=== PATIENT | male | born 1965 | race Two or more races ===

== ENCOUNTER 2024-10-19 14:36 | Inpatient (IN) | payer MEDICAID, OTHER ==
[~2024-10-19] VITALS: Ht 180.3 cm; Wt 66.0 kg
--- NOTE | 2024-10-19 15:40 | ED.PDOC ---
History of Present Illness HPI Comments 59 y/o M, with a Hx of tobacco and EtOH use, presents with c/o shortness of breath and cough, today. Patient endorses on unprovoked onset of symptoms that have been persisting for 1x week, now. He comments on last tobacco cigarette use being 3x weeks ago, with no additional relevant or pertinent Hx reported, such as recent sick contact or travel along with any significant past medical, surgical, or family Hx. He denies having any chest pain, palpitation, phlegm production, fever, chills, or other associated symptoms or modifiers at this time. Time Seen by MD: 15:25 Reviewed Notes: Nurses Notes, Medications, Allergies Allergies: Coded Allergies: NO KNOWN ALLERGIES (Unverified , 10/19/24) Information Source: Patient Mode of Arrival: Ambulatory Severity: Moderate Timing: Weeks Duration: Since onset Prehospital treatment: None Past Medical History PAST MEDICAL HISTORY: Denies Surgical History: Denies all surgeries Family History Family History: Unknown Social History Smoker: Cigarettes Alcohol: Occasionally Drugs: Denies Drug Use Lives In: Home Constitutional: denies: chills, diaphoresis, fatigue, fever, malaise, sweats, weakness, others EENTM: denies: blurred vision, double vision, ear bleeding, ear discharge, ear drainage, ear pain, ear ringing, eye pain, eye redness, hearing loss, mouth pain, mouth swelling, nasal discharge, nose bleeding, nose congestion, nose pain, photophobia, tearing, throat pain, throat swelling, voice changes, others Respiratory: reports: cough, shortness of breath; denies: hemoptysis, orthopnea, SOB at rest, SOB with excertion, stridor, wheezing, others Cardiovascular: denies: chest pain, dizzy spells, diaphoresis, Dyspnea on exertion, edema, irregular heart beat, left arm pain, lightheadedness, palpitations, PND, syncope, others Gastrointestinal: denies: abdomen distended, abdominal pain, blood streaked bowels, constipated, diarrhea, dysphagia, difficulty swallowing, hematemesis, melena, nausea, poor appetite, poor fluid intake, rectal bleeding, rectal pain, vomiting, others Genitourinary: denies: burning, dysuria, flank pain, frequency, hematuria, incontinence, penile discharge, penile sore, pain, testicle pain, testicle swelling, urgency, others Neurological: denies: dizziness, fainting, headache, left sided numbness, left sided weakness, numbness, paresthesia, pre-existing deficit, right sided numbness, right sided weakness, seizure, speech problems, tingling, tremors, weakness, others Musculoskeletal: denies: back pain, gout, joint pain, joint swelling, muscle pain, muscle stiffness, neck pain, others Integumetry: denies: bruises, change in color, change in hair/nails, dryness, laceration, lesions, lumps, rash, wounds, others Allergic/Immunocompromised: denies: Difficulty Healing, Frequent Infections, Hives, Itching, others Hematologic/Lymphatic: denies: anemia, blood clots, easy bleeding, easy bruising, swollen glands, others Endocrine: denies: excessive hunger, excessive sweating, excessive thirst, excessive urination, flushing, intolerance to cold, intolerance to heat, unexpla ined weight gain, unexplained weight loss, others Psychiatric: denies: anxiety, bipolar disorder, depression, hopeless, panic disorder, schizophrenia, sleepless, suicidal, others All Other Systems: Reviewed and Negative Physical Exam General Appearance: Moderate Distress HEENT: Normal ENT Inspection, Pharynx Normal, TMs Normal Neck: Full Range of Motion, Non-Tender, Normal, Normal Inspection Respiratory: Chest Non-Tender, Decreased Breath Sounds, No Accessory Muscle Use, Respiratory Distress Cardiovascular: No Edema, No JVD, No Murmur, No Gallop, Normal Peripheral Pulses, Regular Rate/Rhythm Breast Exam: Deferred Gastrointestinal: No Organomegaly, Non Tender, No Pulsatile Mass, Normal Bowel Sounds, Soft Genitalia: Deferred Pelvic: Deferred Rectal: Deferred Extremities: No calf tenderness, Normal capillary refill, Normal inspection, Normal range of motion, Non-tender, No pedal edema Musculoskeletal : Apperance: Normal Neurologic: Alert, deep fat cook fry II-XII nml as Tested, No Motor Deficits, Normal Affect, Normal Mood, No Sensory Deficits Cerebellar Function: Normal Reflexes: Normal Skin: Dry, Normal Color, Warm Lymphatic: No Adenopathy Was a procedure done? Was a procedure done?: No Differential Dx Considerations may include: PNA, bronchitis, pleural effusions, influenza, Covid19, URI, OK, PE, X-Ray, Labs, Meds, VS Vital Signs Date Time Temp Pulse Resp B/P (MAP) Pulse Ox O2 Delivery O2 Flow Rate FiO2 10/19/24 14:36 99.3 115 20 148/111 (123) 96 Lab Test 10/19/24 16:26 10/19/24 15:35 Range/Units Troponin I High Sensitivity 52 56 *H </=54 ng/L White Blood Count 7.3 4.4-10.8 10^3/uL Red Blood Count 4.78 4.5-5.90 10^6/uL Hemoglobin 15.4 13.5-17.5 g/dL Hematocrit 45.7 41.0-53.0 % Mean Corpuscular Volume 95.7 80.0-100.0 fL Mean Corpuscular Hemoglobin 32.2 H 28.0-32.0 pg Mean Corpuscular Hemoglobin Concent 33.6 32.0-36.0 g/dL Red Cell Distribution Width 14.3 11.8-14.3 % Platelet Count 490 H 140-450 10^3/uL Mean Platelet Volume 7.8 6.9-10.8 fL Neutrophils (%) (Auto) 70.5 37.0-80.0 % Lymphocytes (%) (Auto) 21.1 10.0-50.0 % Monocytes (%) (Auto) 7.0 0.0-12.0 % Eosinophils (%) (Auto) 0.8 0.0-7.0 % Basophils (%) (Auto) 0.6 0.0-2.0 % Neutrophils # (Auto) 5.1 1.6-8.6 10 ^3/uL Lymphocytes # (Auto) 1.5 0.4-5.4 10 ^3/uL Monocytes # (Auto) 0.5 0-1.3 10 ^3/uL Eosinophils # (Auto) 0.1 0-0.8 10 ^3/uL Basophils # (Auto) 0 0-0.2 10 ^3/uL Nucleated Red Blood Cells 0.1 % D-Dimer, Quantitative 2.67 H 0.0-0.49 mg/L FEU Sodium Level 146 H 136-145 mmol/L Potassium Level 4.6 3.5-5.1 mmol/L Chloride Level 109 H 98-107 mmol/L Carbon Dioxide Level 29 20-31 mmol/L Anion Gap 8 5-15 Blood Urea Nitrogen 9 9-23 mg/dL Creatinine 0.73 0.700-1.30 mg/dL Glomerular Filtration Rate Calc 105 >90 mL/min BUN/Creatinine Ratio 12.3 10.0-20.0 Serum Glucose 99 74-106 mg/dL Calcium Level 9.7 8.7-10.4 mg/dL B-Type Natriuretic Peptide 680.31 0-100 pg/mL Chest x-ray shows: IMPRESSION: Severe multifocal airspace disease. The CBC is within normal limits The BNP is 680.2 The D-dimer is elevated at 2.67 The chemistry panel is basically within normal range. We are going to order a CT scan of the chest to rule out PE The troponin level is elevated x2 At this time there is a concern that the patient may have a PC The patient was being admitted to the hospitalist at this time. Images Reviewed?: Images reviewed and evaluated by me Time of 1ST Reevaluation: 15:55 Reevaluation 1ST: Unchanged Patient Education/Counseling: Diagnosis, Treatment, Prognosis Family Education/Counseling: No Family Present Departure 1 Departure Time of Disposition: 18:56 Impression: Primary Impression: Acute chest pain Additional Impressions: Shortness of breath Elevated d-dimer Disposition: ADMITTED INPATIENT Admit to: Tele Condition: Fair Critical Care Note Critical Care Time?: Yes (55 min-critical care time only) Stability Stability form required: Yes Unstable for transfer: Telemetry monitoring (Telemetry monitoring required), ED Physician Assesment (Clinical assesment) Heart Score Heart Score: Heart Score Response (Comments) Value History N/A 0 EKG Normal 0 Age 45-64 1 Risk Factors 1 or 2 risk factors 1 Troponin Normal limit 0 Total 2 I personally scribed for MADDI NAGY MD ([email or web address]) on 10/19/24 at 15:40. Electronically submitted by Donal Courtney ([email or web address]). MADDI NAGY MD Oct 19, 2024 15:40
--- NOTE | 2024-10-19 15:57 | DVH ---
CHEST RADIOGRAPH Indication: sob Technique: Frontal and lateral view of the chest was obtained Comparison: None FINDINGS: Lines and Tubes: None Lungs: Severe multifocal airspace disease. Pleura: No effusion. No pneumothorax. Cardiomediastinal contours: Unremarkable Bones: Unremarkable IMPRESSION: Severe multifocal airspace disease.
[2024-10-19 16:02] LABS: Eosinophils # (auto) 0.1 10 ^3/uL (0-0.8); Hemoglobin 15.4 g/dL (13.5-17.5); Lymphocytes # (auto) 1.5 10 ^3/uL (0.4-5.4); Mean Corpuscular Hemoglobin 32.2 pg (28.0-32.0); Red Cell Distribution Width 14.3 % (11.8-14.3)
[2024-10-19 16:04] LABS: Basophils # (auto) 0 10 ^3/uL (0-0.2); Basophils % (auto) 0.6 % (0.0-2.0); Eosinophils % (auto) 0.8 % (0.0-7.0); Hematocrit 45.7 % (41.0-53.0); Lymphocytes % (auto) 21.1 % (10.0-50.0); Mean Corpuscular Hgb Conc. 33.6 g/dL (32.0-36.0); Mean Corpuscular Volume 95.7 fL (80.0-100.0); Monocytes # (auto) 0.5 10 ^3/uL (0-1.3); Neutrophils # (auto) 5.1 10 ^3/uL (1.6-8.6); Neutrophils % (auto) 70.5 % (37.0-80.0); Nucleated Red Blood Cells % 0.1 %; Platelet Count (auto) 490 10^3/uL (140-450); Red Blood Cells 4.78 10^6/uL (4.5-5.90); White Blood Cell 7.3 10^3/uL (4.4-10.8)
[2024-10-19 16:12] LABS: Potassium 4.6 mmol/L (3.5-5.1)
[2024-10-19 16:13] LABS: Anion Gap 8 (5-15); Calcium 9.7 mg/dL (8.7-10.4); Carbon Dioxide 29 mmol/L (20-31)
[2024-10-19 16:18] LABS: BUN/Creatinine Ratio 12.3 (10.0-20.0); Glucose 99 mg/dL (74-106)
[2024-10-19 16:20] LABS: Blood Urea Nitrogen 9 mg/dL (9-23); Chloride 109 mmol/L (98-107); Sodium 146 mmol/L (136-145)
[2024-10-19] MEDS: IOHEXOL 350 MG/ML 100ML IJ ONE (21:45)
[2024-10-19 22:08] LABS: Basophils # (auto) 0 10 ^3/uL (0-0.2); Basophils % (auto) 0.6 % (0.0-2.0); Eosinophils # (auto) 0.1 10 ^3/uL (0-0.8); Lymphocytes # (auto) 1.6 10 ^3/uL (0.4-5.4)
[2024-10-19 22:09] LABS: Rapid Influenza A Negative (Negative); Rapid Influenza B Negative (Negative)
[2024-10-19 22:10] LABS: Eosinophils % (auto) 0.7 % (0.0-7.0); Lymphocytes % (auto) 19.1 % (10.0-50.0); Mean Corpuscular Hemoglobin 32.4 pg (28.0-32.0); Mean Corpuscular Hgb Conc. 33.4 g/dL (32.0-36.0); Monocytes # (auto) 0.6 10 ^3/uL (0-1.3); Monocytes % (auto) 7.7 % (0.0-12.0); Neutrophils # (auto) 5.9 10 ^3/uL (1.6-8.6); Neutrophils % (auto) 71.9 % (37.0-80.0); Platelet Count (auto) 459 10^3/uL (140-450); Red Blood Cells 4.64 10^6/uL (4.5-5.90); Red Cell Distribution Width 14.6 % (11.8-14.3); White Blood Cell 8.3 10^3/uL (4.4-10.8)
[2024-10-19 22:10] LABS: COVID19 ANTIGEN SOFIA FIA NEGATIVE (NEGATIVE)
--- NOTE | 2024-10-19 22:20 | DVH ---
CLINICAL HISTORY: sob and cp TECHNIQUE: CT angiogram of the chest was performed with intravenous contrast. 100 mL Omnipaque 350 in jected 3D MIP reconstructed images were created and archived on the PACS system. This exam was perfor med according to our departmental dose optimization program. Up-to-date CT equipment and radiation do se reduction techniques are utilized as appropriate. WID: COMPARISON: None FINDINGS: Lower Neck: Unremarkable Axilla, Mediastinum and Angi: Mildly prominent mediastinal and hilar lymph nodes. There is no axillar y lymphadenopathy. Heart and Great Vessels: Mild cardiomegaly. No pericardial effusion. Thoracic aorta is patent and no rmal caliber with patent 3-vessel aortic arch. There is no central, segmental, or subsegmental pulmon pradip artery filling defect to suggest pulmonary embolism. Airway, Lungs and Pleura: Trachea and central airways are patent. There is bronchial wall thickening bilaterally. There are patchy mixed airspace opacities in the bilateral lungs greatest in the right u pper lobe. Interlobular septal thickening in the lungs. There are small to moderate bilateral pleura l effusions. Linear subsegmental atelectasis or scarring in the basilar left upper and lower lobes. M ild paraseptal emphysema. There is no pneumothorax. Chest Wall and Osseous Structures: No destructive osseous lesion. Mild chest wall edema. Upper abdomen: No acute abnormality. IMPRESSION: 1. No evidence of pulmonary embolism. 2. CHF and/or volume overload, with mild cardiomegaly, mild interstitial pulmonary edema and small to moderate bilateral pleural effusions. 3. Patchy mixed airspace opacities bilaterally greatest in the right upper lobe which could reflect m ultifocal pneumonia and/or pulmonary edema.
[2024-10-19 22:21] LABS: Urine Bacteria None Seen /hpf (None Seen)
[2024-10-19 22:25] LABS: Albumin 3.7 g/dL (3.2-4.8); Anion Gap 6 (5-15); BUN/Creatinine Ratio 11.6 (10.0-20.0); Bilirubin, Total 1.2 mg/dL (0.2-1.0); Calcium 9.4 mg/dL (8.7-10.4); Carbon Dioxide 28 mmol/L (20-31); Potassium 3.9 mmol/L (3.5-5.1); Sodium 142 mmol/L (136-145); Total Protein 6.4 g/dL (5.7-8.2)
[2024-10-19 22:27] LABS: Alanine Aminotransferase 40 U/L (7-40); Alkaline Phosphatase 121 U/L (46-116); Aspartate Aminotransferase 49 U/L (13-40); Blood Urea Nitrogen 8 mg/dL (9-23); Chloride 108 mmol/L (98-107); Glucose 108 mg/dL (74-106)
[2024-10-19 22:32] LABS: Urine Blood Negative /uL (Negative); Urine Clarity Clear (Clear); Urine Color Yellow (Yellow); Urine Mucus FEW (None Seen); Urine Protein, UAD 1+ (Negative); Urine Squamous Epithelial Cell FEW /hpf (<5); Urine Urobilinogen 6 mg/dL (Negative); Urine WBC 1 /hpf (0 - 3)
[2024-10-19 22:36] LABS: Urine Specific Gravity 1.035 (1.001-1.035)
[2024-10-19 22:44] LABS: Amphetamine Screen, Urine Neg (NEGATIVE); Barbiturate Scree,Urine Neg (NEGATIVE); Benzodiazephine Screen, Urine Neg (NEGATIVE); Cannabinoid Screen, Urine Neg (NEGATIVE); Cocaine Screen, Urine Neg (NEGATIVE); Opiate Scree,Urine Pos (NEGATIVE); Phencyclidine Screen, Urine Neg (NEGATIVE)
[2024-10-19] MEDS: hydrALAZINE HCL 20 MG/ML VL IV ONE (22:53)
[2024-10-19] MEDS: cefTRIAXone 1GM/50ML D5W 50 ML IV ONE (22:54)
[2024-10-20] VITALS (8 sets, daily range): BP systolic 121–153; BP diastolic 84–106; PULSE 104–112; RESP 16–18; TEMP 97.8–99.6; O2SAT 92–99
[2024-10-20] MEDS: LOSARTAN POTASSIUM 50 MG TAB PO ONE (00:02)
[2024-10-20] MEDS: FUROSEMIDE 40 MG/4 ML VIAL IV ONE (00:02)
[2024-10-20] MEDS: AZITHROMYCIN 500MG/ 250ML 250 ML IV ONE (00:05)
--- NOTE | 2024-10-20 00:09 | DVH ---
Bilateral Chest Sonogram Date: 10/19/2024 10:55 PM Clinical history: B/L pleural effusion Technique: Grayscale images obtained of the bilateral chest. Findings/IMPRESSION: Small to moderate bilateral pleural effusions.
--- NOTE | 2024-10-20 01:04 | DVHHPRES ---
History of Present Illness Resident Creating Document: THAISRAYSAJUANIS RESIDENT History of Present Illness This is a 59-year-old male with past medical history as described below came to the ED with a chief complaint of shortness of breath since the last 7-8 days. Patient reports about a week ago he had flu-like illness with a fever, cough, feels congested he is not able to expectorate the phlegm and since then he has also been having difficulty breathing which has been worsening. Patient denied similar episode of shortness of the breath before. Denies recent history of fevers, night sweats, weight loss. Patient denied any urinary symptoms of hesitancy, frequency, dribbling. Past medical history: No significant Past surgical history: ? Kidney stone removal Social history: Patient smokes a pack of cigarettes per week, pint of whiskey every day, denies other drug use No home medications No PCP Review of Systems Review of Systems Patient reports shortness of breath with increased rate of breathing Denies chest pain, palpitations, headache, dizziness, abdominal pain, pain on urination Allergies: Coded Allergies: NO KNOWN ALLERGIES (Unverified , 10/19/24) Medications Current Medications Medications Dose Ordered Sig/Marifer Route Start Time Stop Time Status Last Admin Dose Admin Furosemide 40 mg DAILY IV 10/20/24 10:00 Ceftriaxone Sodium 50 ml @ 100 mls/hr Q24H IV 10/20/24 21:00 Azithromycin 250 ml @ 125 mls/hr Q24H IV 10/20/24 21:00 Exam Vital Signs Vital Signs Date Time Temp Pulse Resp B/P (MAP) Pulse Ox O2 Delivery O2 Flow Rate FiO2 10/20/24 00:02 156/111 10/20/24 00:00 118 10/19/24 23:45 Room Air* 0 21 10/19/24 23:33 98.3 20 94 98.3 Exam Physical Examination Constitutional: Patient was alert and oriented to time, place and person and does not appear to be in any acute distress. Gen - no pallor, no icterus, no cyanosis, no clubbing, no LAD, 1+ bilateral pitting edema in lower extremities Skin - Patients skin is warm and dry. HEENT - normocephalic, atraumatic, moist mucous membranes. Neck - full ROM, no LAD, no JVD Pulmonary - left lower lung coarse crackles , diminished breath sounds in the right lower lung, no wheezes. cardiovascular - normal S1,S2 heard. no murmurs heard. peripheral pulses radial 2+, pedal 2+. GI - soft abdomen without tenderness to palpation . no hepatospleenomegaly. Bowel sounds normoactive Neurological - Bilateral upper extremity strength 5/5, bilateral lower extremity strength 5/5, no facial droop, normal speech, no tremor, no sensory deficiets. Labs/Xrays Labs Test 10/19/24 22:00 10/19/24 21:58 10/19/24 21:27 10/19/24 18:33 Range/Units White Blood Count 8.3 4.4-10.8 10^3/uL Red Blood Count 4.64 4.5-5.90 10^6/uL Hemoglobin 15.0 13.5-17.5 g/dL Hematocrit 45.0 41.0-53.0 % Mean Corpuscular Volume 97.0 80.0-100.0 fL Mean Corpuscular Hemoglobin 32.4 H 28.0-32.0 pg Mean Corpuscular Hemoglobin Concent 33.4 32.0-36.0 g/dL Red Cell Distribution Width 14.6 H 11.8-14.3 % Platelet Count 459 H 140-450 10^3/uL Mean Platelet Volume 7.2 6.9-10.8 fL Neutrophils (%) (Auto) 71.9 37.0-80.0 % Lymphocytes (%) (Auto) 19.1 10.0-50.0 % Monocytes (%) (Auto) 7.7 0.0-12.0 % Eosinophils (%) (Auto) 0.7 0.0-7.0 % Basophils (%) (Auto) 0.6 0.0-2.0 % Neutrophils # (Auto) 5.9 1.6-8.6 10 ^3/uL Lymphocytes # (Auto) 1.6 0.4-5.4 10 ^3/uL Monocytes # (Auto) 0.6 0-1.3 10 ^3/uL Eosinophils # (Auto) 0.1 0-0.8 10 ^3/uL Basophils # (Auto) 0 0-0.2 10 ^3/uL Nucleated Red Blood Cells 0.0 % Sodium Level 142 136-145 mmol/L Potassium Level 3.9 3.5-5.1 mmol/L Chloride Level 108 H 98-107 mmol/L Carbon Dioxide Level 28 20-31 mmol/L Anion Gap 6 5-15 Blood Urea Nitrogen 8 L 9-23 mg/dL Creatinine 0.69 L 0.700-1.30 mg/dL Glomerular Filtration Rate Calc 107 >90 mL/min BUN/Creatinine Ratio 11.6 10.0-20.0 Serum Glucose 108 H 74-106 mg/dL Calcium Level 9.4 8.7-10.4 mg/dL Total Bilirubin 1.2 H 0.2-1.0 mg/dL Aspartate Amino Transferase (AST) 49 H 13-40 U/L Alanine Aminotransferase (ALT) 40 7-40 U/L Alkaline Phosphatase 121 H 46-116 U/L Total Protein 6.4 5.7-8.2 g/dL Albumin 3.7 3.2-4.8 g/dL Thyroid Stimulating Hormone (TSH) 1.96 0.55-4.78 uIU/mL Urine Color Yellow Yellow Urine Clarity Clear Clear Urine pH 6.0 5.0-9.0 Urine Specific [place] 1.035 1.001-1.035 Urine Protein 1+ H Negative Urine Ketones Negative Negative Urine Blood Negative Negative /uL Urine Nitrite Negative Negative Urine Bilirubin Negative Negative Urine Urobilinogen 6 Negative mg/dL Urine Leukocyte Esterase Negative Negative /uL Urine RBC 1 0 - 3 /hpf Urine WBC 1 0 - 3 /hpf Urine Squamous Epithelial Cells Few <5 /hpf Urine Bacteria None seen None Seen /hpf Urine Mucus Few None Seen Urine Glucose Normal Normal mg/dL Urine Opiates Screen Pos NEGATIVE Urine Fentanyl Screen Neg NEGATIVE Urine Barbiturates Screen Neg NEGATIVE Urine Phencyclidine Screen Neg NEGATIVE Urine Amphetamines Screen Neg NEGATIVE Urine Benzodiazepines Screen Neg NEGATIVE Urine Cocaine Screen Neg NEGATIVE Urine Cannabinoids Screen Neg NEGATIVE Influenza Type A Antigen Negative Negative Influenza Type B Antigen Negative Negative SARS-CoV-2 Antigen (Rapid) Negative NEGATIVE Troponin I High Sensitivity 56 *H </=54 ng/L Test 10/19/24 15:35 Range/Units D-Dimer, Quantitative 2.67 H 0.0-0.49 mg/L FEU B-Type Natriuretic Peptide 680.31 0-100 pg/mL Assessment/Plan Assessment/Plan Assessment # Suspected acute exacerbation of heart failure systolic versus diastolic # Hypertensive heart disease with uncontrolled HTN # Multifocal pneumonia likely due to Gram +/-versus atypical bacteria # NSTEMI, likely type II # PE ruled out # Chronic B/L knee pain , ?osteoarthritis - Chest X-ray shows interstitial pulmonary edema more on the right side, multifocal airspace disease bilaterally - CT angio chest shows 1. No evidence of pulmonary embolism. 2. CHF and/or volume overload, with mild cardiomegaly, mild interstitial pulmonary edema and small to moderate bilateral pleural effusions. 3. Patchy mixed airspace opacities bilaterally greatest in the right upper lobe which could reflect multifocal pneumonia and/or pulmonary edema. - Chest ultrasound shows [id number] bilateral pleural effusion - BNP elevated - troponins trended 56--52--56 - COVID and influenza negative Plan - patient given furosemide 40 mg IV, 1 dose each of azithromycin 500 mg and ceftriaxone 1 g IV, losartan 50 mg - on ceftriaxone 1 g and azithromycin 500 mg IV daily - furosemide 40 mg IV daily - [place] 5/325 chronic knee pain - echo pending - carbohydrate diet Goals of care discussed with the patient for over 25 minutes. Full code Plan discussed with Dr. Gunn Plan discussed with: Patient My Orders Orders - DIONE PLASCENCIA RESIDENT Procedure Category Date Status Time Admit ADMIT 10/19/24 Transmitted 21:29 Oxygen By Nasal RT 10/19/24 Transmitted Cannula 21:29 Notify Of Changes [facility] 10/19/24 In Process From Base 21:29 General Education Instructor For [facility] 10/19/24 In Process 24 Hours 21:29 Emergency Dysrhythmia ANGELA 10/19/24 In Process Protocol 21:29 Echo 2d Mode Cardiac US 10/19/24 Logged DOP 21:30 Respiratory Culture ELO 10/19/24 Logged W/ Gs 21:30 Blood Culture ELO 10/19/24 In Process 21:30 Complete Blood Count LAB 10/20/24 Logged 06:00 Basic Metabolic Panel LAB 10/20/24 Logged 06:00 Electrocardigram EKG 10/19/24 Logged 22:16 Chest Ultrasound US 10/19/24 Resulted 22:19 Cardiac DIET 10/20/24 Verified Diet-2gna,Lofat,Lochol Breakfast Furosemide Injection PHA 10/20/24 In Process (Lasix Injection) 10:00 Ceftriaxone 1gm/50ml PHA 10/20/24 In Process D5w (Rocephin) 21:00 Azithromycin 500mg/ PHA 10/20/24 In Process 250ml (Zithromax 50 21:00 Date of Service: Oct 19, 2024 Billing Provider: JIN GUNN MD Common Visit Codes: [id number] INP/OBS CARE (HIGH) DIONE PLASCENCIA RESIDENT Oct 20, 2024 01:04 JIN GUNN MD Oct 20, 2024 08:51
[2024-10-20] MEDS ORDERED: HYDR-4072 PO (02:08)
[2024-10-20] MEDS: MELATONIN 5 MG TAB PO ONE (02:45)
[2024-10-20] MEDS: HYDROcodone-ACET 5/325MG TAB PO PRN ×2 (02:45→10:28)
[2024-10-20 06:41] LABS: Basophils # (auto) 0 10 ^3/uL (0-0.2); Hemoglobin 15.2 g/dL (13.5-17.5); Lymphocytes # (auto) 1.7 10 ^3/uL (0.4-5.4)
[2024-10-20 06:44] LABS: Basophils % (auto) 0.6 % (0.0-2.0); Eosinophils # (auto) 0.1 10 ^3/uL (0-0.8); Eosinophils % (auto) 0.7 % (0.0-7.0); Lymphocytes % (auto) 20.5 % (10.0-50.0); Mean Corpuscular Hemoglobin 32.8 pg (28.0-32.0); Mean Corpuscular Hgb Conc. 34.5 g/dL (32.0-36.0); Mean Corpuscular Volume 95.1 fL (80.0-100.0); Monocytes # (auto) 0.8 10 ^3/uL (0-1.3); Monocytes % (auto) 9.3 % (0.0-12.0); Neutrophils # (auto) 5.7 10 ^3/uL (1.6-8.6); Neutrophils % (auto) 68.9 % (37.0-80.0); Nucleated Red Blood Cells % 0.1 %; Platelet Count (auto) 469 10^3/uL (140-450); Red Blood Cells 4.63 10^6/uL (4.5-5.90); Red Cell Distribution Width 13.9 % (11.8-14.3); White Blood Cell 8.2 10^3/uL (4.4-10.8)
[2024-10-20 06:50] LABS: Anion Gap 9 (5-15); Carbon Dioxide 27 mmol/L (20-31)
[2024-10-20 06:51] LABS: Calcium 9.5 mg/dL (8.7-10.4)
[2024-10-20 06:54] LABS: Chloride 110 mmol/L (98-107); Potassium 3.4 mmol/L (3.5-5.1); Sodium 146 mmol/L (136-145)
[2024-10-20 06:55] LABS: BUN/Creatinine Ratio 11.1 (10.0-20.0); Glucose 96 mg/dL (74-106)
[2024-10-20 06:59] LABS: Blood Urea Nitrogen 8 mg/dL (9-23)
[2024-10-20] MEDS: POTASSIUM EFFERVESENT TAB 25 MEQ PO ONE (10:27)
[2024-10-20] MEDS: FUROSEMIDE 40 MG/4 ML VIAL IV SCH ×2 (10:27→21:50)
[2024-10-20] MEDS: LOSARTAN POTASSIUM 50 MG TAB PO SCH (10:28)
[2024-10-20] MEDS: ENOXAPARIN SOD 40 MG/0.4 ML SYRINGE SC ONE (12:45)
--- NOTE | 2024-10-20 13:45 | DVHSR ---
APPROVED REPORT EXAM: Two-dimensional and M-mode echocardiogram with Doppler and color Doppler. Blood Pressure: 128/84 mmHg INDICATION Dyspnea RISK FACTORS Height: 5'11", Weight: 163 DIMENSIONS LVDd6.0 (3.8-5.7cm)LA (2D)4.6 (1.9-4.0cm)Aortic Root3.2 (2.0-3.7cm) LVDs5.5 (2.5-4.0cm)LA (MM) (1.9-4.0cm)Aortic Cusp Exc1.6 (1.5-2.0cm) EF (%) 20.0 (55-70%)Rt. Atrium4.3 (1.9-4.0cm)Asc. Aorta3.4 cm IVSd0.9 (0.7-1.1cm)RV (D)4.0 (1.8-2.4cm) PWd1.1 (0.7-1.1cm) Mitral Valve MitralMitral Stenosis E wave0.93m/sMV Mean GR.mmHg E/A ratio0.02D MVAcm2 Aortic Valve Aortic ValveAortic Stenosis V10.57m/Sheri Mean GR.3mmHg V20.97m/Sheri Peak GR.4mmHg LVOT Diameter2.3 (1.8-2.4cm)Doppler AVA2.44cm2 Pulmonic Valve V20.67m/s Tricuspid Valve TR Velocity3.08m/s [id number] LEFT VENTRICLE Mildly Dilated left ventricle. Posterior wall thickness is mildly increased. Diastolic function is indeterminate. Ejection fraction is severely decreased and is estimated at 20%. There is global hypokinesis. RIGHT VENTRICLE Normal. Preserved. ATRIA Mildly dilated. Normal. MITRAL VALVE Normal structure. There is [id number] central mitral regurgitation. PULMONIC VALVE Normal. TRICUSPID VALVE Normal. Trace. AORTIC VALVE Normal trileaflet structure. No significant stenosis. GREAT VESSELS Normal. PERICARDIAL EFFUSION No effusion. Conclusion Dilated left ventricle with severely decreased systolic function. Ejection fraction is estimated at 20%. There is global hypokinesis. Normal right ventricular size with preserved systolic function. [id number] central mitral regurgitation. Otherwise, no significant valvular dysfunction. Mild pulmonary hypertension. PA systolic pressure is estimated at 41 mm Hg. IVC is of normal size and collapses normally with inspiration. No significant pericardial effusion. There is no prior study for comparison.
[2024-10-20] MEDS: SACUBITRIL-VALSARTAN 24mg/26mg TAB PO SCH (15:44)
[2024-10-20] MEDS: ERGOCALCIFEROL 50,000 UNIT(1.25MG) CAP PO SCH (15:45)
--- NOTE | 2024-10-20 19:19 | DVHPNRES ---
Progress Note Date Seen: Oct 20, 2024 Resident Creating Document: GALO MAYO RESIDENT Medical Necessity Reason Pt with a Central, PICC or Fol: No Subjective Review of Systems This is a 59-year-old male with past medical history as described below came to the ED with a chief complaint of shortness of breath since the last 7-8 days. Patient reports about a week ago he had flu-like illness with a fever, cough, feels congested he is not able to expectorate the phlegm and since then he has also been having difficulty breathing which has been worsening. Patient was examined at bedside, he reports saw improvement after the oxygen supplementation, and medical therapy. CT angiogram ruled out pulmonary embolism but there showed volume overload consistent of heart failure exacerbation associated with mild cardiomegaly and mild interstitial pulmonary edema. Small to moderate bilateral pleural effusions also were noted based on these findings the patient was started on Lasix and Entresto to control the volume overload and decreased the blood pressure. Right upper lobe multifocal pneumonia was also seen on CT angio for which the patient was started on ceftriaxone and azithromycin IV Recent echocardiogram showed severely reduced systolic function with an ejection fraction estimated at 20% and global hypokinesia. Cardiology consult, pending. Past medical history: No significant Past surgical history: ? Kidney stone removal Social history: Patient smokes a pack of cigarettes per week, pint of whiskey every day, denies other drug use No home medications No PCP Patient reports: Feels better Changes from previous H/P or p: Changes Objective vital signs Vital Sign Date Time Temp Pulse Resp B/P (MAP) Pulse Ox O2 Delivery O2 Flow Rate FiO2 10/20/24 17:00 97.9 112 18 121/89 (100) 99 97.9 10/20/24 08:00 Room Air* 0 21 Total Intake and Output 10/19/24 10/19/24 10/20/24 15:00 23:00 07:00 Intake Total 1320 ml Output Total 1650 ml Balance -330 ml medications Current Medications Medications Dose Ordered Sig/Marifer Route Start Time Stop Time Status Last Admin Dose Admin Ceftriaxone Sodium 50 ml @ 100 mls/hr Q24H IV 10/20/24 21:00 Azithromycin 250 ml @ 125 mls/hr Q24H IV 10/20/24 21:00 Acetaminophen/ Hydrocodone Bitart 1 tab Q8HPRN PRN PO 10/20/24 03:00 10/20/24 10:28 1 TAB Furosemide 40 mg BID IV 10/20/24 20:00 Sacubitril/ Valsartan 1 tab BID PO 10/20/24 13:00 10/20/24 15:44 1 TAB Ergocalciferol 50,000 unit Q7D PO 10/20/24 12:45 10/20/24 15:45 50,000 UNIT Enoxaparin Sodium 40 mg DAILY SC 10/21/24 10:00 Examination Examination General Appearance: Alert, Oriented X3, Cooperative, No acute distress Respiratory: Crackles bilaterally, no wheezing Cardiovascular: Regular rate, Normal S1, Normal S2 Abdominal: Normal bowel sounds Extremities: No cyanosis, No edema, Normal pulses, No tenderness/swelling Skin: No rashes, No breakdown Neuro: Normal gait, Normal speech, Strength at 5/5 X4 ext, Normal tone, Sensation intact, Cranial nerves 3-12 NL, Reflexes 2+ Psych/Mental Status: Mental status NL, Mood NL laboratory and microbiology Laboratory Tests 10/20/24 06:17 Test 10/20/24 06:17 Range/Units Serum Glucose 96 74-106 mg/dL Problem List/Assessment/Plan Problem List/Assessment/Plan #Acute on chronic hypoxemic respiratory failure likely multifactorial due to community-acquired pneumonia and CHF exacerbation, NYHA III -echocardiogram showed 20% ejection fraction with global hypokinesia -Entresto was started -Lasix b.i.d. IV -cardiology consult is pending -continue antibiotics # Hypertensive heart disease with uncontrolled HTN - same as above # Multifocal pneumonia likely due to Gram +/-versus atypical bacteria -ceftriaxone 1 g IV -azithromycin IV -blood cultures - Sputum cultures # NSTEMI, likely type II -management of underlying condition # PE ruled out CT angiogram ruled out pulmonary embolism # Chronic B/L knee pain , ?osteoarthritis - follow-up in the outpatient - pain protocol #Nicotine dependency -smoking cessation counseling Case discussed with Dr. Gunn Goals of care discussed with the patient for 38 minutes Code status: Full code Plan discussed with: Patient My Orders My Orders Orders - GALO MAYO RESIDENT Procedure Category Date Status Time Furosemide Injection PHA 10/20/24 In Process (Lasix Injection) 20:00 Sacubitril-Valsartan PHA 10/20/24 In Process (Entresto 24-26 Mg 13:00 Ergocalciferol PHA 10/20/24 In Process (Vitamin D 50,000 12:45 Enoxaparin Sodium PHA 10/21/24 In Process (Lovenox) 10:00 Electrocardigram EKG 10/20/24 Logged 12:46 Electrocardigram EKG 10/20/24 Logged 15:46 Date of Service: Oct 20, 2024 Billing Provider: JIN GUNN MD Common Visit Codes: [id number] INP/OBS CARE(MOD) GALO MAYO RESIDENT Oct 20, 2024 19:19 JIN GUNN MD Oct 21, 2024 10:34
[2024-10-20] MEDS: AZITHROMYCIN 500MG/ 250ML 250 ML IV SCH (21:00)
[2024-10-20] MEDS: cefTRIAXone 1GM/50ML D5W 50 ML IV SCH (21:54)
[2024-10-20] MEDS: MELATONIN 5 MG TAB PO SCH (21:55)
[2024-10-20] MEDS ORDERED: MELATONIN 5 MG TAB PO SCH (22:00)
[2024-10-20] MEDS ORDERED: ERGOCALCIFEROL 50,000 UNIT(1.25MG) CAP PO SCH (22:00)
[2024-10-21 01:00] VITALS: BP 112/79; PULSE 112; RESP 18; TEMP 98.4; O2SAT 96
[2024-10-21 05:00] VITALS: BP 125/77; PULSE 103; RESP 18; TEMP 98; O2SAT 96
[2024-10-21 08:00] VITALS: PULSE 98; O2SAT 93
[2024-10-21 09:00] VITALS: BP 121/87; PULSE 106; RESP 18; TEMP 97.9; O2SAT 93
[2024-10-21] MEDS ORDERED: POTA-180 PO (10:10)
[2024-10-21] MEDS ORDERED: ERGO1CAP23 PO (10:10)
[2024-10-21] MEDS ORDERED: CARV-214 PO (10:10)
[2024-10-21] MEDS ORDERED: AZIT-74 PO (10:10)
[2024-10-21] MEDS ORDERED: SACU1TAB PO (10:10)
[2024-10-21] MEDS ORDERED: FURO40TA4 PO (10:10)
--- NOTE | 2024-10-21 10:40 | DVHDSRES ---
Discharge Summary Date of Admission Resident Creating Document: GALO MAYO RESIDENT Oct 19, 2024 at 21:29 Date of Discharge: Oct 21, 2024 Admitting Diagnosis Acute hypoxic respiratory failure due to chf exacerbation multifocal pneumonia Labs/Diagnostic Data: Laboratory Results Test 10/20/24 06:17 10/19/24 22:00 10/19/24 21:58 10/19/24 21:27 White Blood Count 8.2 10^3/uL (4.4-10.8) Red Blood Count 4.63 10^6/uL (4.5-5.90) Hemoglobin 15.2 g/dL (13.5-17.5) Hematocrit 44.0 % (41.0-53.0) Mean Corpuscular Volume 95.1 fL (80.0-100.0) Mean Corpuscular Hemoglobin 32.8 pg (28.0-32.0) Mean Corpuscular Hemoglobin Concent 34.5 g/dL (32.0-36.0) Red Cell Distribution Width 13.9 % (11.8-14.3) Platelet Count 469 10^3/uL (140-450) Mean Platelet Volume 7.7 fL (6.9-10.8) Neutrophils (%) (Auto) 68.9 % (37.0-80.0) Lymphocytes (%) (Auto) 20.5 % (10.0-50.0) Monocytes (%) (Auto) 9.3 % (0.0-12.0) Eosinophils (%) (Auto) 0.7 % (0.0-7.0) Basophils (%) (Auto) 0.6 % (0.0-2.0) Neutrophils # (Auto) 5.7 10 ^3/uL (1.6-8.6) Lymphocytes # (Auto) 1.7 10 ^3/uL (0.4-5.4) Monocytes # (Auto) 0.8 10 ^3/uL (0-1.3) Eosinophils # (Auto) 0.1 10 ^3/uL (0-0.8) Basophils # (Auto) 0 10 ^3/uL (0-0.2) Nucleated Red Blood Cells 0.1 % Sodium Level 146 mmol/L (136-145) Potassium Level 3.4 mmol/L (3.5-5.1) Chloride Level 110 mmol/L (98-107) Carbon Dioxide Level 27 mmol/L (20-31) Anion Gap 9 (5-15) Blood Urea Nitrogen 8 mg/dL (9-23) Creatinine 0.72 mg/dL (0.700-1.30) Glomerular Filtration Rate Calc 106 mL/min (>90) BUN/Creatinine Ratio 11.1 (10.0-20.0) Serum Glucose 96 mg/dL (74-106) Hemoglobin A1c 5.6 % A1C (<5.7) Calcium Level 9.5 mg/dL (8.7-10.4) Magnesium Level 2.1 mg/dL (1.6-2.6) Vitamin B12 Level 831 pg/mL (211-911) Vitamin D 25-Hydroxy 11.4 ng/mL (30.0-100) Total Bilirubin 1.2 mg/dL (0.2-1.0) Aspartate Amino Transferase (AST) 49 U/L (13-40) Alanine Aminotransferase (ALT) 40 U/L (7-40) Alkaline Phosphatase 121 U/L (46-116) Total Protein 6.4 g/dL (5.7-8.2) Albumin 3.7 g/dL (3.2-4.8) Thyroid Stimulating Hormone (TSH) 1.96 uIU/mL (0.55-4.78) Urine Color Yellow (Yellow) Urine Clarity Clear (Clear) Urine pH 6.0 (5.0-9.0) Urine Specific [place] 1.035 (1.001-1.035) Urine Protein 1+ (Negative) Urine Ketones Negative (Negative) Urine Blood Negative /uL (Negative) Urine Nitrite Negative (Negative) Urine Bilirubin Negative (Negative) Urine Urobilinogen 6 mg/dL (Negative) Urine Leukocyte Esterase Negative /uL (Negative) Urine RBC 1 /hpf (0 - 3) Urine WBC 1 /hpf (0 - 3) Urine Squamous Epithelial Cells Few /hpf (<5) Urine Bacteria None seen /hpf (None Seen) Urine Mucus Few (None Seen) Urine Glucose Normal mg/dL (Normal) Urine Opiates Screen Pos (NEGATIVE) Urine Fentanyl Screen Neg (NEGATIVE) Urine Barbiturates Screen Neg (NEGATIVE) Urine Phencyclidine Screen Neg (NEGATIVE) Urine Amphetamines Screen Neg (NEGATIVE) Urine Benzodiazepines Screen Neg (NEGATIVE) Urine Cocaine Screen Neg (NEGATIVE) Urine Cannabinoids Screen Neg (NEGATIVE) Influenza Type A Antigen Negative (Negative) Influenza Type B Antigen Negative (Negative) SARS-CoV-2 Antigen (Rapid) Negative (NEGATIVE) Test 10/19/24 18:33 10/19/24 15:35 Troponin I High Sensitivity 56 ng/L (</=54) D-Dimer, Quantitative 2.67 mg/L FEU (0.0-0.49) B-Type Natriuretic Peptide 680.31 pg/mL (0-100) Other Laboratory Tests 10/20/24 06:17 Brief Hx & Hospital Course: HPI: 59-year-old male patient with a history of hypertension, kidney stone removal presented with shortness of breaths worsening over 7-8 days, fever and flu symptoms. The patient reported worsening dyspnea. He denied any cardiac history and reported not having seen a primary care provider in over 25 years. Social history revealed a long of smoking and alcohol abuse. Hospital course Initial workup showed mild troponin elevation and BNP at 680 pg/ml , CT angiography showed no pulmonary embolism but confirmed bilateral pleural effusion and right upper lobe multifocal pneumonia, EKG shows sinus tachycardia with nonspecific ST depression in inferior leads and prolonged QT, patient was started on diuretics and antibiotics. Medication initiated were Lasix for diuresis and volume control, Entresto for heart failure with reduced ejection fraction and ceftriaxone azithromycin for pneumonia. Patient improved symptoms of shortness of breaths and fluid overload he was advised to follow up with Cardiology in 2 weeks for repeat evaluation and management of heart failure and schedule a primary care visit to establish continuity of care, avoid smoking and alcohol and maintain a low sodium diet to manage fluid retention. Echocardiogram showed 20% ejection fraction for which the patient was Offered inpatient ischemic workup and LifeVest. The patient is adamantly refusing and reports he will not undergo any ischemic workup at this time. Patient requesting only medical management. Disposition: Patient is stable for discharge to home. Case discussed with Dr. Guillaume Goals of care discussed with the patient for 34 minutes Code status: Full code Consults/Reason for consult Cardiology: CHF exacerbation Operations or Procedures [address] [address] Ph: [phone] DIAGNOSTIC IMAGING Diagnostic Imaging Report : [id number] Signed PATIENT: ANISA COMER ACCT: [id number] UNIT: [id number] : 1965 LOC: ER ROOM / BED: / AGE / SEX: 59 / M ADM STATUS: REG ER SERVICE 1527 ORDERING PHYSICIAN: MADDI NAGY MD PROCEDURE(s): CXR2 - CHEST TWO VIEWS ROUTINE REASON: sob ORDER NUMBER(s): [id number], ACCESSION NUMBER(s): [id number] CHEST RADIOGRAPH Indication: sob Technique: Frontal and lateral view of the chest was obtained Comparison: None FINDINGS: Lines and Tubes: None Lungs: Severe multifocal airspace disease. Pleura: No effusion. No pneumothorax. Cardiomediastinal contours: Unremarkable Bones: Unremarkable IMPRESSION: Severe multifocal airspace disease. ATED BY: CHRISTOPHER NELSON MD DICTATED DATE/TIME: 10/19/24 155 SIGNED BY: CHRISTOPHER NELSON MD SIGNED DATE/TIME: 10/19/24 155 CC: [place] [id number] Ph: [phone] DIAGNOSTIC IMAGING Diagnostic Imaging Report : [id number] Signed PATIENT: ANISA COMER ACCT: [id number] UNIT: [id number] : 1965 LOC: TELE ROOM / BED: [facility] / A AGE / SEX: 59 / M ADM STATUS: ADM IN SERVICE 1823 ORDERING PHYSICIAN: MADDI NAGY MD PROCEDURE(s): CTACH - CT ANGIO CHEST CONTRAST REASON: sob and cp ORDER NUMBER(s): [id number], ACCESSION NUMBER(s): [id number] CLINICAL HISTORY: sob and cp TECHNIQUE: CT angiogram of the chest was performed with intravenous contrast. 100 mL Omnipaque 350 injected 3D MIP reconstructed images were created and archived on the PACS system. This exam was performed according to our departmental dose optimization program. Up-to-date CT equipment and radiation dose reduction techniques are utilized as appropriate. WID: COMPARISON: None FINDINGS: Lower Neck: Unremarkable Axilla, Mediastinum and Angi: Mildly prominent mediastinal and hilar lymph nodes. There is no axillary lymphadenopathy. Heart and Great Vessels: Mild cardiomegaly. No pericardial effusion. Thoracic aorta is patent and normal caliber with patent 3-vessel aortic arch. There is no central, segmental, or subsegmental pulmonary artery filling defect to suggest pulmonary embolism. Airway, Lungs and Pleura: Trachea and central airways are patent. There is bronchial wall thickening bilaterally. There are patchy mixed airspace opacities in the bilateral lungs greatest in the right upper lobe. Interlobular septal thickening in the lungs. There are small to moderate bilateral pleural effusions. Linear subsegmental atelectasis or scarring in the basilar left upper and lower lobes. Mild paraseptal emphysema. There is no pneumothorax. Chest Wall and Osseous Structures: No destructive osseous lesion. Mild chest wall edema. Upper abdomen: No acute abnormality. IMPRESSION: 1. No evidence of pulmonary embolism. 2. CHF and/or volume overload, with mild cardiomegaly, mild interstitial pulmonary edema and small to moderate bilateral pleural effusions. 3. Patchy mixed airspace opacities bilaterally greatest in the right upper lobe which could reflect multifocal pneumonia and/or pulmonary edema. ATED BY: FALGUNI HOLM MD DICTATED DATE/TIME: 10/19/242216 SIGNED BY: FALGUNI HOLM MD SIGNED DATE/TIME: 10/19/242216 CC: [place] [id number] Ph: [phone] DIAGNOSTIC IMAGING Diagnostic Imaging Report : [id number] Signed PATIENT: ANISA COMER ACCT: [id number] UNIT: [id number] : 1965 LOC: TELE ROOM / BED: [address] [place] [address] AGE / SEX: 59 / M ADM STATUS: ADM IN SERVICE 18 ORDERING PHYSICIAN: DIONE PLASCENCIA RESIDENT PROCEDURE(s): CHSTU - CHEST ULTRASOUND REASON: B/L pleural effusion ORDER NUMBER(s): [id number], ACCESSION NUMBER(s): [id number] Bilateral Chest Sonogram Date: 10/19/2024 10:55 PM Clinical history: B/L pleural effusion Technique: Grayscale images obtained of the bilateral chest. Findings/IMPRESSION: Small to moderate bilateral pleural effusions. ATED BY: FALGUNI HOLM MD DICTATED DATE/TIME: 10/20/245 SIGNED BY: FALGUNI HOLM MD SIGNED DATE/TIME: 10/20/245 CC: Condition at Discharge: Fair Final Diagnosis/Problems List #Acute on chronic hypoxemic respiratory failure likely multifactorial due to community-acquired pneumonia and CHF exacerbation, NYHA III # Hypertensive heart disease with uncontrolled HTN # Multifocal pneumonia likely due to Gram +/-versus atypical bacteria # NSTEMI, likely type II # PE ruled out # Chronic B/L knee pain , ?osteoarthritis #Nicotine dependency Discharge Disposition: Home SNF Discharge Will this Physician continue t: No Discharge Instruct/Medications Diet: Cardiac 2g Na,low cholest Activity: No Restrictions, As Tolerated Follow Up/Referral: follow up with pcp within 2 weeks [facility] Medications: vit D sup lasix 40 mg po daily KCl 20 mEQ PO qam Entresto 1 tab PO BID Azithromycin 250 mg PO daily Carvedilol 3.125 mg po BID Discharge Statement: "Patient was advised to return to the ER or call 911 if any headaches, dizziness, shortness of breath, chest pain, abdominal pain, bleeding, fevers, or worsening of medical condition. Patient was counseled about treatment plan, medications, possible side effects, patientverbalized understanding. All questions were answered to the best of my ability. This discharge took greater then 30 minutes in planning, reviewing documentation, counseling the patient, and discussing with other team members." ASSESSMENT ASSESSMENT Assessment CHF exacerbation multifocal pneumonia Date of Service: Oct 21, 2024 Billing Provider: JIN GUILLAUME MD Common Visit Codes: [id number] DISCH DAY >30min GALO MAYO RESIDENT Oct 21, 2024 10:39 JIN GUILLAUME MD Oct 22, 2024 10:26
[2024-10-21] MEDS: ENOXAPARIN SOD 40 MG/0.4 ML SYRINGE SC SCH (11:32)
--- NOTE | 2024-10-21 12:01 | DVHINCON2 ---
Date Seen: Oct 21, 2024 Referring Physician MD Prasanna resident History of Present Illness This is a 59-year-old male patient who presents to the emergency room with chief complaint of shortness of breath for one week. The patient describes dyspnea on exertion. He decided to come to the emergency room for further evaluation. Initial twelve lead electrocardiogram reveals sinus tachycardia with nonspecific ST depression to inferior leads and prolonged QTc interval. Initial troponin level of 56ng/L with flat trend thereafter. Initial BNP level of 680.31pg/mL. He denies any chest pain. Significant past medical history includes hypertension, kidney stones, and tobacco use. The patient denies any previous cardiac history. He denies taking any medications at home. He reports that he has not seen a primary care provider in over 25 years. Past Medical History Past medical history reviewed. No other significant than mentioned above. Past Surgical History Kidney stone removal Family History: Patient reports no known family medical history. Family History Family history reviewed. Social History Patient reports smoking one pack of cigarettes per month for 20 years, reports he quit smoking last month Patient admits to drinking 1-2 wine coolers every other day Patient denies any illicit drug use Allergies: Coded Allergies: NO KNOWN ALLERGIES (Unverified , 10/19/24) Home Meds Active Scripts Azithromycin (Zithromax) 250 Mg Tab, 250 MG PO DAILY for 3 Days, #3 TAB Prov:JIN GUNN MD 10/21/24 Potassium Chloride (Potassium Chloride ER) 20 Meq Tab, 20 MEQ PO QAM for 30 Days, #30 TAB Prov:JIN GUNN MD 10/21/24 Furosemide (Furosemide) 40 Mg Tab, 1 TAB PO DAILY, #30 TAB 0 Refills Prov:JIN GUNN MD 10/21/24 Carvedilol (COREG) 3.125 Mg Tab, 3.125 MG PO BID for 30 Days, #60 TAB Prov:JIN GUNN MD 10/21/24 Sacubitril-Valsartan (Entresto 24-26 mg) 1 Tab Tab, 1 TAB PO BID for 30 Days, #60 TAB Prov:JIN GUNN MD 10/21/24 Ergocalciferol (VITAMIN D 85855 UNIT) 50,[address] [place], [address] UNIT PO Q7D for 12 Days, #12 CAP Prov:JIN GUNN MD 10/21/24 Reported Medications Hydrocodone-Acetaminophen (Hydrocodone/Acetaminophen 10-325 mg) 1 Tab Tab, 1 TAB PO PRN for PAIN SCALE 7 THRU 10, TAB 10/20/24 Home Meds Denies taking any prescribed medications Current Medications Current Medications Medications (Trade) Dose Ordered Sig/Marifer Route PRN Reason Start Time Stop Time Status Last Admin Ceftriaxone Sodium 50 ml @ 100 mls/hr Q24H IV 10/20/24 21:00 10/20/24 21:54 Azithromycin 250 ml @ 125 mls/hr Q24H IV 10/20/24 21:00 10/20/24 21:00 Furosemide (Lasix Injection) 40 mg BID IV 10/20/24 20:00 10/21/24 11:32 Sacubitril/ Valsartan (Entresto 24-26 Mg tab) 1 tab BID PO 10/20/24 13:00 10/21/24 11:30 Ergocalciferol (Vitamin D 50,000 Unit) 50,000 unit Q7D PO 10/20/24 12:45 10/20/24 15:45 Enoxaparin Sodium (Lovenox) 40 mg DAILY SC 10/21/24 10:00 10/21/24 11:32 Melatonin (Melatonin) 10 mg HS PO 10/20/24 22:00 10/20/24 21:30 DC Melatonin (Melatonin) 10 mg HS PO 10/20/24 22:00 10/25/24 21:59 10/20/24 21:55 Ergocalciferol (Vitamin D 50,000 Unit) 50,000 unit ONCE PO 10/20/24 22:00 10/21/24 08:56 DC Review of Systems Constitutional: No symptom reported Ears, Nose, & Throat: No symptom reported Eyes: No symptom reported Neurological: No symptoms reported Pulmonary/Respiratory: Shortness of breath Cardiovascular: No symptom reported Gastrointestinal: No symptom reported Genitourinary: No symptom reported Musculoskeletal: No symptom reported Skin: No symptom reported Psychiatric: No symptom reported Endocrine: No symptom reported Hematologic/Lymphatic: No symptom reported Vital Signs Vital Signs Date Time Temp Pulse Resp B/P (MAP) Pulse Ox O2 Delivery O2 Flow Rate FiO2 10/21/24 11:32 121/87 10/21/24 09:00 97.9 106 18 93 97.9 12/27/24 20:00 Room Air* 0 21 Physical Exam General Appearance: Cooperative. Well-developed. Well-nourished. No acute distress. Pulmonary/Respiratory: Diminished bilateral bases Cardiovascular/Chest: Regular rate and rhythm. Peripheral Pulses: 2+ Radial (R). 2+ Radial (L). 2+ Pedal (R). 2+ Pedal (L) Abdominal Exam: Normal bowel sounds. Soft, non-tender. Ankle Exam: Negative ankle edema Lower extremities: Negative lower extremity edema Neuro/Mental Status: A/OX4, coherent. Thoughts/Psych: Normal thought pattern. Appropriate mood and affect. Good judgment and insight. Appearance: No acute distress. Skin Exam: Normal inspection. Normal color. Warm and dry. Labs/Diagnostic Data Labs Test 10/20/24 06:17 10/19/24 22:00 10/19/24 21:58 10/19/24 21:27 Range/Units White Blood Count 8.2 4.4-10.8 10^3/uL Red Blood Count 4.63 4.5-5.90 10^6/uL Hemoglobin 15.2 13.5-17.5 g/dL Hematocrit 44.0 41.0-53.0 % Mean Corpuscular Volume 95.1 80.0-100.0 fL Mean Corpuscular Hemoglobin 32.8 H 28.0-32.0 pg Mean Corpuscular Hemoglobin Concent 34.5 32.0-36.0 g/dL Red Cell Distribution Width 13.9 11.8-14.3 % Platelet Count 469 H 140-450 10^3/uL Mean Platelet Volume 7.7 6.9-10.8 fL Neutrophils (%) (Auto) 68.9 37.0-80.0 % Lymphocytes (%) (Auto) 20.5 10.0-50.0 % Monocytes (%) (Auto) 9.3 0.0-12.0 % Eosinophils (%) (Auto) 0.7 0.0-7.0 % Basophils (%) (Auto) 0.6 0.0-2.0 % Neutrophils # (Auto) 5.7 1.6-8.6 10 ^3/uL Lymphocytes # (Auto) 1.7 0.4-5.4 10 ^3/uL Monocytes # (Auto) 0.8 0-1.3 10 ^3/uL Eosinophils # (Auto) 0.1 0-0.8 10 ^3/uL Basophils # (Auto) 0 0-0.2 10 ^3/uL Nucleated Red Blood Cells 0.1 % Sodium Level 146 H 136-145 mmol/L Potassium Level 3.4 L 3.5-5.1 mmol/L Chloride Level 110 H 98-107 mmol/L Carbon Dioxide Level 27 20-31 mmol/L Anion Gap 9 5-15 Blood Urea Nitrogen 8 L 9-23 mg/dL Creatinine 0.72 0.700-1.30 mg/dL Glomerular Filtration Rate Calc 106 >90 mL/min BUN/Creatinine Ratio 11.1 10.0-20.0 Serum Glucose 96 74-106 mg/dL Hemoglobin A1c 5.6 <5.7 % A1C Calcium Level 9.5 8.7-10.4 mg/dL Magnesium Level 2.1 1.6-2.6 mg/dL Vitamin B12 Level 831 211-911 pg/mL Vitamin D 25-Hydroxy 11.4 L 30.0-100 ng/mL Total Bilirubin 1.2 H 0.2-1.0 mg/dL Aspartate Amino Transferase (AST) 49 H 13-40 U/L Alanine Aminotransferase (ALT) 40 7-40 U/L Alkaline Phosphatase 121 H 46-116 U/L Total Protein 6.4 5.7-8.2 g/dL Albumin 3.7 3.2-4.8 g/dL Thyroid Stimulating Hormone (TSH) 1.96 0.55-4.78 uIU/mL Urine Color Yellow Yellow Urine Clarity Clear Clear Urine pH 6.0 5.0-9.0 Urine Specific [place] 1.035 1.001-1.035 Urine Protein 1+ H Negative Urine Ketones Negative Negative Urine Blood Negative Negative /uL Urine Nitrite Negative Negative Urine Bilirubin Negative Negative Urine Urobilinogen 6 Negative mg/dL Urine Leukocyte Esterase Negative Negative /uL Urine RBC 1 0 - 3 /hpf Urine WBC 1 0 - 3 /hpf Urine Squamous Epithelial Cells Few <5 /hpf Urine Bacteria None seen None Seen /hpf Urine Mucus Few None Seen Urine Glucose Normal Normal mg/dL Urine Opiates Screen Pos NEGATIVE Urine Fentanyl Screen Neg NEGATIVE Urine Barbiturates Screen Neg NEGATIVE Urine Phencyclidine Screen Neg NEGATIVE Urine Amphetamines Screen Neg NEGATIVE Urine Benzodiazepines Screen Neg NEGATIVE Urine Cocaine Screen Neg NEGATIVE Urine Cannabinoids Screen Neg NEGATIVE Influenza Type A Antigen Negative Negative Influenza Type B Antigen Negative Negative SARS-CoV-2 Antigen (Rapid) Negative NEGATIVE Test 10/19/24 18:33 10/19/24 15:35 Range/Units Troponin I High Sensitivity 56 *H </=54 ng/L D-Dimer, Quantitative 2.67 H 0.0-0.49 mg/L FEU B-Type Natriuretic Peptide 680.31 0-100 pg/mL Microbiology Date/Time Source Procedure Growth Status 10/19/24 22:00 Blood Blood Culture - Preliminary NO GROWTH AFTER 24 HOURS OF INCUBATION. Resulted Assessment Acute on chronic decompensated HFrEF, NYHA class III Uncontrolled hypertension Pneumonia NSTEMI type II secondary to above Tobacco use Plan/Recommendation We will continue with the following plan/recommendations (Dr. Finnegan): * Echocardiogram reveals EF 20% with global hypokinesis, RVSP 41mmHg * Initiate GDMT for CHF as tolerated * Strict intake and output, daily weights, maintain fluid restriction * Aggressive diuresis as tolerated * BP control * Antibiotics per primary care team * Risk factor modifications, counseled * Dietary and lifestyle changes The patient denies any previous history of congestive heart failure. Transthoracic echocardiogram on this admission reveals an EF of 20%. Offered the patient inpatient ischemic workup. The patient is adamantly refusing and reports he will not undergo any ischemic workup at this time. Patient requesting only medical management. Thank you for allowing us to care for this patient. Please call with any questions or concerns. Critical care time spent: 40 minutes This medical document was created using an electronic medical record system with voice recognition software and computerized dictation system. Although this document has been carefully reviewed, there might still be some phonetic and typographical errors. Occasional wrong-word or ``sound-alike substitutions may have occurred due to the inherent limitations of voice recognition software. These areas are purely typographical due to imperfections of the software programs and do not reflect any compromise in the patient's medical care. Please read the chart carefully and recognize, using context, where these substitutions have occurred. Plan discussed with: Patient NYHA Physical activity limitations: Class3(Marked) ordinary (activity causes symtoms) Date of Service: Oct 21, 2024 Billing Provider: NOEMÍ DEVI Cardiology Common Codes: 80186-ZDWLNMW INP/OBS CARE (High) Cardiology Consultation Codes: [id number] CONSULT <45MIN NOEMÍ DEVI [facility] Oct 21, 2024 12:01
[2024-10-21 13:00] VITALS: BP 120/90; PULSE 115; RESP 20; TEMP 98.2; O2SAT 96
[2024-10-21 13:39] VITALS: BP 121/87; PULSE 106; RESP 18; TEMP 97.9; O2SAT 93
--- NOTE | 2024-10-21 19:11 | ECG ---
[facility] Test Date: 2024-10-19 Test Time: 22:56:43 Pat Name: ANISA COMER Department: ER Room: 0240T A Gender: M [employer] Professional: VALARIE : 1965 Requested By: DIONE PLASCENCIA Order Number: [id number] Reading MD: Kevyn Finnegan Measurements Intervals [place] Rate: 115 P: 57 CO: 124 QRS: 92 QRSD: 78 T: 217 QT: 450 QTc: 623 Interpretive Statements Sinus tachycardia Probable left atrial enlargement Anterior infarct, old Nonspecific T abnormalities, inferior leads Prolonged QT interval Electronically Signed On 10-22-2024 14:11:13 PST by Kevyn Finnegan Please click the below link to view image of tracing.
[2024-10-22] MEDS ORDERED: SPIRONOLACTONE 25 MG TAB PO SCH (10:00)
[2024-10-22] MEDS ORDERED: EMPAGLIFLOZIN 10 MG TAB PO SCH (10:00)
[2024-10-22] MEDS ORDERED: METOPROLOL SUCCINATE XL 50 MG TAB PO SCH (10:00)
== END 2024-10-21 15:25 | disposition home or self-care (01) | DRG 133 ==
LOC: ER 14:36 → TELE 21:29 → TELE-EAST 10-20 01:25
PROVIDERS: ADMIT Internal Medicine; ATTEND Internal Medicine
DX: J96.21 Acute and chronic respiratory failure with hypoxia (principal); I50.23 Acute on chronic systolic (congestive) heart failure; J15.69 Pneumonia due to other Gram-negative bacteria; I21.A1 Myocardial infarction type 2; I11.0 Hypertensive heart disease with heart failure; J15.9 Unspecified bacterial pneumonia; Z20.822 Contact with and (suspected) exposure to COVID-19; F17.210 Nicotine dependence, cigarettes, uncomplicated; M17.0 Bilateral primary osteoarthritis of knee; Z87.442 Personal history of urinary calculi; Z79.899 Other long term (current) drug therapy
CPT/HCPCS: 36415; 71046; 71275; 76604; 80048; 80053; 80307; 81001; 82306; 82607; 83036; 83735; 83880; 84443; 84484; 85025; 85379; 87040; 87426; 87804; 93005; 93306; 99291; G0378

== ENCOUNTER 2024-11-25 16:04 | Inpatient (IN) | payer MEDICAID ==
[~2024-11-25] VITALS: Ht 180.3 cm; Wt 69.0 kg
[~2024-11-25 16:04] MED LIST: AZIT-74 PO; CARV-214 PO; ERGO1CAP23 PO; FURO40TA4 PO; HYDR-4072 PO; POTA-180 PO; SACU1TAB PO
[2024-11-25] MEDS: ASPirin 325 MG TAB PO ONE (16:30)
--- NOTE | 2024-11-25 17:07 | ED.PDOC ---
SOB-HPI HPI Comments 59 y.o male presents to the ED for a chief complaint of SOB and bilateral leg swelling that presented 2 weeks ago. Patient reports constant ongoing SOB with no productive cough, phlegm, fever, chills, chest pain, nausea, vomiting. Patient also denies any recent leg trauma, pain, or erythema. Patient has no medical, surgical history or allergies. He admits to smoking tobacco and vaping. Chief Complaint: Shortness of Breath Time Seen by MD: 16:40 Reviewed notes: Nurses Notes, Medications, Allergies Information Source: Patient Mode of Arrival: Ambulatory Severity: Moderate Timing: Weeks (2) Duration: Since onset Context: At Rest PE Risk Factors: None History of: None Prehospital treatment: None Modifying Factors: Nothing Associated Signs and Symptoms: Leg Swelling Past Medical History PAST MEDICAL HISTORY: Denies Surgical History: Denies all surgeries Family History Family History: Unknown Social History Smoker: Cigarettes Alcohol: Occasionally Drugs: Denies Drug Use Lives In: Home Constitutional: denies: chills, diaphoresis, fatigue, fever, malaise, sweats, weakness, others EENTM: denies: blurred vision, double vision, ear bleeding, ear discharge, ear drainage, ear pain, ear ringing, eye pain, eye redness, hearing loss, mouth pain, mouth swelling, nasal discharge, nose bleeding, nose congestion, nose pain, photophobia, tearing, throat pain, throat swelling, voice changes, others Respiratory: reports: SOB at rest, shortness of breath, SOB with excertion; denies: cough, hemoptysis, orthopnea, stridor, wheezing, others Cardiovascular: denies: chest pain, dizzy spells, diaphoresis, Dyspnea on exertion, edema, irregular heart beat, left arm pain, lightheadedness, palpitations, PND, syncope, others Gastrointestinal: denies: abdomen distended, abdominal pain, blood streaked bowels, constipated, diarrhea, dysphagia, difficulty swallowing, hematemesis, melena, nausea, poor appetite, poor fluid intake, rectal bleeding, rectal pain, vomiting, others Genitourinary: denies: burning, dysuria, flank pain, frequency, hematuria, incontinence, penile discharge, penile sore, pain, testicle pain, testicle swelling, urgency, others Neurological: denies: dizziness, fainting, headache, left sided numbness, left sided weakness, numbness, paresthesia, pre-existing deficit, right sided numbness, right sided weakness, seizure, speech problems, tingling, tremors, weakness, others Musculoskeletal: reports: others (Bilateral leg swelling ); denies: back pain, gout, joint pain, joint swelling, muscle pain, muscle stiffness, neck pain Integumetry: denies: bruises, change in color, change in hair/nails, dryness, laceration, lesions, lumps, rash, wounds, others Allergic/Immunocompromised: denies: Difficulty Healing, Frequent Infections, Hives, Itching, others Hematologic/Lymphatic: denies: anemia, blood clots, easy bleeding, easy bruising, swollen glands, others Endocrine: denies: excessive hunger, excessive sweating, excessive thirst, excessive urination, flushing, intolerance to cold, intolerance to heat, unexplained weight gain, unexplained weight loss, others Psychiatric: denies: anxiety, bipolar disorder, depression, hopeless, panic disorder, schizophrenia, sleepless, suicidal, others All Other Systems: Reviewed and Negative Physical Exam General Appearance: No Apparent Distress, Normal HEENT: Normal ENT Inspection, Pharynx Normal, TMs Normal Neck: Full Range of Motion, Non-Tender, Normal, Normal Inspection Respiratory: Chest Non-Tender, Lungs Clear, No Accessory Muscle Use, No Respiratory Distress, Normal Breath Sounds Cardiovascular: No Edema, No JVD, No Murmur, No Gallop, Normal Peripheral Pulses, Regular Rate/Rhythm Breast Exam: Deferred Gastrointestinal: No Organomegaly, Non Tender, No Pulsatile Mass, Normal Bowel Sounds, Soft Genitalia: Deferred Pelvic: Deferred Rectal: Deferred Extremities: Leg edema (1+ Bilaterally ), Pedal edema, Other (1+ pitting edema ) Musculoskeletal : Apperance: Normal Neurologic: Alert, 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 Was a procedure done?: No Differential Dx Differential Diagnosis: Anxiety, Asthma, Bronchitis, CHF, COPD, Hyperventilation, Myocardial infarction, Panic Attack, Pneumonia, Pneumothorax, Pulmonary Embolism, Respiratory Distress, URI X-Ray, Labs, Meds, VS Vital Signs Date Time Temp Pulse Resp B/P (MAP) Pulse Ox O2 Delivery O2 Flow Rate FiO2 11/25/24 16:54 18 95 Room Air* 0 21 11/25/24 16:54 98.5 106 18 125/91 (102) 95 11/25/24 16:50 115 Lab Test 11/25/24 18:06 11/25/24 17:02 11/25/24 16:48 Range/Units Troponin I High Sensitivity 46 46 </=54 ng/L White Blood Count 5.4 4.4-10.8 10^3/uL Red Blood Count 4.25 L 4.5-5.90 10^6/uL Hemoglobin 13.1 L 13.5-17.5 g/dL Hematocrit 39.9 L 41.0-53.0 % Mean Corpuscular Volume 93.9 80.0-100.0 fL Mean Corpuscular Hemoglobin 30.9 28.0-32.0 pg Mean Corpuscular Hemoglobin Concent 32.9 32.0-36.0 g/dL Red Cell Distribution Width 15.8 H 11.8-14.3 % Platelet Count 233 140-450 10^3/uL Mean Platelet Volume 8.1 6.9-10.8 fL Neutrophils (%) (Auto) 69.1 37.0-80.0 % Lymphocytes (%) (Auto) 21.3 10.0-50.0 % Monocytes (%) (Auto) 7.8 0.0-12.0 % Eosinophils (%) (Auto) 1.1 0.0-7.0 % Basophils (%) (Auto) 0.7 0.0-2.0 % Neutrophils # (Auto) 3.7 1.6-8.6 10 ^3/uL Lymphocytes # (Auto) 1.1 0.4-5.4 10 ^3/uL Monocytes # (Auto) 0.4 0-1.3 10 ^3/uL Eosinophils # (Auto) 0.1 0-0.8 10 ^3/uL Basophils # (Auto) 0 0-0.2 10 ^3/uL Nucleated Red Blood Cells 0.1 % Sodium Level 144 136-145 mmol/L Potassium Level 4.1 3.5-5.1 mmol/L Chloride Level 109 H 98-107 mmol/L Carbon Dioxide Level 26 20-31 mmol/L Anion Gap 9 5-15 Blood Urea Nitrogen 13 9-23 mg/dL Creatinine 0.88 0.700-1.30 mg/dL Glomerular Filtration Rate Calc 100 >90 mL/min BUN/Creatinine Ratio 14.8 10.0-20.0 Serum Glucose 115 H 74-106 mg/dL Calcium Level 9.3 8.7-10.4 mg/dL B-Type Natriuretic Peptide 764.11 0-100 pg/mL Urine Color Yellow Yellow Urine Clarity Clear Clear Urine pH 6.0 5.0-9.0 Urine Specific [place] 1.028 1.001-1.035 Urine Protein 2+ H Negative Urine Ketones Negative Negative Urine Blood Negative Negative /uL Urine Nitrite Negative Negative Urine Bilirubin Negative Negative Urine Urobilinogen 3 H Negative mg/dL Urine Leukocyte Esterase Negative Negative /uL Urine RBC <1 0 - 3 /hpf Urine Microscopic WBC 1 0-3 /HPF Urine Squamous Epithelial Cells None seen <5 /hpf Urine Bacteria None seen None Seen /hpf Urine Mucus Few None Seen Urine Glucose Normal Normal mg/dL Current Medications Medications (Trade) Dose Ordered Sig/Marifer Route Start Time Stop Time Status Last Admin Aspirin 325 mg ONCE ONCE PO 11/25/24 16:30 11/25/24 16:32 DC 11/25/24 16:30 Time of 1ST Reevaluation: 17:04 Reevaluation 1ST: Unchanged Patient Education/Counseling: Diagnosis, Treatment, Prognosis, Need For Follow Up Family Education/Counseling: No Family Present Additional Information I reviewed the following notes from patient's past medical encounters: 10/19/24 for SOB admitted and discharged on 10/21/24 The following tests were ordered, and results were reviewed by me: ASA, Troponin x3, EKG x3, BMP, BNP, CBC, CXR Additional Information was gathered from interviewing the following independent historians: None I reviewed and agreed with the following test results read by other providers: CXR I discussed treatment and results with medical personnel and hospitalist pt has chf and will be admitted for further treatments and evaluation Departure 1 Departure Time of Disposition: 19:10 Impression: Primary Impression: CHF (congestive heart failure) Qualified Codes: I50.21 - Acute systolic (congestive) heart failure Disposition: ADMITTED INPATIENT Admit to: Tele Condition: Serious Discharged With: Self Critical Care Note Critical Care Time?: Yes (55 min-critical care time only) Critical care comment: due to concerns for deterioration of patient's condition, the care required my highest level of attention and readiness. i assessed the patient's condition, revieweed relavent documents, communicated with medical personnel, ordered the proper tests and treatments, reassed fro results and response to treatments, spoke to family and consultants and formulated a plan of care Stability Stability form required: No I personally scribed for WYATT TORIBIO MD ([email or web address]) on 11/25/24 at 17:07. Electro nically submitted by Rosemarie Morales ([facility]). WYATT TORIBIO MD Nov 25, 2024 17:07
[2024-11-25 17:18] LABS: Basophils # (auto) 0 10 ^3/uL (0-0.2); Basophils % (auto) 0.7 % (0.0-2.0); Eosinophils # (auto) 0.1 10 ^3/uL (0-0.8); Eosinophils % (auto) 1.1 % (0.0-7.0); Hematocrit 39.9 % (41.0-53.0); Hemoglobin 13.1 g/dL (13.5-17.5); Lymphocytes # (auto) 1.1 10 ^3/uL (0.4-5.4); Lymphocytes % (auto) 21.3 % (10.0-50.0); Mean Corpuscular Hemoglobin 30.9 pg (28.0-32.0); Mean Corpuscular Hgb Conc. 32.9 g/dL (32.0-36.0); Mean Corpuscular Volume 93.9 fL (80.0-100.0); Monocytes # (auto) 0.4 10 ^3/uL (0-1.3); Monocytes % (auto) 7.8 % (0.0-12.0); Neutrophils # (auto) 3.7 10 ^3/uL (1.6-8.6); Neutrophils % (auto) 69.1 % (37.0-80.0); Nucleated Red Blood Cells % 0.1 %; Platelet Count (auto) 233 10^3/uL (140-450); Red Blood Cells 4.25 10^6/uL (4.5-5.90); Red Cell Distribution Width 15.8 % (11.8-14.3); White Blood Cell 5.4 10^3/uL (4.4-10.8)
[2024-11-25 17:19] LABS: Urine Bacteria None Seen /hpf (None Seen)
[2024-11-25 17:29] LABS: Urine Blood Negative /uL (Negative); Urine Clarity Clear (Clear); Urine Color Yellow (Yellow); Urine Mucus FEW (None Seen); Urine Protein, UAD 2+ (Negative); Urine Specific Gravity 1.028 (1.001-1.035); Urine Squamous Epithelial Cell None Seen /hpf (<5); Urine Urobilinogen 3 mg/dL (Negative); Urine WBC 1 /HPF (0-3)
[2024-11-25 17:30] LABS: Potassium 4.1 mmol/L (3.5-5.1); Sodium 144 mmol/L (136-145)
[2024-11-25 17:31] LABS: Anion Gap 9 (5-15); Calcium 9.3 mg/dL (8.7-10.4); Carbon Dioxide 26 mmol/L (20-31)
[2024-11-25 17:36] LABS: BUN/Creatinine Ratio 14.8 (10.0-20.0); Blood Urea Nitrogen 13 mg/dL (9-23)
[2024-11-25 17:44] LABS: Chloride 109 mmol/L (98-107)
[2024-11-25 17:45] LABS: Glucose 115 mg/dL (74-106)
--- NOTE | 2024-11-25 18:59 | DVH ---
EXAM: XY CHEST PORTABLE HISTORY: sob COMPARISON: None FINDINGS: LINES AND TUBES: None. CARDIOMEDIASTINAL: The heart is enlarged. The pulmonary vasculature is prominent. Atherosclerotic ca lcification of the aortic arch noted. PULMONARY: Mild interstitial opacities with Steven B-lines noted in the periphery of the lower lung z ones. Blunting of the bilateral costophrenic angles. There is no pneumothorax. BONES/SOFT TISSUES: No acute abnormality is noted. IMPRESSION: 1. Moderate cardiomegaly, pulmonary venous congestion , small bilateral pleural effusions and suggest ion of interstitial edema. Correlate clinically.
[2024-11-25] MEDS ORDERED: ACETAMINOPHEN 325 MG TAB PO PRN (19:30)
[2024-11-25] MEDS ORDERED: DOCUSATE SOD 100 MG CAP PO PRN (19:30)
[2024-11-25] MEDS ORDERED: ONDANSETRON HCL 4 MG/2 ML VIAL IV PRN (19:30)
[2024-11-25 20:00] VITALS: PULSE 118; RESP 20; O2SAT 97
[2024-11-25] MEDS ORDERED: NITROGLYCERIN 0.4 MG SL TAB SL PRN (20:30)
[2024-11-25] MEDS ORDERED: MORPHINE SULFATE INJ 2 MG/ml SYRG IV PRN (20:30)
--- NOTE | 2024-11-25 20:32 | DVHHP2 ---
History of Present Illness Reason for Visit: Acute on chronic systolic heart failure History of Present Illness The patient is a 59-year-old male with past medical history of CHF who presented to [facility] ED with complaint of shortness of breaths. Patient reports symptoms progressively get worse with nonproductive cough, phlegm, fever, chills, chest pain, nausea, vomiting, bilateral lower extremity swelling, getting worse today that prompted this visit. Patient was seen and evaluated in the ED, laboratory data shows WBC 5.4, platelets 233, sodium 144, potassium 4.1, BUN 13, creatinine 0.88, GFR 100, glucose 115, troponin 46, BNP 764.11, blood pressure 125/91, heart rate 106, temperature 98.5 F, O2 saturation 95% on oxygen. Chest x-ray revealing moderate cardiomegaly, pulmonary vascular congestion, small bilateral pleural effusions and suggestion of interstitial edema. Patient was started on IV Lasix, please see medication orders section in the computer. On my assessment, patient denies chest pain, no headache, no dizziness, no diaphoresis, currently on oxygen, no nausea or vomiting at this moment, no fever, no chills. Patient was admitted for further evaluation and medical management. Past Medical History CHF Past Surgical History Denies all surgeries Family History Reviewed, noncontributory to the management of this case. Past Social History The patient lives at home, denies smoking, alcohol or illicit drugs abuse. Review of Systems Constitutional: Yes: Fever, Chills; No: Sweats, Weakness, Malaise, Other Eyes: No: Pain, Vision change, Conjunctivae inflammation, Eyelid inflammation, Other, Redness ENT: No: Ear pain, Ear discharge, Nose pain, Nose discharge, Nose congestion, Mouth pain, Mouth swelling, Throat pain, Throat swelling, Other Respiratory: Cough (Phlegm), Shortness of breath, SOB with excertion, Other (SOB at rest); No: Dry, Wheezing, Hemoptysis, Pleuritic Pain, Sputum, Wheezing Cardiovascular: No: Chest Pain, Palpitations, Orthopnea, Paroxysmal Noc. Dyspnea, Edema, Lt Headedness, Other Gastrointestinal: No: Nausea, Vomiting, Abdominal Pain, Diarrhea, Constipation, Melena, Hematochezia, Other Genitourinary: No Dysuria, No Frequency, No Incontinence, No Hematuria, No Re tention, No Other Musculoskeletal: No: other, neck pain, shoulder pain, arm pain, back pain, hand pain, leg pain, foot pain Skin: No: Rash, Lesions, Jaundice, Bruising, Other Neurological: No: Weakness, Numbness, Incoordination, Change in speech, Confusion, Seizures, Other Allergies: Coded Allergies: NO KNOWN ALLERGIES (Unverified , 10/19/24) Medications Current Medications Medications Dose Ordered Sig/Marifer Route Start Time Stop Time Status Last Admin Dose Admin Aspirin 81 mg DAILY PO 11/26/24 10:00 Carvedilol 3.125 mg Q12HR PO 11/25/24 22:00 Furosemide 40 mg DAILY IV 11/26/24 10:00 Sodium Chloride 10 ml Q8HR IV 11/25/24 22:00 Acetaminophen/ Hydrocodone Bitart 1 tab Q4HP PRN PO 11/25/24 19:30 Ondansetron HCl 4 mg Q4HP PRN IV 11/25/24 19:30 Docusate Sodium 100 mg BIDPRN PRN PO 11/25/24 19:30 Acetaminophen 650 mg Q6HP PRN PO 11/25/24 19:30 Exam Vital Signs Vital Signs Date Time Temp Pulse Resp B/P (MAP) Pulse Ox O2 Delivery O2 Flow Rate FiO2 11/25/24 16:54 18 95 Room Air* 0 21 11/25/24 16:54 98.5 106 125/91 (102) General Appearance: Alert, Oriented X3, Cooperative, No acute distress HEENT: Atraumatic, PERRLA, EOMI, Mucous membr. moist/pink Respiratory: Normal air movement, Other (Diminished breath sounds) Cardiovascular: Regular rate, Normal S1, Normal S2, No murmurs Abdominal: Normal bowel sounds, Soft, No tenderness, No hepatospenomegaly, No masses Extremities: No clubbing, No cyanosis, No edema, Normal pulses, No tenderness/swelling Skin: No rashes, No breakdown, No significant lesion Neuro: Normal speech, Normal tone, Sensation intact, Cranial nerves 3-12 NL, Reflexes 2+, Other (Generalized weakness) Psych/Mental Status: Mental status NL, Mood NL Labs/Xrays Labs Test 11/25/24 18:06 11/25/24 17:02 11/25/24 16:48 Range/Units Troponin I High Sensitivity 46 </=54 ng/L White Blood Count 5.4 4.4-10.8 10^3/uL Red Blood Count 4.25 L 4.5-5.90 10^6/uL Hemoglobin 13.1 L 13.5-17.5 g/dL Hematocrit 39.9 L 41.0-53.0 % Mean Corpuscular Volume 93.9 80.0-100.0 fL Mean Corpuscular Hemoglobin 30.9 28.0-32.0 pg Mean Corpuscular Hemoglobin Concent 32.9 32.0-36.0 g/dL Red Cell Distribution Width 15.8 H 11.8-14.3 % Platelet Count 233 140-450 10^3/uL Mean Platelet Volume 8.1 6.9-10.8 fL Neutrophils (%) (Auto) 69.1 37.0-80.0 % Lymphocytes (%) (Auto) 21.3 10.0-50.0 % Monocytes (%) (Auto) 7.8 0.0-12.0 % Eosinophils (%) (Auto) 1.1 0.0-7.0 % Basophils (%) (Auto) 0.7 0.0-2.0 % Neutrophils # (Auto) 3.7 1.6-8.6 10 ^3/uL Lymphocytes # (Auto) 1.1 0.4-5.4 10 ^3/uL Monocytes # (Auto) 0.4 0-1.3 10 ^3/uL Eosinophils # (Auto) 0.1 0-0.8 10 ^3/uL Basophils # (Auto) 0 0-0.2 10 ^3/uL Nucleated Red Blood Cells 0.1 % Sodium Level 144 136-145 mmol/L Potassium Level 4.1 3.5-5.1 mmol/L Chloride Level 109 H 98-107 mmol/L Carbon Dioxide Level 26 20-31 mmol/L Anion Gap 9 5-15 Blood Urea Nitrogen 13 9-23 mg/dL Creatinine 0.88 0.700-1.30 mg/dL Glomerular Filtration Rate Calc 100 >90 mL/min BUN/Creatinine Ratio 14.8 10.0-20.0 Serum Glucose 115 H 74-106 mg/dL Calcium Level 9.3 8.7-10.4 mg/dL B-Type Natriuretic Peptide 764.11 0-100 pg/mL Urine Color Yellow Yellow Urine Clarity Clear Clear Urine pH 6.0 5.0-9.0 Urine Specific [place] 1.028 1.001-1.035 Urine Protein 2+ H Negative Urine Ketones Negative Negative Urine Blood Negative Negative /uL Urine Nitrite Negative Negative Urine Bilirubin Negative Negative Urine Urobilinogen 3 H Negative mg/dL Urine Leukocyte Esterase Negative Negative /uL Urine RBC <1 0 - 3 /hpf Urine Microscopic WBC 1 0-3 /HPF Urine Squamous Epithelial Cells None seen <5 /hpf Urine Bacteria None seen None Seen /hpf Urine Mucus Few None Seen Urine Glucose Normal Normal mg/dL PATIENT: ANISA COMER ACCT: [id number] UNIT: [id number] : 1965 LOC: ER ROOM / BED: / AGE / SEX: 59 / M ADM STATUS: REG ER SERVICE 1630 ORDERING PHYSICIAN: WYATT TORIBIO MD PROCEDURE(s): CXRP - CHEST PORTABLE REASON: sob ORDER NUMBER(s): [id number], ACCESSION NUMBER(s): [id number] EXAM: XY CHEST PORTABLE HISTORY: sob COMPARISON: None FINDINGS: LINES AND TUBES: None. CARDIOMEDIASTINAL: The heart is enlarged. The pulmonary vasculature is promi nent. Atherosclerotic calcification of the aortic arch noted. PULMONARY: Mild interstitial opacities with Steven B-lines noted in the periphery of the lower lung zones. Blunting of the bilateral costophrenic angles. There is no pneumothorax. BONES/SOFT TISSUES: No acute abnormality is noted. IMPRESSION: 1. Moderate cardiomegaly, pulmonary venous congestion, small bilateral pleural effusions and suggestion of interstitial edema. Correlate clinically. Assessment/Plan Assessment/Plan Acute systolic (congestive) heart failure Generalized weakness Plan 1. Admit to telemetry unit 2. Breathing treatment 3. Pain control management 4. Management of fluids and electrolytes 5. Consultation for Cardiology 6. Diagnostic tests chest x-ray 7. DVT prophylaxis-on aspirin 8. Repeat labs CBC, CMP in a.m. 9. Continue with current medical management 10. Treatment plan discussed with patient and RN. Patient verbalized understanding. Plan discussed with: Patient, Other (RN) My Orders Orders - REBEKAH PEDERSON DNP Procedure Category Date Status Time Aspirin Tablet PHA 11/26/24 In Process 10:00 Carvedilol Tablet PHA 11/25/24 In Process (Coreg Tablet) 22:00 Furosemide Injection PHA 11/26/24 In Process (Lasix Injection) 10:00 * Cardiology Consult CONS 11/25/24 Transmitted 19:26 Allergies ANGELA 11/25/24 In Process 19:26 Code Status CODE 11/25/24 Transmitted 19:26 Sodium Chloride Lock PHA 11/25/24 In Process (Saline Lock Ns) 22:00 Oxygen Per Hour RT 11/25/24 Transmitted 19:26 Hydrocodone-Acet PHA 11/25/24 In Process 5/325mg Tab ([place] 19:30 Ondansetron Hcl PHA 11/25/24 In Process (Zofran) 19:30 Docusate Sodium PHA 11/25/24 In Process Capsule (Colace 19:30 Complete Blood Count LAB 11/26/24 Verified 04:00 Comprehensive LAB 11/26/24 Verified Metabolic Panel 04:00 Cardiac DIET 11/26/24 Transmitted Diet-2gna,Lofat,Lochol Breakfast Condition: Serious ANGELA 11/25/24 In Process 19:26 Acetaminophen Tablet PHA 11/25/24 In Process (Tylenol Tablet) 19:30 Bedrest With Bathroom ANGELA 11/25/24 In Process Privileg 19:26 Sequential ANGELA 11/25/24 In Process Compression Device Admit ADMIT 11/25/24 Verified 20:30 Nitroglycerin PHA 11/25/24 Verified Sublingual (Ntrostat 20:30 Morphine Sulfate PHA 11/25/24 Verified Injection 20:30 Notify Md Of Changes ANGELA 11/25/24 Verified From Base 20:30 Ekg Monitor Tech For [facility] [place] 11/25/24 Verified 24 Hours 20:30 Emergency Dysrhythmia ANGELA 11/25/24 Verified Protocol 20:30 Problem List: (1) Acute systolic (congestive) heart failure (2) Generalized weakness Date of Service: Nov 25, 2024 Billing Provider: REBEKAH PEDERSON DNP Common Visit Codes: [id number] INP/OBS CARE (HIGH) REBEKAH PEDERSON DNP Nov 25, 2024 20:32
[2024-11-25] MEDS: FUROSEMIDE 40 MG/4 ML VIAL IV ONE (21:14)
[2024-11-25 21:18] VITALS: PULSE 106; RESP 16; O2SAT 95
[2024-11-25] MEDS: SODIUM CHLOR 0.9% PF (SALINE LOCK) 10ML VIAL/SYR IV SCH (22:26)
[2024-11-25] MEDS: CARVEDILOL 3.125 MG TAB PO SCH (22:29)
[2024-11-25 23:06] VITALS: PULSE 108; RESP 20; O2SAT 97
[2024-11-25 23:08] VITALS: BP 106/79; PULSE 108; RESP 20; TEMP 98.8; O2SAT 97
[2024-11-25] MEDS ORDERED: HYDR1TAB97 PO (23:14)
[2024-11-26] VITALS (9 sets, daily range): BP systolic 108–129; BP diastolic 76–99; PULSE 84–108; RESP 14–20; TEMP 97.5–98; O2SAT 90–98
[2024-11-26] MEDS: HYDROcodone-ACET 5/325MG TAB PO PRN (02:18)
[2024-11-26 06:52] LABS: Basophils # (auto) 0 10 ^3/uL (0-0.2); Basophils % (auto) 0.4 % (0.0-2.0); Eosinophils # (auto) 0.1 10 ^3/uL (0-0.8); Eosinophils % (auto) 0.9 % (0.0-7.0); Hematocrit 39.2 % (41.0-53.0); Lymphocytes # (auto) 1.7 10 ^3/uL (0.4-5.4); Lymphocytes % (auto) 24.5 % (10.0-50.0); Mean Corpuscular Volume 93.8 fL (80.0-100.0); Monocytes # (auto) 0.5 10 ^3/uL (0-1.3); Monocytes % (auto) 7.7 % (0.0-12.0); Neutrophils # (auto) 4.7 10 ^3/uL (1.6-8.6); Neutrophils % (auto) 66.5 % (37.0-80.0); Nucleated Red Blood Cells % 0.1 %; Platelet Count (auto) 242 10^3/uL (140-450); Red Blood Cells 4.18 10^6/uL (4.5-5.90); Red Cell Distribution Width 15.6 % (11.8-14.3); White Blood Cell 7.1 10^3/uL (4.4-10.8)
[2024-11-26 07:15] LABS: Albumin 4.1 g/dL (3.2-4.8); Anion Gap 11 (5-15); BUN/Creatinine Ratio 19.4 (10.0-20.0); Blood Urea Nitrogen 18 mg/dL (9-23); Calcium 9.4 mg/dL (8.7-10.4); Carbon Dioxide 26 mmol/L (20-31); Chloride 106 mmol/L (98-107); Glucose 97 mg/dL (74-106); Potassium 3.7 mmol/L (3.5-5.1); Sodium 143 mmol/L (136-145); Total Protein 6.4 g/dL (5.7-8.2)
[2024-11-26 07:26] LABS: Alanine Aminotransferase 48 U/L (7-40); Alkaline Phosphatase 137 U/L (46-116); Aspartate Aminotransferase 60 U/L (13-40); Bilirubin, Total 1.4 mg/dL (0.2-1.0)
[2024-11-26] MEDS: FUROSEMIDE 40 MG/4 ML VIAL IV SCH (10:05)
[2024-11-26] MEDS: ASPirin 81 mg TAB PO SCH (10:06)
[2024-11-26 11:10] LABS: Rapid Influenza A Negative (Negative); Rapid Influenza B Negative (Negative)
[2024-11-26 11:11] LABS: COVID19 ANTIGEN SOFIA FIA NEGATIVE (NEGATIVE)
--- NOTE | 2024-11-26 12:11 | ECG ---
[facility] Test Date: 2024-11-25 Test Time: 16:50:44 Pat Name: ANISA COMER Department: ER Room: 0288T Gender: M Analytical Tech: GEORGIE : 1965 Requested By: WYATT TORIBIO Order Number: [id number] Reading MD: Measurements Intervals Guin Rate: 115 P: 69 TN: 126 QRS: 95 QRSD: 76 T: -4 QT: 356 QTc: 493 Interpretive Statements Sinus tachycardia Multiform ventricular premature complexes Aberrant complex Probable left atrial enlargement Borderline right axis deviation Left ventricular hypertrophy Anterior Q waves, possibly due to LVH Please click the below link to view image of tracing.
--- NOTE | 2024-11-26 13:42 | DVHINCON2 ---
Date Seen: Nov 26, 2024 Referring Physician VALARIE Alberts Reason for Consultation CHF exacerbation History of Present Illness This is a 59-year-old male patient who presents to emergency room with chief complaint of shortness of breath and bilateral lower extremity for approximately two weeks. He admits to dietary indiscretions such as eating fast food and also reports that he ran out of his medications and has not taken his medications in three weeks. He comes to the emergency room for further evaluation. Cardiology has been consulted for CHF exacerbation. Initial twelve lead electrocardiogram reveals sinus tachycardia with left ventricular hypertrophy. Initial troponin level of 46ng/L with flat trend thereafter. Initial BNP level of 764.11pg/mL. Significant past medical history includes congestive heart failure, hypertension, kidney stones, and tobacco use. The patient was recently seen at this facility in September of 2024. 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 Past Medical History Past medical history reviewed. No other significant than mentioned above. Past Surgical History Renal lithotripsy Family History: Patient reports no known family medical history. Family History Family history reviewed. Social History Patient reports smoking one pack of cigarettes per month for 20 years, reports he quit smoking last month Patient admits to drinking 1-2 wine coolers every other day Patient denies any illicit drug use Allergies: Coded Allergies: NO KNOWN ALLERGIES (Unverified , 10/19/24) Home Meds Active Scripts Potassium Chloride (Potassium Chloride ER) 20 Meq Tab, 20 MEQ PO QAM for 30 Days, #30 TAB Prov:JIN GUNN MD 10/21/24 Furosemide (Furosemide) 40 Mg Tab, 1 TAB PO DAILY, #30 TAB 0 Refills Prov:JIN GUNN MD 10/21/24 Carvedilol (COREG) 3.125 Mg Tab, 3.125 MG PO BID for 30 Days, #60 TAB Prov:JIN GUNN MD 10/21/24 Reported Medications Hydrocodone-Acetaminophen (Hydrocodone/Acetaminophen 5-325 mg) 1 Tab Tab, 1 TAB PO TID, TAB 11/25/24 Home Meds Home medications reviewed. Current Medications Current Medications Medications (Trade) Dose Ordered Sig/Marifer Route PRN Reason Start Time Stop Time Status Last Admin Aspirin 81 mg DAILY PO 11/26/24 10:00 11/26/24 10:06 Carvedilol (Coreg Tablet) 3.125 mg Q12HR PO 11/25/24 22:00 11/26/24 10:06 Furosemide (Lasix Injection) 40 mg DAILY IV 11/26/24 10:00 11/26/24 10:05 Sodium Chloride (Saline Lock Ns) 10 ml Q8HR IV 11/25/24 22:00 11/26/24 06:36 Acetaminophen/ Hydrocodone Bitart ([place] 5/325MG Tab) 1 tab Q4HP PRN PO MODERATE PAIN (4-6 PAIN SCALE) 11/25/24 19:30 11/26/24 02:18 Ondansetron HCl (Zofran) 4 mg Q4HP PRN IV NAUSEA / VOMITING 11/25/24 19:30 Docusate Sodium (Colace Capsule) 100 mg BIDPRN PRN PO FOR CONSTIPATION 11/25/24 19:30 Acetaminophen (Tylenol Tablet) 650 mg Q6HP PRN PO PAIN SCALE 1-3 OR TEMP>100.4 11/25/24 19:30 Nitroglycerin (Ntrostat Sublingual) 0.4 mg Q5MINP PRN SL FOR CHEST PAIN 11/25/24 20:30 Morphine Sulfate 2 mg Q30M PRN IV FOR CHEST PAIN 11/25/24 20:30 Review of Systems Constitutional: No symptom reported Ears, Nose, & Throat: No symptom reported Eyes: No symptom reported Neurological: No symptoms reported Pulmonary/Respiratory: Shortness of breath Cardiovascular: Bilateral lower extremity edema Gastrointestinal: No symptom reported Genitourinary: No symptom reported Musculoskeletal: No symptom reported Skin: No symptom reported Psychiatric: No symptom reported Endocrine: No symptom reported Hematologic/Lymphatic: No symptom reported Vital Signs Vital Signs Date Time Temp Pulse Resp B/P (MAP) Pulse Ox O2 Delivery O2 Flow Rate FiO2 11/26/24 10:06 108 129/99 11/26/24 09:00 97.9 18 90 97.9 11/26/24 08:00 Room Air* 0 21 Physical Exam General Appearance: Cooperative. Well-developed. Well-nourished. No acute distress. Pulmonary/Respiratory: Diminished bilateral bases Cardiovascular/Chest: Regular rate and rhythm. Peripheral Pulses: 2+ Radial (R). 2+ Radial (L). 2+ Pedal (R). 2+ Pedal (L) Abdominal Exam: Normal bowel sounds. Ankle Exam: 1+ pitting edema Lower extremities: 1+ pitting edema Neuro/Mental Status: A/OX4, coherent. Thoughts/Psych: Normal thought pattern. Appropriate mood and affect. Good judgment and insight. Appearance: No acute distress. Skin Exam: Normal inspection. Normal color. Warm and dry. Labs/Diagnostic Data Labs Test 11/26/24 10:10 11/26/24 05:52 11/25/24 18:06 11/25/24 17:02 Range/Units Influenza Type A Antigen Negative Negative Influenza Type B Antigen Negative Negative SARS-CoV-2 Antigen (Rapid) Negative NEGATIVE White Blood Count 7.1 # 4.4-10.8 10^3/uL Red Blood Count 4.18 L 4.5-5.90 10^6/uL Hemoglobin 13.0 L 13.5-17.5 g/dL Hematocrit 39.2 L 41.0-53.0 % Mean Corpuscular Volume 93.8 80.0-100.0 fL Mean Corpuscular Hemoglobin 31.0 28.0-32.0 pg Mean Corpuscular Hemoglobin Concent 33.0 32.0-36.0 g/dL Red Cell Distribution Width 15.6 H 11.8-14.3 % Platelet Count 242 140-450 10^3/uL Mean Platelet Volume 8.9 6.9-10.8 fL Neutrophils (%) (Auto) 66.5 37.0-80.0 % Lymphocytes (%) (Auto) 24.5 10.0-50.0 % Monocytes (%) (Auto) 7.7 0.0-12.0 % Eosinophils (%) (Auto) 0.9 0.0-7.0 % Basophils (%) (Auto) 0.4 0.0-2.0 % Neutrophils # (Auto) 4.7 1.6-8.6 10 ^3/uL Lymphocytes # (Auto) 1.7 0.4-5.4 10 ^3/uL Monocytes # (Auto) 0.5 0-1.3 10 ^3/uL Eosinophils # (Auto) 0.1 0-0.8 10 ^3/uL Basophils # (Auto) 0 0-0.2 10 ^3/uL Nucleated Red Blood Cells 0.1 % Sodium Level 143 136-145 mmol/L Potassium Level 3.7 3.5-5.1 mmol/L Chloride Level 106 98-107 mmol/L Carbon Dioxide Level 26 20-31 mmol/L Anion Gap 11 5-15 Blood Urea Nitrogen 18 9-23 mg/dL Creatinine 0.93 0.700-1.30 mg/dL Glomerular Filtration Rate Calc 95 >90 mL/min BUN/Creatinine Ratio 19.4 10.0-20.0 Serum Glucose 97 74-106 mg/dL Calcium Level 9.4 8.7-10.4 mg/dL Total Bilirubin 1.4 H 0.2-1.0 mg/dL Aspartate Amino Transferase (AST) 60 H 13-40 U/L Alanine Aminotransferase (ALT) 48 H 7-40 U/L Alkaline Phosphatase 137 H 46-116 U/L Total Protein 6.4 5.7-8.2 g/dL Albumin 4.1 3.2-4.8 g/dL Troponin I High Sensitivity 46 </=54 ng/L B-Type Natriuretic Peptide 764.11 0-100 pg/mL Test 11/25/24 16:48 Range/Units Urine Color Yellow Yellow Urine Clarity Clear Clear Urine pH 6.0 5.0-9.0 Urine Specific [place] 1.028 1.001-1.035 Urine Protein 2+ H Negative Urine Ketones Negative Negative Urine Blood Negative Negative /uL Urine Nitrite Negative Negative Urine Bilirubin Negative Negative Urine Urobilinogen 3 H Negative mg/dL Urine Leukocyte Esterase Negative Negative /uL Urine RBC <1 0 - 3 /hpf Urine Microscopic WBC 1 0-3 /HPF Urine Squamous Epithelial Cells None seen <5 /hpf Urine Bacteria None seen None Seen /hpf Urine Mucus Few None Seen Urine Glucose Normal Normal mg/dL Assessment Acute on chronic decompensated HFrEF, NYHA class III NSTEMI type II secondary to above Hypertension Tobacco use Medical noncompliance Plan/Recommendation We will continue with the following plan/recommendations (Dr. Aponte): * Echocardiogram from 10/20/24 reveals EF 20% with global hypokinesis, RVSP 41mmHg * Initiate GDMT for CHF as tolerated * Strict intake and output, daily weights, maintain fluid restriction * Aggressive diuresis as tolerated * BP control * Risk factor modifications, counseled * Dietary and lifestyle changes * Medication compliance Patient seen and examined at bedside with . Given the patient's medical noncompliance, we will recommend for conservative medical management for the time being. Consider outpatient ischemic workup in the future. There is no further inpatient cardiac workup indicated at this time. Patient educated to follow up with Cardiology in the outpatient setting in 1-2 weeks post discharge. The patient may qualify for ICD placement if no improvement in EF within 3-6 months on uninterrupted guideline directed medical therapy for CHF. Thank you for allowing us to care for this patient. Please call with any questions or con cerns. Critical care time spent: 42 minutes This medical document was created using an electronic medical record system with voice recognition software and computerized dictation system. Although this document has been carefully reviewed, there might still be some phonetic and typographical errors. Occasional wrong-word or ``sound-alike substitutions may have occurred due to the inherent limitations of voice recognition software. These areas are purely typographical due to imperfections of the software programs and do not reflect any compromise in the patient's medical care. Please read the chart carefully and recognize, using context, where these substitutions have occurred. Plan discussed with: Patient NYHA Physical activity limitations: Class3(Marked) ordinary (activity causes symtoms) Date of Service: Nov 26, 2024 Billing Provider: NOEÍM DEVI Cardiology Common Codes: [id number] INP/OBS CARE (High) Cardiology Consultation Codes: [id number] CONSULT <45MIN NOEMÍ DEVI Nov 26, 2024 13:42
--- NOTE | 2024-11-26 16:28 | DVHPNRES ---
Progress Note Date Seen: Nov 26, 2024 Resident Creating Document: WILFRIDO KING RESIDENT Has the PT tested + for MRSA If YES, has PT been informed?: No Medical Necessity Reason Pt with a Central, PICC or Fol: No Medical Necessity Reason Shortness of breath Subjective Review of Systems This is a 59-year-old male with past medical history of CHF and 50 pack- years presented to [facility] ED with complaint of shortness of breaths. Patient reported that his symptoms progressively became worse with nonproductive cough, phlegm, fever, chills, chest pain, nausea, vomiting, bilateral worsening lower extremity.of note, patient was seen here in October 13, 2024 with similar symptoms such as shortness of breath bilateral pitting edema. An EKG and echo done then revealed an ejection fraction of 20% patient was started on furosemide and carvedilol. At that time patient refused any ischemic workup. In the ED, laboratory data showed WBC 5.4, platelets 233, sodium 144, potassium 4.1, BUN 13, creatinine 0.88, GFR 100, glucose 115, troponin 46, BNP 764.11, blood pressure 125/91, heart rate 106, temperature 98.5 F, O2 saturation 95% on oxygen. Chest x-ray revealing moderate cardiomegaly, pulmonary vascular congestion, small bilateral pleural effusions and suggestion of interstitial edema. Patient was started on IV Lasix, On my assessment, patient denied chest pain, headache, dizziness, diaphoresis, currently on oxygen, nausea or vomiting at this moment, no fever, no chills. Patient was admitted for further evaluation and medical management. Patient has actually been walking up and down the hallway NSAID the yesterday when he came in he was unable to walk from his bed to the bathroom. However today, patient has been able to walk all the way down to the cafeteria and back with a feeling shortness of breath. He was happy about the Lasix he was given and made his symptoms better. Patient seemed to be noncompliant with his medication. He was seen here about 2 months ago in September where he was given furosemide and carvedilol but it does not seem to be compliant with his medications. Notably, patient was scratching his skin a lot. Constitutional: Denies fever no chills no feeling of malaise HEENT: Denies headache, ear pain, ear discharges, conjunctivitis, nasal discharge throat pain Cardiovascular: Denies chest pain, palpitation, orthopnea, PND, or pedal edema Respiratory: Denies shortness of breath, cough cough, sputum production, hemoptysis, GI: Denies abdominal pain, nausea, vomiting, diarrhea, hematemesis, hematochezia, : Denies frequency, urgency, hematuria, Endocrine: Denies unintentional weight gain or weight loss, feeling of hot flashes, Jax: Denies easy bruising, bleeding disorders, epistaxis Musculoskeletal: Bilateral leg swelling Psych: No evidence of depression, christopher, suicidal ideation Objective vital signs Vital Sign Date Time Temp Pulse Resp B/P (MAP) Pulse Ox O2 Delivery O2 Flow Rate FiO2 11/26/24 13:00 97.9 102 20 108/76 (87) 90 97.9 11/26/24 08:00 Room Air* 0 21 Total Intake and Output 11/25/24 11/25/24 11/26/24 15:00 23:00 07:00 Intake Total 700 ml Balance 700 ml medications Current Medications Medications Dose Ordered Sig/Marifer Route Start Time Stop Time Status Last Admin Dose Admin Aspirin 81 mg DAILY PO 11/26/24 10:00 11/26/24 10:06 81 MG Carvedilol 3.125 mg Q12HR PO 11/25/24 22:00 11/26/24 10:06 3.125 MG Furosemide 40 mg DAILY IV 11/26/24 10:00 11/26/24 10:05 40 MG Sodium Chloride 10 ml Q8HR IV 11/25/24 22:00 11/26/24 14:00 10 ML Acetaminophen/ Hydrocodone Bitart 1 tab Q4HP PRN PO 11/25/24 19:30 11/26/24 02:18 1 TAB Ondansetron HCl 4 mg Q4HP PRN IV 11/25/24 19:30 Docusate Sodium 100 mg BIDPRN PRN PO 11/25/24 19:30 Acetaminophen 650 mg Q6HP PRN PO 11/25/24 19:30 Nitroglycerin 0.4 mg Q5MINP PRN SL 11/25/24 20:30 Morphine Sulfate 2 mg Q30M PRN IV 11/25/24 20:30 Examination General Appearance: Alert, Oriented X3, Cooperative, No acute distress HEENT: Atraumatic, PERRLA, EOMI, Mucous membrane moist/pink Respiratory: Clear to auscultation, Normal air movement Cardiovascular: Regular rate, Normal S1, Normal S2, No murmurs, no chest wall tenderness Abdominal: NO distention, no tenderness, bowel sounds present, no scars noted Extremities:+1-2 pitting edema Skin: No rashes, No breakdown, No significant lesion Neuro: Normal gait, Normal speech, Strength at 5/5 X4 ext, Normal tone, Sensation intact, Cranial nerves 3-12 NL, Reflexes 2+ Psych/Mental Status: Mental status NL, Mood NL laboratory and microbiology Laboratory Tests 11/26/24 05:52 Test 11/26/24 05:52 Range/Units Serum Glucose 97 74-106 mg/dL Problem List/Assessment/Plan Problem List/Assessment/Plan Assessment Acute on chronic decompensated HFrEF, Echo 20% Hypertensive urgency Moderate cardiomegaly pulmonary edema 50 pack- years smoking history Plan initiate GDMT as patient can tolerate furosemide 40 mg daily BP control Strict intake and output, daily weights, maintain fluid restriction Risk factor modifications and medication adherence educated Code status: Full Goal of care discussed for more than 35 minute Case and plan discussed with Dr. Steele Plan discussed with: Patient My Orders My Orders Orders - WILFRIDO KING Procedure Category Date Status Time Drug Screen LAB 11/26/24 Logged 09:39 * Cardiology Consult CONS 11/26/24 Transmitted 16:25 Date of Service: Nov 26, 2024 Billing Provider: SHANTE STEELE MD Common Visit Codes: [id number] INP/OBS CARE(HIGH) WILFRIDO KING Nov 26, 2024 16:28 SHANTE STEELE MD Nov 28, 2024 11:24
[2024-11-26] MEDS: SACUBITRIL-VALSARTAN 24mg/26mg TAB PO SCH (22:22)
[2024-11-27 01:00] VITALS: BP 119/86; PULSE 99; RESP 14; TEMP 99.4; O2SAT 97
[2024-11-27 05:00] VITALS: BP 124/91; PULSE 98; RESP 16; TEMP 97.9; O2SAT 92
[2024-11-27 08:00] VITALS: PULSE 106; PULSE 99; RESP 15; O2SAT 93
[2024-11-27 08:51] LABS: Anion Gap 10 (5-15); BUN/Creatinine Ratio 18.7 (10.0-20.0); Blood Urea Nitrogen 17 mg/dL (9-23); Calcium 9.3 mg/dL (8.7-10.4); Total Protein 6.2 g/dL (5.7-8.2)
[2024-11-27 08:54] LABS: Chloride 106 mmol/L (98-107); Potassium 3.8 mmol/L (3.5-5.1); Sodium 142 mmol/L (136-145)
[2024-11-27 08:55] LABS: Alanine Aminotransferase 64 U/L (7-40); Alkaline Phosphatase 137 U/L (46-116); Aspartate Aminotransferase 85 U/L (13-40); Carbon Dioxide 26 mmol/L (20-31); Glucose 135 mg/dL (74-106)
[2024-11-27 09:00] VITALS: BP 144/104; PULSE 99; RESP 15; TEMP 97.9; O2SAT 93
[2024-11-27] MEDS: SPIRONOLACTONE 25 MG TAB PO SCH (10:03)
[2024-11-27] MEDS: EMPAGLIFLOZIN 10 MG TAB PO SCH (10:03)
[2024-11-27 13:00] VITALS: BP 131/87; PULSE 91; RESP 18; TEMP 97.5; O2SAT 93
[2024-11-27] MEDS ORDERED: SACU1TAB PO (13:57)
[2024-11-27] MEDS ORDERED: CARV-214 PO (13:57)
[2024-11-27] MEDS ORDERED: EMPA1TAB PO (13:57)
[2024-11-27] MEDS ORDERED: ASPI-325 PO (13:57)
[2024-11-27] MEDS ORDERED: ACET-1882 PO (13:57)
[2024-11-27] MEDS ORDERED: SPIR25TA PO (13:57)
--- NOTE | 2024-11-27 14:02 | DVHDSRES ---
Discharge Summary Date of Admission Resident Creating Document: WILFRIDO KING RESIDENT Nov 25, 2024 at 20:30 Date of Discharge: Nov 27, 2024 Admitting Diagnosis shortness of breath Labs/Diagnostic Data: PATIENT: ANISA COMER ACCT: [id number] UNIT: [id number] : 1965 LOC: ER ROOM / BED: / AGE / SEX: 59 / M ADM STATUS: REG ER SERVICE 1630 ORDERING PHYSICIAN: WYATT TORIBIO MD PROCEDURE(s): CXRP - CHEST PORTABLE REASON: sob ORDER NUMBER(s): [id number], ACCESSION NUMBER(s): [id number] EXAM: XY CHEST PORTABLE HISTORY: sob COMPARISON: None FINDINGS: LINES AND TUBES: None. CARDIOMEDIASTINAL: The heart is enlarged. The pulmonary vasculature is prominent. Atherosclerotic calcification of the aortic arch noted. PULMONARY: Mild interstitial opacities with Steven B-lines noted in the periphery of the lower lung zones. Blunting of the bilateral costophrenic angles. There is no pneumothorax. BONES/SOFT TISSUES: No acute abnormality is noted. IMPRESSION: 1. Moderate cardiomegaly, pulmonary venous congestion , small bilateral pleural effusions and suggestion of interstitial edema. Correlate clinically. ATED BY: MIRYAM SERRA MD DICTATED DATE/TIME: 11/25/24 1856 Laboratory Results Test 11/27/24 08:16 11/26/24 10:10 11/26/24 05:52 11/25/24 18:06 Sodium Level 142 mmol/L (136-145) Potassium Level 3.8 mmol/L (3.5-5.1) Chloride Level 106 mmol/L (98-107) Carbon Dioxide Level 26 mmol/L (20-31) Anion Gap 10 (5-15) Blood Urea Nitrogen 17 mg/dL (9-23) Creatinine 0.91 mg/dL (0.700-1.30) Glomerular Filtration Rate Calc 98 mL/min (>90) BUN/Creatinine Ratio 18.7 (10.0-20.0) Serum Glucose 135 mg/dL (74-106) Calcium Level 9.3 mg/dL (8.7-10.4) Total Bilirubin 2.0 mg/dL (0.2-1.0) Aspartate Amino Transferase (AST) 85 U/L (13-40) Alanine Aminotransferase (ALT) 64 U/L (7-40) Alkaline Phosphatase 137 U/L (46-116) Total Protein 6.2 g/dL (5.7-8.2) Albumin 4.0 g/dL (3.2-4.8) Influenza Type A Antigen Negative (Negative) Influenza Type B Antigen Negative (Negative) SARS-CoV-2 Antigen (Rapid) Negative (NEGATIVE) White Blood Count 7.1 10^3/uL (4.4-10.8) Red Blood Count 4.18 10^6/uL (4.5-5.90) Hemoglobin 13.0 g/dL (13.5-17.5) Hematocrit 39.2 % (41.0-53.0) Mean Corpuscular Volume 93.8 fL (80.0-100.0) Mean Corpuscular Hemoglobin 31.0 pg (28.0-32.0) Mean Corpuscular Hemoglobin Concent 33.0 g/dL (32.0-36.0) Red Cell Distribution Width 15.6 % (11.8-14.3) Platelet Count 242 10^3/uL (140-450) Mean Platelet Volume 8.9 fL (6.9-10.8) Neutrophils (%) (Auto) 66.5 % (37.0-80.0) Lymphocytes (%) (Auto) 24.5 % (10.0-50.0) Monocytes (%) (Auto) 7.7 % (0.0-12.0) Eosinophils (%) (Auto) 0.9 % (0.0-7.0) Basophils (%) (Auto) 0.4 % (0.0-2.0) Neutrophils # (Auto) 4.7 10 ^3/uL (1.6-8.6) Lymphocytes # (Auto) 1.7 10 ^3/uL (0.4-5.4) Monocytes # (Auto) 0.5 10 ^3/uL (0-1.3) Eosinophils # (Auto) 0.1 10 ^3/uL (0-0.8) Basophils # (Auto) 0 10 ^3/uL (0-0.2) Nucleated Red Blood Cells 0.1 % Troponin I High Sensitivity 46 ng/L (</=54) Test 11/25/24 17:02 11/25/24 16:48 B-Type Natriuretic Peptide 764.11 pg/mL (0-100) Urine Color Yellow (Yellow) Urine Clarity Clear (Clear) Urine pH 6.0 (5.0-9.0) Urine Specific [place] 1.028 (1.001-1.035) Urine Protein 2+ (Negative) Urine Ketones Negative (Negative) Urine Blood Negative /uL (Negative) Urine Nitrite Negative (Negative) Urine Bilirubin Negative (Negative) Urine Urobilinogen 3 mg/dL (Negative) Urine Leukocyte Esterase Negative /uL (Negative) Urine RBC <1 /hpf (0 - 3) Urine Microscopic WBC 1 /HPF (0-3) Urine Squamous Epithelial Cells None seen /hpf (<5) Urine Bacteria None seen /hpf (None Seen) Urine Mucus Few (None Seen) Urine Glucose Normal mg/dL (Normal) Other Laboratory Tests 11/27/24 08:16 11/26/24 05:52 Brief Hx & Hospital Course: H&P This 59-year-old male with past medical history of CHF and 50 pack- years presented to [facility] ED with complaint of shortness of breaths. Patient reported that his symptoms progressively became worse with nonproductive cough, phlegm, fever, chills, chest pain, nausea, vomiting, bilateral worsening lower extremity.of note, patient was seen here in October 13, 2024 with similar symptoms. An echo done revealed an ejection fraction of 20% and patient was started on furosemide and carvedilol. At that time patient refused any ischemic workup. In the ED, laboratory data showed WBC 5.4, platelets 233, sodium 144, potassium 4.1, BUN 13, creatinine 0.88, GFR 100, glucose 115, troponin 46, BNP 764.11, blood pressure 125/91, heart rate 106, temperature 98.5 F, O2 saturation 95% on oxygen. Chest x-ray revealing moderate cardiomegaly, pulmonary vascular congestion, small bilateral pleural effusions and suggestion of interstitial edema. Patient was started on IV Lasix, Hospital course: Patient continued on lasix and GDMT started by cardiology. He was able to walk to the cafeteria and back without experiencing shortness of breath which he could not do before. He feels better, eating regular diet and cardiology again offer him the opportunity for an ischemic workout , but still patient declined. He replied that he feels better and there are people at home waiting for him. Patient seemed to be noncompliant with his medication. Overall, he is doing well. bilateral pitting edema is improve and shortness of breath is improved as well. Patient extensively counselled to limiting his salt intake, reducing the amount of luxembourger fries and admonished to adhere to his medications and follow up with the drilling manager. EXAMINATION General Appearance: Alert, Oriented X3, Cooperative, No acute distress HEENT: Atraumatic, PERRLA, EOMI, Mucous membrane moist/pink Respiratory: Clear to auscultation, Normal air movement Cardiovascular: Regular rate, Normal S1, Normal S2, No murmurs, no chest wall tenderness Abdominal: NO distention, no tenderness, bowel sounds present, no scars noted Extremities pitting edema RESOLVED Skin: No rashes, No breakdown, No significant lesion Neuro: Normal gait, Normal speech, Strength at 5/5 X4 ext, Normal tone, Sensation intact, Cranial nerves 3-12 NL, Reflexes 2+ Psych/Mental Status: Mental status NL, Mood NL Diagnoses Acute on chronic decompensated HFrEF, Echo 20% Acute hypoxic respiratory failure Hypertensive urgency Moderate cardiomegaly pulmonary edema 50 pack- years smoking history Transaminitis Discharge Plan Continue GDMT as patient can tolerate Continue furosemide 40 mg daily BP control Strict intake and output, daily weights, maintain fluid restriction Risk factor modifications and medication adherence educated follow up at the cardiology clinic for ischemic work Follow up at the D/C in 7 days Outpatient pulmonology visit given the long smoking history Report to the ED if you feel worse Discharge plan discussed with Dr. Bedoya Consults/Reason for consult CHF exacerbation Condition at Discharge: Good Final Diagnosis/Problems List Acute on chronic decompensated HFrEF, Echo 20% Acute hypoxic respiratory failure Hypertensive urgency Moderate cardiomegaly pulmonary edema Transaminitis 50 pack- years smoking history Discharge Disposition: Home Discharge Instruct/Medications Diet: Cardiac 2g Na,low cholest Diet comment: limit salt intake limit luxembourger fries DASH diet Activity: No Restrictions, As Tolerated Follow Up/Referral: 7 days at the discharge clinic 1-2 follow up at the cardiology clinic Medications: GDMT: ENTRESTO, SPIRONOLACTONE, CARVEDILOL, Jardiance FUROSEMIDE Discharge Statement: "Patient was advised to return to the ER or call 911 if any headaches, dizziness, shortness of breath, chest pain, abdominal pain, bleeding, fevers, or worsening of medical condition. Patient was counseled about treatment plan, medications, possible side effects, patientverbalized understanding. All questions were answered to the best of my ability. This discharge took greater then 30 minutes in planning, reviewing documentation, counseling the patient, and discussing with other team members." ASSESSMENT ASSESSMENT Assessment Acute on chronic decompensated HFrEF, Echo 20% Hypertensive urgency Moderate cardiomegaly pulmonary edema 50 pack- years smoking history noncompliant Date of Service: Nov 27, 2024 Billing Provider: SHANTE BEDOYA MD Common Visit Codes: [id number]-CMJ/OBS DISCH DAY >30min WILFRIDO KING RESIDENT Nov 27, 2024 14:02 SHANTE BEDOYA MD Nov 28, 2024 11:28
[2024-11-27 15:07] VITALS: BP 140/98; PULSE 98; RESP 16; TEMP 98; O2SAT 94
== END 2024-11-27 15:35 | disposition home or self-care (01) | DRG 194 ==
LOC: ER 16:19 → TELE 20:30 → TELE-WESTW 23:08
PROVIDERS: ADMIT Internal Medicine; ATTEND Internal Medicine
DX: I11.0 Hypertensive heart disease with heart failure (principal); I21.A1 Myocardial infarction type 2; J81.1 Chronic pulmonary edema; I16.0 Hypertensive urgency; I50.23 Acute on chronic systolic (congestive) heart failure; F17.210 Nicotine dependence, cigarettes, uncomplicated; Z20.822 Contact with and (suspected) exposure to COVID-19; R74.01 Elevation of levels of liver transaminase levels; Z91.199 Patient's noncompliance with other medical treatment and regimen due to unspecified reason; Z91.148 Patient's other noncompliance with medication regimen for other reason; Z87.442 Personal history of urinary calculi; Z95.810 Presence of automatic (implantable) cardiac defibrillator; Z79.899 Other long term (current) drug therapy
CPT/HCPCS: 36415; 71045; 80048; 80053; 81001; 83880; 84484; 85025; 87426; 87804; 93005; 99291; G0378

== ENCOUNTER 2025-01-26 12:20 | Emergency (ER) | payer MEDICAID ==
[~2025-01-26] VITALS: Ht 180.3 cm; Wt 69.3 kg
[~2025-01-26 12:20] MED LIST changes: +ACET-1882 PO; +ASPI-325 PO; -AZIT-74 PO; +EMPA1TAB PO; -ERGO1CAP23 PO; -HYDR-4072 PO; +HYDR1TAB97 PO; +SPIR25TA PO
--- NOTE | 2025-01-26 12:52 | ED.PDOC ---
SOB-HPI HPI Comments 59y M who presents to the ED for chief complaint of shortness of breath. Pt states he has been having shortness of breath for the past 1 week getting progressively worse. Pt states he has been having associated fever for the past 1 week with noted nausea and vomiting for the past 2 days. Pt otherwise denies diarrhea, fever, cough, chills, dysuria, chest pain, dizziness, or headache. Pt denies any recent sick contacts or changes to diet. Pt otherwise denies any other symptoms at this time. Chief Complaint: Shortness of Breath Time Seen by MD: 12:48 Reviewed notes: Medications, Allergies Information Source: Patient Mode of Arrival: Ambulatory Brought in by: self Severity: Moderate Timing: Days Duration: Since onset Context: At Rest, With Light Exertion PE Risk Factors: None History of: CHF Prehospital treatment: None Modifying Factors: Exertion Associated Signs and Symptoms: Fever Past Medical History PAST MEDICAL HISTORY: Denies Surgical History: Denies all surgeries Family History Family History: Unknown Social History Smoker: Cigarettes Alcohol: Occasionally Drugs: Denies Drug Use Lives In: Home Constitutional: reports: fever; denies: chills, diaphoresis, fatigue, malaise, sweats, weakness, others EENTM: denies: blurred vision, double vision, ear bleeding, ear discharge, ear drainage, ear pain, ear ringing, eye pain, eye redness, hearing loss, mouth pain, mouth swelling, nasal discharge, nose bleeding, nose congestion, nose pain, photophobia, tearing, throat pain, throat swelling, voice changes, others Respiratory: reports: shortness of breath; denies: cough, hemoptysis, orthopnea, SOB at rest, SOB with excertion, stridor, wheezing, others Cardiovascular: denies: chest pain, dizzy spells, diaphoresis, Dyspnea on exer tion, edema, irregular heart beat, left arm pain, lightheadedness, palpitations, PND, syncope, others Gastrointestinal: reports: nausea, vomiting; denies: abdomen distended, abdominal pain, blood streaked bowels, constipated, diarrhea, dysphagia, difficulty swallowing, hematemesis, melena, poor appetite, poor fluid intake, rectal bleeding, rectal pain, others Genitourinary: denies: burning, dysuria, flank pain, frequency, hematuria, incontinence, penile discharge, penile sore, pain, testicle pain, testicle swelling, urgency, others Neurological: denies: dizziness, fainting, headache, left sided numbness, left sided weakness, numbness, paresthesia, pre-existing deficit, right sided numbness, right sided weakness, seizure, speech problems, tingling, tremors, weakness, others Musculoskeletal: denies: back pain, gout, joint pain, joint swelling, muscle pain, muscle stiffness, neck pain, others Integumetry: denies: bruises, change in color, change in hair/nails, dryness, laceration, lesions, lumps, rash, wounds, others Allergic/Immunocompromised: denies: Difficulty Healing, Frequent Infections, Hives, Itching, others Hematologic/Lymphatic: denies: anemia, blood clots, easy bleeding, easy bruising, swollen glands, others Endocrine: denies: excessive hunger, excessive sweating, excessive thirst, excessive urination, flushing, intolerance to cold, intolerance to heat, unexplained weight gain, unexplained weight loss, others Psychiatric: denies: anxiety, bipolar disorder, depression, hopeless, panic disorder, schizophrenia, sleepless, suicidal, others All Other Systems: Reviewed and Negative Physical Exam General Appearance: No Apparent Distress HEENT: Normal ENT Inspection, Pharynx Normal, TMs Normal Neck: Full Range of Motion, Non-Tender, Normal, Normal Inspection Respiratory: Chest Non-Tender, Lungs Clear, No Accessory Muscle Use, No Respiratory Distress, Normal Breath Sounds Cardiovascular: No Edema, No JVD, No Murmur, No Gallop, Normal Peripheral Pulses, Regular Rate/Rhythm Breast Exam: Deferred Gastrointestinal: No Organomegaly, Non Tender, No Pulsatile Mass, Normal Bowel Sounds, Soft Genitalia: Deferred Pelvic: Deferred Rectal: Deferred Extremities: No calf tenderness, Normal capillary refill, Normal inspection, Normal range of motion, Non-tender, No pedal edema Musculoskeletal : Apperance: Normal Neurologic: Alert, ms sql dba II-XII nml as Tested, No Motor Deficits, Normal Affect, Normal Mood, No Sensory Deficits Cerebellar Function: Normal Reflexes: Normal Skin: Dry, Normal Color, Warm Lymphatic: No Adenopathy EKG EKG : Pulse Rate (adult): 85 [place]: Normal Cardiac Rhythm: NSR Block: None Hypertrophy: LAE, LVH ST: Normal Was a procedure done? Was a procedure done?: No Differential Dx Differential Diagnosis: Bronchitis, CHF, COPD, Pneumonia, Pulmonary Embolism, Respiratory Distress, URI Comments Influenza A and B, COVID X-Ray, Labs, Meds, VS Vital Signs Date Time Temp Pulse Resp B/P (MAP) Pulse Ox O2 Delivery O2 Flow Rate FiO2 01/26/25 13:37 98.3 97 18 123/76 (92) 98 98.3 01/26/25 13:37 97 18 98 Room Air 01/26/25 12:52 85 01/26/25 12:35 18 99 Room Air* 0 21 01/26/25 12:35 98.1 99 18 108/77 (87) 99 98.1 01/26/25 12:28 85 XY CHEST TWO VIEWS ROUTINE IMPRESSION: No acute cardiopulmonary disease. The patient was being given Zithromax The patient will follow up with the primary care doctor The patient will return to the emergency department's condition worsens The patient was diagnosis acute bronchitis Images Reviewed?: Images reviewed and evaluated by me Time of 1ST Reevaluation: 13:20 Reevaluation 1ST: Unchanged Patient Education/Counseling: Diagnosis, Treatment, Prognosis, Need For Follow Up Family Education/Counseling: No Family Present Departure 1 Departure Time of Disposition: 14:13 Impression: Primary Impression: Acute bronchitis Qualified Codes: J20.9 - Acute bronchitis, unspecified Disposition: 01 HOME / SELF CARE / HOMELESS Condition: Fair e-Prescriptions Azithromycin (Zithromax) 500 Mg Tab 1 TAB PO DAILY, #5 TAB Prov: MADDI NAGY MD 01/26/25 Discharged With: Self Critical Care Note Critical Care Time?: No Stability Stability form required: No Heart Score Heart Score: Heart Score Response (Comments) Value History Slightly Suspicious 0 EKG Repolarization Disturb 1 Age 45-64 1 Risk Factors 1 or 2 risk factors 1 Troponin Normal limit 0 Total 3 I personally scribed for MADDI NAGY MD ([email or web address]) on 01/26/25 at 12:52. Electronically submitted by Surekha García ([email or web address]). I personally scribed for MADDI NAGY MD ([email or web address]) on 01/26/25 at 13:16. Electronically submitted by Surekha García ([email or web address]). MADDI NAGY MD Jan 26, 2025 12:52
--- NOTE | 2025-01-26 13:07 | DVH ---
XY CHEST TWO VIEWS ROUTINE CLINICAL HISTORY: sob/cough COMPARISON: XY CHEST TWO VIEWS ROUTINE on DOS: 10/19/24 TECHNIQUE: Frontal and lateral view of the chest was obtained FINDINGS: Lines and Tubes: None Lungs: No focal consolidation. Pleura: No effusion. No pneumothorax. Cardiomediastinal contours: Unremarkable Bones: No acute osseous abnormality. IMPRESSION: No acute cardiopulmonary disease.
[2025-01-26 13:37] VITALS: BP 123/76; PULSE 97; RESP 18; TEMP 98.3; O2SAT 98
[2025-01-26] MEDS ORDERED: AZIT500T PO (14:14)
--- NOTE | 2025-01-28 06:14 | ECG ---
[facility] Test Date: 2025-01-26 Test Time: 12:28:33 Pat Name: ANISA COMER Department: ER Room: Gender: M Load Planner: GEORGIE : 1965 Requested By: MADDI NAGY Order Number: [id number] Reading MD: Kevyn Finnegan Measurements Intervals [place] Rate: 85 P: 67 WY: 133 QRS: 71 QRSD: 89 T: -56 QT: 423 QTc: 503 Interpretive Statements Sinus rhythm Atrial premature complex Probable left atrial enlargement Left ventricular hypertrophy Anterior Q waves, possibly due to LVH Nonspecific T abnormalities, inferior leads Prolonged QT interval Electronically Signed On 01-28-2025 14:19:27 PDT by Kevyn Finnegan Please click the below link to view image of tracing.
== END 2025-01-26 14:31 | disposition home or self-care (01) ==
LOC: ER 12:22
DX: J20.9 Acute bronchitis, unspecified (principal); R11.2 Nausea with vomiting, unspecified; F17.210 Nicotine dependence, cigarettes, uncomplicated
CPT/HCPCS: 71046; 93005

== ENCOUNTER 2025-04-08 08:08 | Inpatient (IN) | payer MEDICAID ==
[~2025-04-08] VITALS: Ht 180.3 cm; Wt 67.0 kg
[~2025-04-08 08:08] MED LIST changes: +AZIT500T PO
--- NOTE | 2025-04-08 08:18 | ECG ---
[facility] Test Date: 2025-04-08 Test Time: 08:17:57 Pat Name: ANISA COMER Department: ER Room: [address] [place] [address] Gender: M Pharmacy Operations Specialist: ANUEL : 1965 Requested By: WYATT TORIBIO Order Number: [id number] Reading MD: Kevyn Finnegan Measurements Intervals [place] Rate: 101 P: 71 ND: 152 QRS: -9 QRSD: 81 T: -73 QT: 379 QTc: 492 Interpretive Statements Sinus tachycardia Probable left atrial enlargement Anteroseptal infarct, old Borderline T abnormalities, inferior leads Electronically Signed On 04-08-2025 17:32:52 PDT by Kevyn Finnegan Please click the below link to view image of tracing.
--- NOTE | 2025-04-08 08:24 | ED.PDOC ---
History of Present Illness HPI Comments 59 y/o M, with PMHx of HTN and CHF presents to the ED for CC of generalized weakness. Patient states, he has been experiencing generalized weakness with associated symptoms of shortness of breath, orthopnea and poor appetite x4days. Patient relays, that his legs have swollen up since, commencement of symptoms. Patient denies chest pain, cough, fever, chills, or sick contacts. No other symptoms or modifying factors present at this time. Chief Complaint: General Weakness Time Seen by MD: 08:20 Primary Care Provider: DILAN Reviewed Notes: Nurses Notes, Medications, Allergies Allergies: Coded Allergies: Morphine (Verified Allergy, Unknown, 01/26/25) Home Meds Active Scripts Azithromycin (Zithromax) 500 Mg Tab, 1 TAB PO DAILY, #5 TAB Prov:MADDI NAGY MD 01/26/25 Spironolactone (Aldactone) 25 Mg Tab, 25 MG PO DAILY for 30 Days, #30 TAB Prov:WILFRIDO KING 11/27/24 Sacubitril-Valsartan (Entresto 24-26 mg) 1 Tab Tab, 1 TAB PO BID for 30 Days, #60 TAB Prov:WILFRIDO KING 11/27/24 Empagliflozin (Jardiance) 10 Mg Tab, 10 MG PO DAILY for 30 Days, #30 TAB Prov:WILFRIDO KING 11/27/24 Carvedilol (COREG) 3.125 Mg Tab, 3.125 MG PO Q12HR for 30 Days, #60 TAB Prov:WILFRIDO KING 11/27/24 Aspirin (Aspirin Low Dose) 81 Mg Tab, 81 MG PO DAILY for 30 Days, #30 TAB Prov:WILFRIDO KING 11/27/24 Acetaminophen (Acetaminophen) 325 Mg Tab, 650 MG PO Q6HP PRN for 30 Days, #240 TAB Prov:WILFRIDO IKNG 11/27/24 Potassium Chloride (Potassium Chloride ER) 20 Meq Tab, 20 MEQ PO QAM for 30 Days, #30 TAB Prov:JIN GUNN MD 10/21/24 Furosemide (Furosemide) 40 Mg Tab, 1 TAB PO DAILY, #30 TAB 0 Refills Prov:JIN GUNN MD 10/21/24 Carvedilol (COREG) 3.125 Mg Tab, 3.125 MG PO BID for 30 Days, #60 TAB Prov:JIN GUNN MD 10/21/24 Reported Medications Hydrocodone-Acetaminophen (Hydrocodone/Acetaminophen 5-325 mg) 1 Tab Tab, 1 TAB PO TID, TAB 11/25/24 Mode of Arrival: Ambulatory Severity: Moderate Timing: Days Duration: Since onset Prehospital treatment: None Past Medical History PAST MEDICAL HISTORY: CHF, HTN Surgical History: Denies all surgeries Family History Family History: Unknown Social History Smoker: Cigarettes Alcohol: Occasionally Drugs: Denies Drug Use Lives In: Home Constitutional: reports: weakness; denies: chills, diaphoresis, fatigue, fever, malaise, sweats, others EENTM: denies: blurred vision, double vision, ear bleeding, ear discharge, ear drainage, ear pain, ear ringing, eye pain, eye redness, hearing loss, mouth pain, mouth swelling, nasal discharge, nose bleeding, nose congestion, nose pain, photophobia, tearing, throat pain, throat swelling, voice changes, others Respiratory: reports: shortness of breath; denies: cough, hemoptysis, orthopnea, SOB at rest, SOB with excertion, stridor, wheezing, others Cardiovascular: denies: chest pain, dizzy spells, diaphoresis, Dyspnea on exertion, edema, irregular heart beat, left arm pain, lightheadedness, palpitations, PND, syncope, others Gastrointestinal: reports: poor appetite; denies: abdomen distended, abdominal pain, blood streaked bowels, constipated, diarrhea, dysphagia, difficulty swallowing, hematemesis, melena, nausea, poor fluid intake, rectal bleeding, rectal pain, vomiting, others Genitourinary: denies: burning, dysuria, flank pain, frequency, hematuria, incontinence, penile discharge, penile sore, pain, testicle pain, testicle swelling, urgency, others Neurological: denies: dizziness, fainting, headache, left sided numbness, left sided weakness, numbness, paresthesia, pre-existing deficit, right sided numbness, right sided weakness, seizure, speech problems, tingling, tremors, weakness, others Musculoskeletal: denies: back pain, gout, joint pain, joint swelling, muscle pain, muscle stiffness, neck pain, others Integumetry: denies: bruises, change in color, change in hair/nails, dryness, laceration, lesions, lumps, rash, wounds, others Allergic/Immunocompromised: denies: Difficulty Healing, Frequent Infections, Hives, Itching, others Hematologic/Lymphatic: denies: anemia, blood clots, easy bleeding, easy brui sing, swollen glands, others Endocrine: denies: excessive hunger, excessive sweating, excessive thirst, ex cessive urination, flushing, intolerance to cold, intolerance to heat, unexplained weight gain, unexplained weight loss, others Psychiatric: denies: anxiety, bipolar disorder, depression, hopeless, panic disorder, schizophrenia, sleepless, suicidal, others All Other Systems: Reviewed and Negative Physical Exam General Appearance: No Apparent Distress, Normal HEENT: Normal ENT Inspection, Pharynx Normal Neck: Full Range of Motion, Non-Tender, Normal, Normal Inspection Respiratory: Chest Non-Tender, Lungs Clear, No Accessory Muscle Use, No Respiratory Distress, Normal Breath Sounds Cardiovascular: No Edema, No Murmur, No Gallop, Normal Peripheral Pulses, Regular Rate/Rhythm Breast Exam: Deferred Gastrointestinal: No Organomegaly, Non Tender, No Pulsatile Mass, Normal Bowel Sounds, Soft Genitalia: Deferred Pelvic: Deferred Rectal: Deferred Extremities: No calf tenderness, Normal capillary refill, Normal inspection, Normal range of motion, Non-tender, Pedal edema (3+) Musculoskeletal : Apperance: Normal Neurologic: Alert, quantometer operator II-XII nml as Tested, No Motor Deficits, Normal Affect, Normal Mood, No Sensory Deficits Cerebellar Function: Normal Reflexes: Normal Skin: Dry, Normal Color, Warm Lymphatic: No Adenopathy Was a procedure done? Was a procedure done?: No Differential Dx Considerations may include: CHF, VIRAL, URI, SINUITIS, ELECTROLYTE IMBALANCE, DEHYDRATION X-Ray, Labs, Meds, VS Vital Signs Date Time Temp Pulse Resp B/P (MAP) Pulse Ox O2 Delivery O2 Flow Rate FiO2 04/08/25 08:43 101 17 99 Room Air 04/08/25 08:43 98.9 101 17 101/75 (84) 99 98.9 04/08/25 08:17 101 04/08/25 08:15 Room Air* 0 21 04/08/25 08:15 97.2 107 17 90/69 (76) 100 97.2 Lab Test 04/08/25 09:27 04/08/25 08:24 Range/Units Troponin I High Sensitivity Pending 45 </=54 ng/L White Blood Count 7.1 4.4-10.8 10^3/uL Red Blood Count 4.38 L 4.5-5.90 10^6/uL Hemoglobin 14.6 13.5-17.5 g/dL Hematocrit 44.1 41.0-53.0 % Mean Corpuscular Volume 100.7 H 80.0-100.0 fL Mean Corpuscular Hemoglobin 33.4 H 28.0-32.0 pg Mean Corpuscular Hemoglobin Concent 33.2 32.0-36.0 g/dL Red Cell Distribution Width 16.8 H 11.8-14.3 % Platelet Count 147 140-450 10^3/uL Mean Platelet Volume 9.3 6.9-10.8 fL Neutrophils (%) (Auto) 75.8 37.0-80.0 % Lymphocytes (%) (Auto) 15.9 10.0-50.0 % Monocytes (%) (Auto) 7.5 0.0-12.0 % Eosinophils (%) (Auto) 0.2 0.0-7.0 % Basophils (%) (Auto) 0.6 0.0-2.0 % Neutrophils # (Auto) 5.4 1.6-8.6 10 ^3/uL Lymphocytes # (Auto) 1.1 0.4-5.4 10 ^3/uL Monocytes # (Auto) 0.5 0-1.3 10 ^3/uL Eosinophils # (Auto) 0 0-0.8 10 ^3/uL Basophils # (Auto) 0 0-0.2 10 ^3/uL Nucleated Red Blood Cells 0.1 % Sodium Level 137 136-145 mmol/L Potassium Level 4.3 3.5-5.1 mmol/L Chloride Level 101 98-107 mmol/L Carbon Dioxide Level 21 20-31 mmol/L Anion Gap 15 5-15 Blood Urea Nitrogen 18 9-23 mg/dL Creatinine 1.26 0.700-1.30 mg/dL Glomerular Filtration Rate Calc 66 >90 mL/min BUN/Creatinine Ratio 14.3 10.0-20.0 Serum Glucose 176 H 74-106 mg/dL Calcium Level 8.6 L 8.7-10.4 mg/dL B-Type Natriuretic Peptide 1740.31 0-100 pg/mL [facility] [address] [facility] [address] Ph: [phone] DIAGNOSTIC IMAGING Diagnostic Imaging Report : [id number] Signed PATIENT: ANISA COMER ACCT: [id number] UNIT: [id number] : 1965 LOC: ER ROOM / BED: / AGE / SEX: 59 / M ADM STATUS: REG ER SERVICE 4 ORDERING PHYSICIAN: WYATT TORIBIO MD PROCEDURE(s): CXRP - CHEST PORTABLE REASON: sob ORDER NUMBER(s): [id number], ACCESSION NUMBER(s): [id number] XY CHEST PORTABLE, HISTORY: sob COMPARISON: XY CHEST PORTABLE on DOS: 11/25/24 XY CHEST PORTABLE on DOS: 11/25/24 TECHNICAL DATA: 1 view of the chest was obtained. FINDINGS: Lines and tubes: None Cardiomediastinal silhouette: normal Pulmonary vasculature: normal Lung expansion: normal Lung airspace: normal Lung interstitium: normal Pleura: normal Pneumothorax: no Bones: Unremarkable Other: no IMPRESSION: No acute intrathoracic abnormality. ATED BY: CHOLO MORROW MD DICTATED DATE/TIME: 04/08/25854 SIGNED BY: CHOLO MORROW MD SIGNED DATE/TIME: 04/08/25854 CC: Time of 1ST Reevaluation: 08:50 Reevaluation 1ST: Unchanged Patient Education/Counseling: Diagnosis, Treatment, Prognosis Family Education/Counseling: No Family Present Comments clinically pt has chf. his cxr is unremarkable however, his BP ius low, so it would be necessary to monitor him while diuretics are given and to look for other reasons for the hypotension. pt will need to be admitted for hypotension, chf. if his EF were significantly depressed, this may cause his symptoms. he will need an ECHO Additional Information Previous visits reviewed: 01/26/25 DX:ACUTE BRONCHITIS, 10/25/24 DX: ACUTE ON CHRONIC SYSTOLIC HEART, 10/19/24 DX:SOB The following tests were ordered, and results were reviewed by me: I reviewed and agreed with the following test results read by other providers: None I discussed treatment and results with medical personnel and: patient Comprehensive systems review obtained and negative except for what is stated in the HPI. Departure 1 Departure Time of Disposition: 09:56 Impression: Primary Impression: CHF (congestive heart failure) Qualified Codes: I50.21 - Acute systolic (congestive) heart failure Additional Impressions: Hypotension Qualified Codes: I95.9 - Hypotension, unspecified Acute systolic heart failure Disposition: ADMITTED INPATIENT Admit to: Tele Condition: Serious Discharged With: Self Critical Care Note Critical Care Time?: Yes (45 min-critical care time only) Critical care comment: Due to concerns for patients condition deteriorating, the care required my highest level of attention and readiness to intervene. I assessed the patient, reviewed the medical records, ordered the appropriate tests and treatments, then reassessed for results and responsiveness. I communicated with medical personnel and consultants and formulated a plan of care. Total critical care time excludes any procedures Stability Stability form required: No Heart Score Heart Score: Heart Score Response (Comments) Value History N/A 0 EKG N/A 0 Age N/A 0 Risk Factors N/A 0 Troponin N/A 0 Total 0 I personally scribed for WYATT TORIBIO MD ([email or web address]) on 04/08/25 at 08:24. Elec tronically submitted by Emely Lane ([email or web address]). I personally scribed for WYATT TORIBIO MD ([email or web address]) on 04/08/25 at 08:34. Electronically submitted by Emely Lane ([email or web address]). I personally scribed for WYATT TORIBIO MD ([email or web address]) on 04/08/25 at 09:05. Electronically submitted by Emely Lane ([email or web address]). WYATT TORIBIO MD Apr 08, 2025 08:24
[2025-04-08 08:36] LABS: Basophils # (auto) 0 10 ^3/uL (0-0.2); Basophils % (auto) 0.6 % (0.0-2.0); Eosinophils # (auto) 0 10 ^3/uL (0-0.8); Eosinophils % (auto) 0.2 % (0.0-7.0); Hematocrit 44.1 % (41.0-53.0); Hemoglobin 14.6 g/dL (13.5-17.5); Lymphocytes # (auto) 1.1 10 ^3/uL (0.4-5.4); Lymphocytes % (auto) 15.9 % (10.0-50.0); Mean Corpuscular Hemoglobin 33.4 pg (28.0-32.0); Mean Corpuscular Hgb Conc. 33.2 g/dL (32.0-36.0); Mean Corpuscular Volume 100.7 fL (80.0-100.0); Monocytes # (auto) 0.5 10 ^3/uL (0-1.3); Monocytes % (auto) 7.5 % (0.0-12.0); Neutrophils # (auto) 5.4 10 ^3/uL (1.6-8.6); Neutrophils % (auto) 75.8 % (37.0-80.0); Nucleated Red Blood Cells % 0.1 %; Platelet Count (auto) 147 10^3/uL (140-450); Red Blood Cells 4.38 10^6/uL (4.5-5.90); Red Cell Distribution Width 16.8 % (11.8-14.3); White Blood Cell 7.1 10^3/uL (4.4-10.8)
[2025-04-08 08:44] LABS: Chloride 101 mmol/L (98-107); Potassium 4.3 mmol/L (3.5-5.1); Sodium 137 mmol/L (136-145)
[2025-04-08 08:45] LABS: Anion Gap 15 (5-15); Carbon Dioxide 21 mmol/L (20-31)
[2025-04-08 08:50] LABS: BUN/Creatinine Ratio 14.3 (10.0-20.0); Blood Urea Nitrogen 18 mg/dL (9-23)
--- NOTE | 2025-04-08 08:57 | DVH ---
XY CHEST PORTABLE, HISTORY: sob COMPARISON: XY CHEST PORTABLE on DOS: 11/25/24 XY CHEST PORTABLE on DOS: 11/25/24 TECHNICAL DATA: 1 view of the chest was obtained. FINDINGS: Lines and tubes: None Cardiomediastinal silhouette: normal Pulmonary vasculature: normal Lung expansion: normal Lung airspace: normal Lung interstitium: normal Pleura: normal Pneumothorax: no Bones: Unremarkable Other: no IMPRESSION: No acute intrathoracic abnormality.
[2025-04-08 09:13] LABS: Calcium 8.6 mg/dL (8.7-10.4); Glucose 176 mg/dL (74-106)
--- NOTE | 2025-04-08 11:35 | DVHHP2 ---
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 When evaluating patient's labs CBC was unremarkable BNP was 1740.31, trop x2 negative, chest x-ray unremarkable. Recently patient's chart patient had an echocardiogram December 12, 2019 EF was 20 25%. Patient states he drinks beer daily, last drink was last night denies drug or smoking. With these findings we will admit patient ask for Cardiology evaluation. Patient is currently hypotensive can be from the fact he took his blood pressure medication last night but for now we will need to hold Jardiance Coreg spironolactone and Lasix until blood pressure improve. Past Medical History See HPI above Past Surgical History See HPI above Family History Reviewed, non-contributory to the management of this case. Past Social History The patient lives at home, denies smoking, or illicit drugs abuse. does drink beer daily Review of Systems Constitutional: No: Fever, Chills, Sweats, Weakness, Malaise, Other Eyes: No: Pain, Vision change, Conjunctivae inflammation, Eyelid inflammation, Other, Redness ENT: No: Ear pain, Ear discharge, Nose pain, Nose discharge, Nose congestion, Mouth pain, Mouth swelling, Throat pain, Throat swelling, Other Respiratory: Shortness of breath, SOB with excertion; No: Cough, Dry, Wheezing, Hemoptysis, Pleuritic Pain, Sputum, Wheezing, Other Cardiovascular: Edema; No: Chest Pain, Palpitations, Orthopnea, Paroxysmal Noc. Dyspnea, Lt Headedness, Other Gastrointestinal: No: Nausea, Vomiting, Abdominal Pain, Diarrhea, Constipation, Melena, Hematochezia, Other Genitourinary: No Dysuria, No Frequency, No Incontinence, No Hematuria, No Retention, No Other Musculoskeletal: No: other, neck pain, shoulder pain, arm pain, back pain, hand pain, leg pain, foot pain Skin: No: Rash, Lesions, Jaundice, Bruising, Other Neurological: Weakness; No: Numbness, Incoordination, Change in speech, Confusion, Seizures, Other Allergies: Coded Allergies: Morphine (Verified Allergy, Unknown, 01/26/25) Exam Vital Signs Vital Signs Date Time Temp Pulse Resp B/P (MAP) Pulse Ox O2 Delivery O2 Flow Rate FiO2 04/08/25 08:43 101 17 99 Room Air 04/08/25 08:43 98.9 101/75 (84) 98.9 04/08/25 08:15 0 21 General Appearance: Alert, Oriented X3, Cooperative, No acute distress HEENT: Atraumatic, PERRLA, EOMI, Mucous membr. moist/pink Respiratory: Other (Diminished lung sounds throughout) Cardiovascular: Regular rate, Normal S1, Normal S2, No murmurs Abdominal: Normal bowel sounds, Soft, No tenderness, No hepatospenomegaly, No masses Extremities: No clubbing, No cyanosis, Normal pulses, No tenderness/swelling, Other (Bilateral lower extremity edema) Skin: No rashes, No breakdown, No significant lesion Neuro: Normal speech, Strength at 5/5 X4 ext, Normal tone, Sensation intact, Cranial nerves 3-12 NL Psych/Mental Status: Mental status NL, Mood NL Labs/Xrays Labs Test 04/08/25 09:27 04/08/25 08:24 Range/Units Troponin I High Sensitivity 39 </=54 ng/L White Blood Count 7.1 4.4-10.8 10^3/uL Red Blood Count 4.38 L 4.5-5.90 10^6/uL Hemoglobin 14.6 13.5-17.5 g/dL Hematocrit 44.1 41.0-53.0 % Mean Corpuscular Volume 100.7 H 80.0-100.0 fL Mean Corpuscular Hemoglobin 33.4 H 28.0-32.0 pg Mean Corpuscular Hemoglobin Concent 33.2 32.0-36.0 g/dL Red Cell Distribution Width 16.8 H 11.8-14.3 % Platelet Count 147 140-450 10^3/uL Mean Platelet Volume 9.3 6.9-10.8 fL Neutrophils (%) (Auto) 75.8 37.0-80.0 % Lymphocytes (%) (Auto) 15.9 10.0-50.0 % Monocytes (%) (Auto) 7.5 0.0-12.0 % Eosinophils (%) (Auto) 0.2 0.0-7.0 % Basophils (%) (Auto) 0.6 0.0-2.0 % Neutrophils # (Auto) 5.4 1.6-8.6 10 ^3/uL Lymphocytes # (Auto) 1.1 0.4-5.4 10 ^3/uL Monocytes # (Auto) 0.5 0-1.3 10 ^3/uL Eosinophils # (Auto) 0 0-0.8 10 ^3/uL Basophils # (Auto) 0 0-0.2 10 ^3/uL Nucleated Red Blood Cells 0.1 % Sodium Level 137 136-145 mmol/L Potassium Level 4.3 3.5-5.1 mmol/L Chloride Level 101 98-107 mmol/L Carbon Dioxide Level 21 20-31 mmol/L Anion Gap 15 5-15 Blood Urea Nitrogen 18 9-23 mg/dL Creatinine 1.26 0.700-1.30 mg/dL Glomerular Filtration Rate Calc 66 >90 mL/min BUN/Creatinine Ratio 14.3 10.0-20.0 Serum Glucose 176 H 74-106 mg/dL Calcium Level 8.6 L 8.7-10.4 mg/dL B-Type Natriuretic Peptide 1740.31 0-100 pg/mL Assessment/Plan Assessment/Plan Acute on chronic diastolic systolic heart failure NYHA class III cxr normal Patient had echo performed 12/08/24 ef 20-25% need to hold lasix, coreg, entresto and spirolactone since pt with hypotension ordered atorvastatin, asa strict i/o's bnp >1740 consider bipap if worsening resp distress ordered cards consult fu results restrict sodium daily wt acute hypotension bp low will need to hold medication will need to provide gentle lasix if continued hypotension will need to consider levophed acute ble edema likely from chf ordered us fu results elevate to help with swelling pt to be given lasix once bp improves acute etoh last drink tomorrow monitor for withdrawal chronic problems chf htn fen/ppx diet hl scd no gi ppx since no hx of gerds or gi bleed plan admit to tele cards consult Plan discussed with: Patient Date of Service: Apr 08, 2025 Billing Provider: DARYL WEST DNP Common Visit Codes: 21543-[facility] INP/OBS CARE (HIGH) DARYL WEST DNP Apr 08, 2025 11:35
[2025-04-08] MEDS ORDERED: NITROGLYCERIN 0.4 MG SL TAB SL PRN (12:30)
[2025-04-08] MEDS: ENOXAPARIN SOD 40 MG/0.4 ML SYRINGE SC SCH (12:30)
--- NOTE | 2025-04-08 13:13 | DVH ---
Procedure: US BiLat Lower DVT Study Date and Requested Time: 04/08/2025 12:46 PM History: eval for dvt ble edema Comparison: None Technique: Multiple high resolution calloway-scale images with and without compression obtained of the bi lateral lower extremity veins, including the common femoral vein, deep femoral vein, proximal mid and distal superficial femoral vein, and popliteal vein. Additional limited images of the greater saphen ous vein also obtained. Augmentation performed as indicated. Color and spectral doppler flow images o btained as indicated. Findings: No visible intraluminal venous thrombus. No evidence of incompressibility or abnormal color or spectr al Doppler flow visualized in the bilateral lower extremity veins including, the common femoral vein, deep femoral vein, proximal mid and distal superficial femoral vein, and popliteal vein. Greater sap henous vein grossly unremarkable. Impression: No sonographic evidence of bilateral lower extremity deep venous thrombosis.
--- NOTE | 2025-04-08 14:00 | DVHINCON2 ---
Date Seen: Apr 08, 2025 Referring Physician Zachary Reason for Consultation CHF History of Present Illness 59-year-old male with PMH for CHF, HTN, kidney stones, tobacco use, EtOH, cardiomyopathy (EF 20-25%) presented to the hospital with worsening shortness of breath and increased bilateral lower extremity pain in the edema. Patient endorses medication compliance though continued to notice worsening edema. Patient denies chest pain, palpitations, diaphoresis, nausea, vomiting. Upon evaluation in the ER patient noted to have troponins trending 45, 39, 34. BNP 1740. CXR negative for acute congestion/edema. Ultrasound bilateral lower extremity done, negative for DVT. EKG reviewed and shows sinus tachycardia at 101 beats per minute, nonspecific T- wave abnormality. Past Medical History As stated above. Past Surgical History As stated above. Family History: Patient reports no known family medical history. Family History Denies pertinent family cardiac history Social History Denies alcohol or illicit drug use. Continues to use occasional alcohol ( beers ). Allergies: Coded Allergies: Morphine (Verified Allergy, Unknown, 01/26/25) Home Meds Active Scripts Azithromycin (Zithromax) 500 Mg Tab, 1 TAB PO DAILY, #5 TAB Prov:MADDI NAGY MD 01/26/25 Spironolactone (Aldactone) 25 Mg Tab, 25 MG PO DAILY for 30 Days, #30 TAB Prov:WILFRIDO KING 11/27/24 Sacubitril-Valsartan (Entresto 24-26 mg) 1 Tab Tab, 1 TAB PO BID for 30 Days, #60 TAB Prov:WILFRIDO KING 11/27/24 Empagliflozin (Jardiance) 10 Mg Tab, 10 MG PO DAILY for 30 Days, #30 TAB Prov:WILFRIDO KING 11/27/24 Carvedilol (COREG) 3.125 Mg Tab, 3.125 MG PO Q12HR for 30 Days, #60 TAB Prov:WILFRIDO KING 11/27/24 Aspirin (Aspirin Low Dose) 81 Mg Tab, 81 MG PO DAILY for 30 Days, #30 TAB Prov:WILFRIDO KING 11/27/24 Acetaminophen (Acetaminophen) 325 Mg Tab, 650 MG PO Q6HP PRN for 30 Days, #240 TAB Prov:WILFRIDO KING 11/27/24 Potassium Chloride (Potassium Chloride ER) 20 Meq Tab, 20 MEQ PO QAM for 30 Days, #30 TAB Prov:JIN GUNN MD 10/21/24 Furosemide (Furosemide) 40 Mg Tab, 1 TAB PO DAILY, #30 TAB 0 Refills Prov:JIN GUNN MD 10/21/24 Carvedilol (COREG) 3.125 Mg Tab, 3.125 MG PO BID for 30 Days, #60 TAB Prov:JIN GUNN MD 10/21/24 Reported Medications Hydrocodone-Acetaminophen (Hydrocodone/Acetaminophen 5-325 mg) 1 Tab Tab, 1 TAB PO TID, TAB 11/25/24 Current Medications Current Medications Medications (Trade) Dose Ordered Sig/Marifer Route PRN Reason Start Time Stop Time Status Last Admin Acetaminophen/ Hydrocodone Bitart ([place] 5/325MG Tab) 1 tab Q4HPRN PRN PO PAIN SCALE 1 THRU 6 04/08/25 12:15 Atorvastatin Calcium (Lipitor) 40 mg HS PO 04/08/25 22:00 Enoxaparin Sodium (Lovenox) 40 mg DAILY SC 04/08/25 12:30 Nitroglycerin (Ntrostat Sublingual) 0.4 mg Q5MINP PRN SL FOR CHEST PAIN 04/08/25 12:30 Review of Systems Constitutional: No: Fever, Chills, Sweats, Weakness, Malaise, Other Eyes: No: Pain, Vision change, Conjunctivae inflammation, Eyelid inflammation, Other, Redness ENT: No: Ear pain, Ear discharge, Nose pain, Nose discharge, Nose congestion, Mouth pain, Mouth swelling, Throat pain, Throat swelling, Other Respiratory: No: Cough, Dry, Wheezing, Hemoptysis, Pleuritic Pain, Sputum, Wheezing, Other positive: Shortness of breath, SOB with exertion, Cardiovascular: ; No: Chest Pain Palpitations, Orthopnea, Paroxysmal Noc. Dyspnea, Lt Headedness, Other positive: Edema, Gastrointestinal: No: Nausea, Vomiting, Abdominal Pain, Diarrhea, Constipation, Melena, Hematochezia, Other Genitourinary: No Dysuria, No Frequency, No Incontinence, No Hematuria, No Retention, No Other Musculoskeletal: neck pain; No: other, shoulder pain, arm pain, back pain, hand pain, leg pain, foot pain Skin: No: Rash, Lesions, Jaundice, Bruising, Other Neurological: Other (Dizziness, headache.); No: Weakness, Numbness, Incoordination, Change in speech, Confusion, Seizures Vital Signs Vital Signs Date Time Temp Pulse Resp B/P (MAP) Pulse Ox O2 Delivery O2 Flow Rate FiO2 04/08/25 12:24 94 18 101/79 (86) 96 04/08/25 08:43 Room Air 04/08/25 08:43 98.9 98.9 04/08/25 08:15 0 21 Physical Exam General appearance: Patient is well-developed, well-nourished, in no acute distress. HEENT: Exam shows: Normocephalic, atraumatic, PERRLA, EOMI Neck: Supple, no bruits Chest: Equal chest excursion bilaterally. Breath sounds diminished.. Heart: Rhythm: Regular rate; no murmur or gallop Abdomen: Exam shows: Soft, nontender, nondistended Musculoskeletal: No clubbing, no cyanosis, +1-2 lower extremity edema Dermatology: Skin warm, moist. Neurological: Exam shows: Alert and oriented x4, normal speech Available prior records, labs, EKG, rhythm strips reviewed and interpreted Labs/Diagnostic Data Labs Test 04/08/25 11:24 04/08/25 08:24 Range/Units Troponin I High Sensitivity 34 </=54 ng/L White Blood Count 7.1 4.4-10.8 10^3/uL Red Blood Count 4.38 L 4.5-5.90 10^6/uL Hemoglobin 14.6 13.5-17.5 g/dL Hematocrit 44.1 41.0-53.0 % Mean Corpuscular Volume 100.7 H 80.0-100.0 fL Mean Corpuscular Hemoglobin 33.4 H 28.0-32.0 pg Mean Corpuscular Hemoglobin Concent 33.2 32.0-36.0 g/dL Red Cell Distribution Width 16.8 H 11.8-14.3 % Platelet Count 147 140-450 10^3/uL Mean Platelet Volume 9.3 6.9-10.8 fL Neutrophils (%) (Auto) 75.8 37.0-80.0 % Lymphocytes (%) (Auto) 15.9 10.0-50.0 % Monocytes (%) (Auto) 7.5 0.0-12.0 % Eosinophils (%) (Auto) 0.2 0.0-7.0 % Basophils (%) (Auto) 0.6 0.0-2.0 % Neutrophils # (Auto) 5.4 1.6-8.6 10 ^3/uL Lymphocytes # (Auto) 1.1 0.4-5.4 10 ^3/uL Monocytes # (Auto) 0.5 0-1.3 10 ^3/uL Eosinophils # (Auto) 0 0-0.8 10 ^3/uL Basophils # (Auto) 0 0-0.2 10 ^3/uL Nucleated Red Blood Cells 0.1 % Sodium Level 137 136-145 mmol/L Potassium Level 4.3 3.5-5.1 mmol/L Chloride Level 101 98-107 mmol/L Carbon Dioxide Level 21 20-31 mmol/L Anion Gap 15 5-15 Blood Urea Nitrogen 18 9-23 mg/dL Creatinine 1.26 0.700-1.30 mg/dL Glomerular Filtration Rate Calc 66 >90 mL/min BUN/Creatinine Ratio 14.3 10.0-20.0 Serum Glucose 176 H 74-106 mg/dL Calcium Level 8.6 L 8.7-10.4 mg/dL Magnesium Level 2.1 1.6-2.6 mg/dL B-Type Natriuretic Peptide 1740.31 0-100 pg/mL Thyroid Stimulating Hormone (TSH) 4.77 0.55-4.78 uIU/mL Assessment * Acute on chronic HFrEF - diuresis with Lasix 20 mg IV b.i.d.. Monitor strict I&Os. Check echo. * Cardiomyopathy - GDMT held in setting of marginal BP. Restart once BP stable. * ETOH - advised against * HX HTN, marginal BP - hold home meds for now, continue trending. BP marginal. Monitor with diuresis. Case Discussed with Dr Finnegan. Continue diuresis as BP tolerates. Hold GDMT for now as BP marginal. Patient with history of continued CHF exacerbation, not wanting no ischemic workup in the past. Patient continues not to want any type of invasive ischemic workup. Continue medical management at this time. Follow up echo. Critical care, time spent: 42 minutes This medical document was created using an electronic medical record system with voice recognition software and computerized dictation system. Although this document has been carefully reviewed, there might still be some phonetic and typographical errors. Occasional wrong-word or ``sound-alike substitutions may have occurred due to the inherent limitations of voice recognition software. These areas are purely typographical due to imperfections of the software programs and do not reflect any compromise in the patient's medical care. Please read the chart carefully and recognize, using context, where these substitutions have occurred. Thank you for allowing me to participate in the management of this patient. The treatment plan was discussed with and agreed upon by patient/family including requesting consultants and ordering of imaging/procedures. Plan discussed with: Patient NYHA Physical activity limitations: Class3(Marked) ordinary Date of Service: Apr 08, 2025 Billing Provider: CHARLENE APARICIO Cardiology Common Codes: [id number] INP/OBS CARE (High), [id number] CARE 30-74 MIN CHARLENE APARICIO Apr 08, 2025 14:00
[2025-04-08] MEDS: HYDROcodone-ACET 5/325MG TAB PO PRN (17:44)
[2025-04-08 19:07] VITALS: BP 110/87; PULSE 106; PULSE 107; RESP 16; TEMP 97.5; O2SAT 99
[2025-04-08 19:08] VITALS: PULSE 105; RESP 18; O2SAT 99
[2025-04-08 20:00] VITALS: PULSE 106; PULSE 107; RESP 16; O2SAT 99
[2025-04-08] MEDS: FUROSEMIDE 20 MG/2 ML VIAL IV SCH (20:16)
[2025-04-08 21:00] VITALS: BP 110/87; PULSE 107; RESP 15; TEMP 97.5; O2SAT 99
[2025-04-08] MEDS: MELATONIN 5 MG TAB PO ONE (21:22)
[2025-04-08] MEDS: ATORVASTATIN 20 MG TAB PO SCH (21:23)
[2025-04-09] VITALS (8 sets, daily range): BP systolic 80–109; BP diastolic 61–87; PULSE 81–106; RESP 16–20; TEMP 96.9–98; O2SAT 94–100
[2025-04-09 08:33] LABS: Urine Amorphous Crystal FEW /hpf (None Seen); Urine Bacteria FEW /hpf (None Seen); Urine Blood Negative /uL (Negative); Urine Clarity Turbid (Clear); Urine Color Yellow (Yellow); Urine Hyaline Cast MANY /lpf (0 - 2); Urine Mucus FEW (None Seen); Urine Protein, UAD 2+ (Negative); Urine Specific Gravity 1.017 (1.001-1.035); Urine Squamous Epithelial Cell FEW /hpf (<5); Urine Urobilinogen 6 mg/dL (Negative); Urine WBC 2 /HPF (0-3); Urine pH 5.5 (5.0-9.0)
[2025-04-09] MEDS: SPIRONOLACTONE 25 MG TAB PO SCH (08:54)
--- NOTE | 2025-04-09 10:30 | DVHPN2 ---
Progress Note Date Seen: Apr 09, 2025 Medical Necessity Reason Pt with a Central, PICC or Fol: No Subjective Patient reports: No new complaints Review of Systems: HEENT:Normal, CVS:Normal, RESPIRATORY:Normal, GI:Normal, :Normal, MSK:Normal, NEURO:Normal Objective vital signs Vital Sign Date Time Temp Pulse Resp B/P (MAP) Pulse Ox O2 Delivery O2 Flow Rate FiO2 04/09/25 08:30 96.9 106 20 109/87 (94) 95 96.9 04/09/25 08:00 Room Air* 0 21 Total Intake and Output 04/08/25 04/08/25 04/09/25 15:00 23:00 07:00 Intake Total 880 ml Output Total 1200 ml Balance -320 ml medications Current Medications Medications Dose Ordered Sig/Marifer Route Start Time Stop Time Status Last Admin Dose Admin Acetaminophen/ Hydrocodone Bitart 1 tab Q4HPRN PRN PO 04/08/25 12:15 04/09/25 08:55 1 TAB Atorvastatin Calcium 40 mg HS PO 04/08/25 22:00 04/08/25 21:23 40 MG Enoxaparin Sodium 40 mg DAILY SC 04/08/25 12:30 04/09/25 08:54 40 MG Nitroglycerin 0.4 mg Q5MINP PRN SL 04/08/25 12:30 Furosemide 20 mg BIDD IV 04/08/25 18:00 04/09/25 05:35 20 MG Spironolactone 25 mg DAILY PO 04/09/25 10:00 04/09/25 08:54 25 MG Examination: GENERAL:Normal, HEENT:Normal, NECK:Normal, LUNGS:Normal, CVS:Normal, ABDOMEN:Normal, MSK:Normal, MSK:Abnormal (edema++), SKIN:Normal, NEURO:Normal, :Normal laboratory and microbiology Laboratory Tests 04/08/25 08:24 Test 04/08/25 08:24 Range/Units Serum Glucose 176 H 74-106 mg/dL Problem List/Assessment/Plan Problem List/Assessment/Plan #1 acute on chronic systolic heart failure: cont meds #2 tobacco abuse: advised to quit, time spent 11 mins advance care planning- full code- time spent 18 mins Plan discussed with: Patient Date of Service: Apr 09, 2025 Billing Provider: AMANDA ROWE MD Common Visit Codes: [id number] INP/OBS CARE(HIGH) Secondary Visit Codes: [id number] CHNG SMOKING >10MIN, [id number] CARE PLAN 30 MINUTES AMANDA ROWE MD Apr 09, 2025 10:30
[2025-04-09 11:00] LABS: Opiate Scree,Urine Pos (NEGATIVE); Phencyclidine Screen, Urine Pos (NEGATIVE)
[2025-04-09 11:10] LABS: Amphetamine Screen, Urine Neg (NEGATIVE); Barbiturate Scree,Urine Neg (NEGATIVE); Benzodiazephine Screen, Urine Neg (NEGATIVE); Cannabinoid Screen, Urine Neg (NEGATIVE); Cocaine Screen, Urine Neg (NEGATIVE)
[2025-04-09] MEDS: CARVEDILOL 3.125 MG TAB PO SCH (21:01)
[2025-04-09] MEDS: SACUBITRIL-VALSARTAN 24mg/26mg TAB PO SCH (21:02)
[2025-04-09] MEDS: MELATONIN 5 MG TAB PO SCH (21:52)
[2025-04-10] VITALS (9 sets, daily range): BP systolic 85–134; BP diastolic 56–84; PULSE 64–106; RESP 16–20; TEMP 97.3–98.2; O2SAT 95–100
[2025-04-10 06:19] LABS: Basophils # (auto) 0 10 ^3/uL (0-0.2); Basophils % (auto) 0.3 % (0.0-2.0); Eosinophils # (auto) 0 10 ^3/uL (0-0.8); Eosinophils % (auto) 0.1 % (0.0-7.0); Hematocrit 41.3 % (41.0-53.0); Hemoglobin 13.7 g/dL (13.5-17.5); Lymphocytes # (auto) 1.4 10 ^3/uL (0.4-5.4); Lymphocytes % (auto) 18.5 % (10.0-50.0); Mean Corpuscular Hemoglobin 33.6 pg (28.0-32.0); Mean Corpuscular Hgb Conc. 33.3 g/dL (32.0-36.0); Mean Corpuscular Volume 100.8 fL (80.0-100.0); Monocytes # (auto) 0.8 10 ^3/uL (0-1.3); Monocytes % (auto) 10.6 % (0.0-12.0); Neutrophils # (auto) 5.5 10 ^3/uL (1.6-8.6); Neutrophils % (auto) 70.5 % (37.0-80.0); Nucleated Red Blood Cells % 0.3 %; Platelet Count (auto) 144 10^3/uL (140-450); Red Blood Cells 4.09 10^6/uL (4.5-5.90); White Blood Cell 7.8 10^3/uL (4.4-10.8)
[2025-04-10] MEDS: EMPAGLIFLOZIN 10 MG TAB PO SCH (09:01)
--- NOTE | 2025-04-10 10:09 | DVHPN2 ---
Progress Note Date Seen: Apr 10, 2025 Medical Necessity Reason Pt with a Central, PICC or Fol: No Subjective Patient reports: No new complaints Review of Systems: HEENT:Normal, CVS:Normal, RESPIRATORY:Normal, GI:Normal, :Normal, MSK:Normal, NEURO:Normal Objective vital signs Vital Sign Date Time Temp Pulse Resp B/P (MAP) Pulse Ox O2 Delivery O2 Flow Rate FiO2 04/10/25 09:03 98 102/63 04/10/25 09:00 97.4 18 100 97.4 04/09/25 20:00 Room Air* 0 21 Total Intake and Output 04/09/25 04/09/25 04/10/25 15:00 23:00 07:00 Intake Total 600 ml 800 ml Output Total 325 ml Balance 600 ml 475 ml medications Current Medications Medications Dose Ordered Sig/Marifer Route Start Time Stop Time Status Last Admin Dose Admin Acetaminophen/ Hydrocodone Bitart 1 tab Q4HPRN PRN PO 04/08/25 12:15 04/10/25 09:02 1 TAB Atorvastatin Calcium 40 mg HS PO 04/08/25 22:00 04/09/25 20:46 40 MG Enoxaparin Sodium 40 mg DAILY SC 04/08/25 12:30 04/10/25 09:02 40 MG Nitroglycerin 0.4 mg Q5MINP PRN SL 04/08/25 12:30 Furosemide 20 mg BIDD IV 04/08/25 18:00 04/10/25 06:39 20 MG Spironolactone 25 mg DAILY PO 04/09/25 10:00 04/09/25 08:54 25 MG Carvedilol 3.125 mg Q12HR PO 04/09/25 22:00 Empaglifozin 10 mg DAILY PO 04/10/25 10:00 04/10/25 09:01 10 MG Sacubitril/ Valsartan 0.5 tab BID PO 04/09/25 22:00 Melatonin 10 mg HS PO 04/09/25 21:30 04/09/25 21:52 10 MG Examination: GENERAL:Normal, HEENT:Normal, NECK:Normal, LUNGS:Normal, CVS:Normal, ABDOMEN:Normal, MSK:Normal, MSK:Abnormal (edema+), SKIN:Normal, NEURO:Normal, :Normal laboratory and microbiology Laboratory Tests 04/10/25 04:53 04/08/25 08:24 Test 04/08/25 08:24 Range/Units Serum Glucose 176 H 74-106 mg/dL Problem List/Assessment/Plan Problem List/Assessment/Plan #1 acute on chronic systolic heart failure: cont meds #2 tobacco abuse: advised to quit, time spent 11 mins advance care planning- full code- time spent 18 mins Plan discussed with: Patient My Orders My Orders Orders - AMANDA ROWE MD Procedure Category Date Status Time Carvedilol Tablet PHA 04/09/25 In Process (Coreg Tablet) 22:00 Empagliflozin PHA 04/10/25 In Process (Jardiance) 10:00 Sacubitril-Valsartan PHA 04/09/25 In Process (Entresto 24-26 Mg 22:00 Date of Service: Apr 10, 2025 Billing Provider: AMANDA ROWE MD Common Visit Codes: [id number] INP/OBS CARE(HIGH) AMANDA ROWE MD Apr 10, 2025 10:09
[2025-04-10] MEDS: metOLazone 5 MG TAB PO ONE (15:22)
[2025-04-11] VITALS (8 sets, daily range): BP systolic 80–101; BP diastolic 57–73; PULSE 85–103; RESP 15–20; TEMP 97–98.6; O2SAT 94–100
--- NOTE | 2025-04-11 10:31 | DVHPN2 ---
Progress Note Date Seen: Apr 11, 2025 Medical Necessity Reason Pt with a Central, PICC or Fol: No Subjective Patient reports: No new complaints Review of Systems: HEENT:Normal, CVS:Normal, RESPIRATORY:Normal, GI:Normal, :Normal, MSK:Normal, NEURO:Normal Objective vital signs Vital Sign Date Time Temp Pulse Resp B/P (MAP) Pulse Ox O2 Delivery O2 Flow Rate FiO2 04/11/25 08:48 93 88/65 04/11/25 05:00 18 99 04/11/25 01:00 97.0 97.0 04/10/25 20:00 Room Air* 0 21 Total Intake and Output 04/10/25 04/10/25 04/11/25 15:00 23:00 07:00 Intake Total 300 ml 320 ml Output Total 200 ml 750 ml Balance 100 ml -430 ml medications Current Medications Medications Dose Ordered Sig/Marifer Route Start Time Stop Time Status Last Admin Dose Admin Acetaminophen/ Hydrocodone Bitart 1 tab Q4HPRN PRN PO 04/08/25 12:15 04/10/25 21:30 1 TAB Atorvastatin Calcium 40 mg HS PO 04/08/25 22:00 04/10/25 21:23 40 MG Enoxaparin Sodium 40 mg DAILY SC 04/08/25 12:30 04/11/25 08:50 40 MG Nitroglycerin 0.4 mg Q5MINP PRN SL 04/08/25 12:30 Furosemide 20 mg BIDD IV 04/08/25 18:00 04/10/25 06:39 20 MG Spironolactone 25 mg DAILY PO 04/09/25 10:00 04/09/25 08:54 25 MG Carvedilol 3.125 mg Q12HR PO 04/09/25 22:00 Empaglifozin 10 mg DAILY PO 04/10/25 10:00 04/11/25 08:51 10 MG Sacubitril/ Valsartan 0.5 tab BID PO 04/09/25 22:00 04/10/25 11:53 0.5 TAB Melatonin 10 mg HS PO 04/09/25 21:30 04/10/25 21:23 10 MG Examination: GENERAL:Normal, HEENT:Normal, NECK:Normal, LUNGS:Normal, CVS:Normal, ABDOMEN:Normal, MSK:Normal, MSK:Abnormal (EDEMA++), SKIN:Normal, NEURO:Normal, :Normal laboratory and microbiology Laboratory Tests 04/10/25 04:53 04/08/25 08:24 Test 04/08/25 08:24 Range/Units Serum Glucose 176 H 74-106 mg/dL Problem List/Assessment/Plan Problem List/Assessment/Plan #1 acute on chronic systolic heart failure: cont meds #2 tobacco abuse: advised to quit, time spent 11 mins advance care planning- full code- time spent 18 mins Plan discussed with: Patient Date of Service: Apr 11, 2025 Billing Provider: AMANDA ROWE MD Common Visit Codes: [id number] INP/OBS CARE(HIGH) AMANDA ROWE MD Apr 11, 2025 10:31
[2025-04-11] MEDS: FUROSEMIDE 20 MG/2 ML VIAL IV ONE (11:04)
[2025-04-12 01:00] VITALS: BP 86/52; PULSE 86; RESP 18; TEMP 97.9; O2SAT 99
[2025-04-12 05:00] VITALS: BP 83/59; PULSE 72; RESP 18; TEMP 97.7; O2SAT 99
[2025-04-12 06:56] VITALS: PULSE 97
[2025-04-12 07:46] LABS: Chloride 103 mmol/L (98-107); Sodium 140 mmol/L (136-145)
[2025-04-12 07:47] LABS: Anion Gap 10 (5-15); Carbon Dioxide 27 mmol/L (20-31)
[2025-04-12 07:52] LABS: Blood Urea Nitrogen 21 mg/dL (9-23); Glucose 79 mg/dL (74-106); Magnesium 2.2 mg/dL (1.6-2.6)
[2025-04-12 07:53] LABS: Calcium 8.3 mg/dL (8.7-10.4)
[2025-04-12 08:30] VITALS: PULSE 75; RESP 20; O2SAT 93
[2025-04-12 09:00] VITALS: BP 91/65; PULSE 75; RESP 20; TEMP 98.1; O2SAT 99
[2025-04-12] MEDS ORDERED: CARV-214 PO (10:47)
[2025-04-12] MEDS ORDERED: FURO1TAB31 PO (10:47)
[2025-04-12] MEDS ORDERED: SPIR25TA PO (10:47)
--- NOTE | 2025-04-12 10:48 | DVHDS2 ---
Discharge Summary Date of Admission Apr 08, 2025 at 12:28 Date of Discharge: Apr 12, 2025 Labs/Diagnostic Data: Laboratory Results Test 04/12/25 06:28 04/10/25 04:53 04/09/25 08:07 04/08/25 11:24 Sodium Level 140 mmol/L (136-145) Potassium Level 4.0 mmol/L (3.5-5.1) Chloride Level 103 mmol/L (98-107) Carbon Dioxide Level 27 mmol/L (20-31) Anion Gap 10 (5-15) Blood Urea Nitrogen 21 mg/dL (9-23) Creatinine 0.84 mg/dL (0.700-1.30) Glomerular Filtration Rate Calc 101 mL/min (>90) BUN/Creatinine Ratio 25.0 (10.0-20.0) Serum Glucose 79 mg/dL (74-106) Calcium Level 8.3 mg/dL (8.7-10.4) Magnesium Level 2.2 mg/dL (1.6-2.6) White Blood Count 7.8 10^3/uL (4.4-10.8) Red Blood Count 4.09 10^6/uL (4.5-5.90) Hemoglobin 13.7 g/dL (13.5-17.5) Hematocrit 41.3 % (41.0-53.0) Mean Corpuscular Volume 100.8 fL (80.0-100.0) Mean Corpuscular Hemoglobin 33.6 pg (28.0-32.0) Mean Corpuscular Hemoglobin Concent 33.3 g/dL (32.0-36.0) Red Cell Distribution Width 16.0 % (11.8-14.3) Platelet Count 144 10^3/uL (140-450) Mean Platelet Volume 10.4 fL (6.9-10.8) Neutrophils (%) (Auto) 70.5 % (37.0-80.0) Lymphocytes (%) (Auto) 18.5 % (10.0-50.0) Monocytes (%) (Auto) 10.6 % (0.0-12.0) Eosinophils (%) (Auto) 0.1 % (0.0-7.0) Basophils (%) (Auto) 0.3 % (0.0-2.0) Neutrophils # (Auto) 5.5 10 ^3/uL (1.6-8.6) Lymphocytes # (Auto) 1.4 10 ^3/uL (0.4-5.4) Monocytes # (Auto) 0.8 10 ^3/uL (0-1.3) Eosinophils # (Auto) 0 10 ^3/uL (0-0.8) Basophils # (Auto) 0 10 ^3/uL (0-0.2) Nucleated Red Blood Cells 0.3 % Urine Color Yellow (Yellow) Urine Clarity Turbid (Clear) Urine pH 5.5 (5.0-9.0) Urine Specific [place] 1.017 (1.001-1.035) Urine Protein 2+ (Negative) Urine Ketones Negative (Negative) Urine Blood Negative /uL (Negative) Urine Nitrite Negative (Negative) Urine Bilirubin 1+ (Negative) Urine Urobilinogen 6 mg/dL (Negative) Urine Leukocyte Esterase Negative /uL (Negative) Urine RBC <1 /hpf (0 - 3) Urine Microscopic WBC 2 /HPF (0-3) Urine Squamous Epithelial Cells Few /hpf (<5) Urine Amorphous Crystals Few /hpf (None Seen) Urine Bacteria Few /hpf (None Seen) Urine Hyaline Casts Many /lpf (0 - 2) Urine Mucus Few (None Seen) Urine Glucose Normal mg/dL (Normal) Urine Opiates Screen Pos (NEGATIVE) Urine Fentanyl Screen Neg (NEGATIVE) Urine Barbiturates Screen Neg (NEGATIVE) Urine Phencyclidine Screen Pos (NEGATIVE) Urine Amphetamines Screen Neg (NEGATIVE) Urine Benzodiazepines Screen Neg (NEGATIVE) Urine Cocaine Screen Neg (NEGATIVE) Urine Cannabinoids Screen Neg (NEGATIVE) Troponin I High Sensitivity 34 ng/L (</=54) Test 04/08/25 08:24 B-Type Natriuretic Peptide 1740.31 pg/mL (0-100) Thyroid Stimulating Hormone (TSH) 4.77 uIU/mL (0.55-4.78) Other Laboratory Tests 04/12/25 06:28 04/10/25 04:53 Brief Hx & Hospital Course: see dictated note Condition at Discharge: Fair Final Diagnosis/Problems List chf Discharge Disposition: Home Discharge Instruct/Medications Diet: Cardiac 2g Na,low cholest Diet comment: fluid restriction to 1200 cc/day Activity: No Restrictions, As Tolerated Follow Up/Referral: fu with pcp in 1 wk Medications: resume home meds script to pharmacy Discharge Statement: "Patient was advised to return to the ER or call 911 if any headaches, dizziness, shortness of breath, chest pain, abdominal pain, bleeding, fevers, or worsening of medical condition. Patient was counseled about treatment plan, medications, possible side effects, patientverbalized understanding. All questions were answered to the best of my ability. This discharge took greater then 30 minutes in planning, reviewing documentation, counseling the patient, and discussing with other team members." ASSESSMENT ASSESSMENT Assessment chf Date of Service: Apr 12, 2025 Billing Provider: AMANDA ROWE MD Common Visit Codes: [id number] DISCH DAY >30min AMANDA ROWE MD Apr 12, 2025 10:48
--- NOTE | 2025-04-12 11:01 | DVHDS ---
DATE OF DISCHARGE: 04/12/2025 HISTORY OF PRESENT ILLNESS: The patient is a 59-year-old gentleman who was admitted with a history of weakness and shortness of breath and a history of hypertension and congestive heart failure. HOSPITAL COURSE: The patient had a chest x-ray that showed no acute infiltrate. The patient had pedal edema. Bilateral lower extremity Doppler was negative for DVT. The patient's BNP was 1700. The patient was diuresed with intravenous Lasix. His tox screen was positive for PCP. The patient is now feeling well and will be discharged home to resume his home medications and follow up with his primary in 1 week. FINAL DIAGNOSES: * [id number] systolic heart failure. * Questionable drug abuse with PCP. * Tobacco abuse. * Noncompliance. Time spent on discharge planning and review of plan with the patient and nursing was 38 minutes. MD JANUSZ Mix/MARIELY TID: [id number] RECEIPT: [id number]
[2025-04-12 11:21] VITALS: BP 92/43; PULSE 75; PULSE 97; RESP 20; TEMP 98.1; O2SAT 99
== END 2025-04-12 13:21 | disposition home or self-care (01) | DRG 194 ==
LOC: ER 08:08 → OVERFLOW 12:28 → TELE-CENTR 18:31
PROVIDERS: ADMIT Internal Medicine; ATTEND Internal Medicine
DX: I11.0 Hypertensive heart disease with heart failure (principal); I95.9 Hypotension, unspecified; I42.9 Cardiomyopathy, unspecified; I50.23 Acute on chronic systolic (congestive) heart failure; F16.10 Hallucinogen abuse, uncomplicated; F17.210 Nicotine dependence, cigarettes, uncomplicated; F10.129 Alcohol abuse with intoxication, unspecified; M79.605 Pain in left leg; M79.604 Pain in right leg; Z88.5 Allergy status to narcotic agent; Z91.199 Patient's noncompliance with other medical treatment and regimen due to unspecified reason; Z87.442 Personal history of urinary calculi
CPT/HCPCS: 36415; 71045; 80048; 80307; 81001; 83735; 83880; 84443; 84484; 85025; 93005; 93970; 96372; 96374; 99291; G0378

== ENCOUNTER 2025-09-17 10:07 | Inpatient (IN) | payer MEDICAID ==
[~2025-09-17] VITALS: Ht 180.3 cm; Wt 77.5 kg
[~2025-09-17 10:07] MED LIST changes: -AZIT500T PO; +FURO1TAB31 PO; -HYDR1TAB97 PO
--- NOTE | 2025-09-17 10:34 | ED.PDOC ---
SOB-HPI HPI Comments 60M presents to the ER w/ his father and w/ prior MHx of CKF, CHF at 10% and c/c of SOB. Pt reports on having had SOB for the past 2 months and seeing his PCP 1 month where he was prescribed medication for which are not working. Denies any symptoms at this time. Patient denies any CP, dizziness, numbness, weakness, tingling, fever, chills, or recent fall. Chief Complaint: Shortness of Breath Time Seen by MD: 10:30 Primary Care Provider: DILAN Reviewed notes: Nurses Notes, Medications, Allergies Information Source: Patient Mode of Arrival: Ambulatory Severity: Moderate Timing: Months Duration: Since onset Context: Spontaneous Onset PE Risk Factors: None History of: CHF Prehospital treatment: None Associated Signs and Symptoms: None If cough with SOB: Non-Productive Past Medical History PAST MEDICAL HISTORY: CHF (10%), CKF Surgical History: Denies all surgeries Family History Family History: Reviewed,noncontributory to illness, Unknown Social History Smoker: Cigarettes Alcohol: Occasionally Drugs: Denies Drug Use Lives In: Home Constitutional: denies: chills, diaphoresis, fatigue, fever, malaise, sweats, weakness, others EENTM: denies: blurred vision, double vision, ear bleeding, ear discharge, ear drainage, ear pain, ear ringing, eye pain, eye redness, hearing loss, mouth pain, mouth swelling, nasal discharge, nose bleeding, nose congestion, nose pain, photophobia, tearing, throat pain, throat swelling, voice changes, others Respiratory: reports: shortness of breath; denies: cough, hemoptysis, orthopnea, SOB at rest, SOB with excertion, stridor, wheezing, others Cardiovascular: denies: chest pain, dizzy spells, diaphoresis, Dyspnea on exertion, edema, irregular heart beat, left arm pain, lightheadedness, palpitations, PND, syncope, others Gastrointestinal: denies: abdomen distended, abdominal pain, blood streaked bowels, constipated, diarrhea, dysphagia, difficulty swallowing, hematemesis, melena, nausea, poor appetite, poor fluid intake, rectal bleeding, rectal pain, vomiting, others Genitourinary: denies: burning, dysuria, flank pain, frequency, hematuria, incontinence, penile discharge, penile sore, pain, testicle pain, testicle swelling, urgency, others Neurological: denies: dizziness, fainting, headache, left sided numbness, left sided weakness, numbness, paresthesia, pre-existing deficit, right sided numbness, right sided weakness, seizure, speech problems, tingling, tremors, weakness, others Musculoskeletal: denies: back pain, gout, joint pain, joint swelling, muscle pain, muscle stiffness, neck pain, others Integumetry: denies: bruises, change in color, change in hair/nails, dryness, laceration, lesions, lumps, rash, wounds, others Allergic/Immunocompromised: denies: Difficulty Healing, Frequent Infections, H nicolle, Itching, others Hematologic/Lymphatic: denies: anemia, blood clots, easy bleeding, easy bruising, swollen glands, others Endocrine: denies: excessive hunger, excessive sweating, excessive thirst, excessive urination, flushing, intolerance to cold, intolerance to heat, unexplained weight gain, unexplained weight loss, others Psychiatric: denies: anxiety, bipolar disorder, depression, hopeless, panic disorder, schizophrenia, sleepless, suicidal, others All Other Systems: Reviewed and Negative Physical Exam General Appearance: Moderate Distress, Normal HEENT: Normal ENT Inspection, PERRL/EOMI, Pharynx Normal, Scleral Icterus (L), Scleral Icterus (R), TMs Normal Neck: Full Range of Motion, Non-Tender, Normal, Normal Inspection Respiratory: Chest Non-Tender, Crackles, Expiration, Inspiration, No Accessory Muscle Use, No Respiratory Distress Cardiovascular: Irregular, No Edema, No JVD, No Murmur, No Gallop, Normal Peripheral Pulses, Regular Rate/Rhythm, Tachycardia Breast Exam: Deferred Gastrointestinal: No Organomegaly, Non Tender, No Pulsatile Mass, Normal Bowel Sounds, Soft Genitalia: Deferred Pelvic: Deferred Rectal: Deferred Extremities: No calf tenderness, Normal capillary refill, Normal inspection, Normal range of motion, Non-tender, No pedal edema Musculoskeletal : Apperance: Normal Neurologic: Alert, carpet measurer II-XII nml as Tested, No Motor Deficits, Normal Affect, Normal Mood, No Sensory Deficits Cerebellar Function: NOT DONE Reflexes: NOT DONE Skin: Dry, Normal Color, Warm Peripheral Pulses: 1+ carotid (R), 1+ carotid (L) Lymphatic: No Adenopathy Was a procedure done? Was a procedure done?: No Differential Dx Differential Diagnosis: CHF, COPD, Dysrhythmia, Hyponatremia, URI X-Ray, Labs, Meds, VS Vital Signs Date Time Temp Pulse Resp B/P (MAP) Pulse Ox O2 Delivery O2 Flow Rate FiO2 09/17/25 13:23 98.7 105 18 109/67 (81) 98 98.7 09/17/25 11:38 99.5 107 18 107/73 (84) 96 99.5 09/17/25 11:38 Room Air* 0 21 09/17/25 10:09 97.5 109 18 99/60 96 97.5 Lab Test 09/17/25 13:40 09/17/25 11:39 09/17/25 10:47 Range/Units Troponin I High Sensitivity 24 22 23 </=54 ng/L White Blood Count 5.9 4.4-10.8 10^3/uL Red Blood Count 4.63 4.5-5.90 10^6/uL Hemoglobin 13.6 13.5-17.5 g/dL Hematocrit 42.9 41.0-53.0 % Mean Corpuscular Volume 92.8 80.0-100.0 fL Mean Corpuscular Hemoglobin 29.5 28.0-32.0 pg Mean Corpuscular Hemoglobin Concent 31.8 L 32.0-36.0 g/dL Red Cell Distribution Width 16.4 H 11.8-14.3 % Platelet Count 236 140-450 10^3/uL Mean Platelet Volume 8.8 6.9-10.8 fL Neutrophils (%) (Auto) 71.3 37.0-80.0 % Lymphocytes (%) (Auto) 19.1 10.0-50.0 % Monocytes (%) (Auto) 6.8 0.0-12.0 % Eosinophils (%) (Auto) 2.4 0.0-7.0 % Basophils (%) (Auto) 0.4 0.0-2.0 % Neutrophils # (Auto) 4.2 1.6-8.6 10 ^3/uL Lymphocytes # (Auto) 1.1 0.4-5.4 10 ^3/uL Monocytes # (Auto) 0.4 0-1.3 10 ^3/uL Eosinophils # (Auto) 0.1 0-0.8 10 ^3/uL Basophils # (Auto) 0 0-0.2 10 ^3/uL Nucleated Red Blood Cells 0.1 % D-Dimer, Quantitative 1.88 H 0.0-0.49 mg/L FEU Sodium Level 148 H 136-145 mmol/L Potassium Level 3.6 3.5-5.1 mmol/L Chloride Level 109 H 98-107 mmol/L Carbon Dioxide Level 28 20-31 mmol/L Anion Gap 11 5-15 Blood Urea Nitrogen 8 L 9-23 mg/dL Creatinine 0.99 0.700-1.30 mg/dL Glomerular Filtration Rate Calc 88 >90 mL/min BUN/Creatinine Ratio 8.1 L 10.0-20.0 Serum Glucose 107 H 74-106 mg/dL Calcium Level 9.3 8.7-10.4 mg/dL Magnesium Level 2.1 1.6-2.6 mg/dL Total Bilirubin 1.7 H 0.2-1.0 mg/dL Aspartate Amino Transferase (AST) 30 13-40 U/L Alanine Aminotransferase (ALT) 13 7-40 U/L Alkaline Phosphatase 137 H 46-116 U/L B-Type Natriuretic Peptide 1074.53 0-100 pg/mL Total Protein 7.3 5.7-8.2 g/dL Albumin 4.2 3.2-4.8 g/dL X-Ray, Labs, Meds, VS Comment Course in the emergency department eventful patient came in complaining of shortness of breath on and off for the past two months patient has a history of CHF and CKD he is allergic to morphine Blood pressure 99/60 CBC normal D-dimer elevated at 1.88 Magnesium 2.1 BNP 1074.53 Troponin 23 and 22 Chest x-ray shows cardiomegaly with CHF CT angiogram of the chest shows no pulmonary emboli bilateral pleural effusion Patient will be admitted for further care Time of 1ST Reevaluation: 11:00 Reevaluation 1ST: Unchanged Reevaluation 2ND: Unchanged Patient Education/Counseling: Diagnosis, Treatment, Prognosis Family Education/Counseling: Diagnosis, Treatment, Prognosis, No Family Present SEPSIS Sepsis Screen Date sepsis recognized/suspect: Sep 17, 2025 Time Sepsis recognized/suspect: 1011 Recent Procedure: No On Antibiotic Therapy: No Respiratory Rate >20: No Heart Rate >90: Yes Temp<36 C (96.8 F) or >38.3 C: No SBP <90 or MAP <65 mmHG: No New Acute Mental Status Change: No Is the patient on CPAP, BIPAP,: No Physician Orders Heplock Iv (09/17/25 10:30) Blood Pressure (09/17/25 10:30) Oxygen (09/17/25 10:30) Pulse Oximetry (09/17/25 10:30) Chest Two Views Routine (09/17/25 10:30) Electrocardigram (09/17/25 10:30) Office Supervisor (09/17/25 10:33) Blood Pressure (09/17/25 10:33) Oxygen (09/17/25 10:33) Pulse Oximetry (09/17/25 10:33) Sodium Chloride 0.9% (09/17/25 10:45) Ct Angio Chest Contrast (09/17/25 14:19) Vital Signs Date Time Temp Pulse Resp B/P (MAP) Pulse Ox O2 Delivery O2 Flow Rate FiO2 09/17/25 13:23 98.7 105 18 109/67 (81) 98 98.7 09/17/25 11:38 99.5 107 18 107/73 (84) 96 99.5 09/17/25 11:38 Room Air* 0 21 09/17/25 10:09 97.5 109 18 99/60 96 97.5 Laboratory Tests Test 09/17/25 10:47 White Blood Count 5.9 10^3/uL (4.4-10.8) Departure 1 Departure Time of Disposition: 16:22 Impression: Primary Impression: Shortness of breath Additional Impressions: Acute systolic heart failure Elevated d-dimer Generalized weakness Disposition: ADMITTED INPATIENT Admit to: Tele Condition: Serious Critical Care Note Critical Care Time?: No Stability Stability form required: Yes Heart Score Heart Score: Heart Score Response (Comments) Value History Moderate Suspicious 1 EKG N/A 0 Age 45-64 1 Risk Factors 1 or 2 risk factors 1 Troponin Normal limit 0 Total 3 I personally scribed for BAKARI PAGAN MD ([email or web address]) on 09/17/25 at 10:34. Electronically submitted by Sudarshan Daniels ([email or web address]). BAKARI PAGAN MD Sep 17, 2025 10:34
[2025-09-17] MEDS ORDERED: SODIUM CHLORIDE 0.9% 1,000 ML IV ONE (10:45)
--- NOTE | 2025-09-17 11:04 | DVH ---
XY CHEST TWO VIEWS ROUTINE CLINICAL HISTORY: sob COMPARISON: XY CHEST PORTABLE on DOS: 04/08/25, XY CHEST TWO VIEWS ROUTINE on DOS: 01/26/25, XY CHEST PORTABLE on DOS: 11/25/24, CT CT ANGIO CHEST CONTRAST on DOS: 10/19/24, XY CHEST TWO VIEWS ROUTINE on DOS: 10/19/24 TECHNIQUE: Frontal and lateral view of the chest was obtained FINDINGS: Lines and Tubes: None Lungs: No focal consolidation. Pleura: No effusion. No pneumothorax. Cardiomediastinal contours:Cardiomegaly Bones: No acute osseous abnormality. IMPRESSION: cardiomegaly with mild chf
[2025-09-17 11:23] LABS: Hematocrit 42.9 % (41.0-53.0); Hemoglobin 13.6 g/dL (13.5-17.5); Mean Corpuscular Hemoglobin 29.5 pg (28.0-32.0); Mean Corpuscular Volume 92.8 fL (80.0-100.0); Nucleated Red Blood Cells % 0.1 %
[2025-09-17 11:38] LABS: Alanine Aminotransferase 13 U/L (7-40); Albumin 4.2 g/dL (3.2-4.8); Anion Gap 11 (5-15); BUN/Creatinine Ratio 8.1 (10.0-20.0); Calcium 9.3 mg/dL (8.7-10.4); Carbon Dioxide 28 mmol/L (20-31); Magnesium 2.1 mg/dL (1.6-2.6); Potassium 3.6 mmol/L (3.5-5.1); Total Protein 7.3 g/dL (5.7-8.2)
[2025-09-17 11:41] LABS: Alkaline Phosphatase 137 U/L (46-116); Bilirubin, Total 1.7 mg/dL (0.2-1.0); Blood Urea Nitrogen 8 mg/dL (9-23); Chloride 109 mmol/L (98-107); Glucose 107 mg/dL (74-106); Sodium 148 mmol/L (136-145)
[2025-09-17] MEDS: IOHEXOL 350 MG/ML 100ML IJ ONE (14:56)
--- NOTE | 2025-09-17 15:31 | DVH ---
Exam: CT CT ANGIO CHEST CONTRAST Reason for study/ Clinical History: Shortness of breath pulmonary embolism Comparison Study: XY CHEST TWO VIEWS ROUTINE on DOS: 09/17/25 Exam Date: 09/17/2025 02:48 PM Radiation Dose Information: CT Dose: CTDI volume is 31 mGy. Dose-length product is 423 mGy*cm TECHNIQUE: Multidetector CTA of the chest was performed of the chest with intravenous contrast. PULMONARY ANGIOGRAPHY PROTOCOL was utilized using a bolus- tracking technique centered on the main pulmonary artery. Axial, coronal and sagittal multiplanar and MIP reformats were performed. Findings: Lower neck: Unremarkable. Lungs and Pleura: No consolidation or suspicious pulmonary nodules. Trace right and small left pleural effusions. Lymph nodes: No mediastinal, hilar, or axillary lymphadenopathy. Cardiovascular and Mediastinum: Cardiomegaly with reflux of contrast into the hepatic veins. No significant pericardial effusion. No significant coronary calcifications. Pulmonary arteries: Limited evaluation of the distal segmental and subsegmental emboli due to motion degradation. No definite emboli. Osseous and soft tissues: No suspicious osseous lesions. Mild body wall anasarca. Upper abdomen: Small volume ascites. IMPRESSION: Limited evaluation of the distal segmental and subsegmental emboli due to motion degradation. No definite emboli. Cardiomegaly with reflux of contrast into the hepatic veins suggestive of right heart failure. Small volume ascites. Trace right and small left pleural effusions.
[2025-09-17] MEDS ORDERED: MORPHINE SULFATE INJ 2 MG/ml SYRG IV PRN (17:15)
[2025-09-17] MEDS ORDERED: NITROGLYCERIN 0.4 MG SL TAB SL PRN (17:15)
[2025-09-17] MEDS: FUROSEMIDE 40 MG/4 ML VIAL IV ONE (17:45)
[2025-09-17] MEDS: SPIRONOLACTONE 25 MG TAB PO ONE (17:45)
[2025-09-17] MEDS ORDERED: ONDANSETRON HCL 4 MG/2 ML VIAL IV PRN (18:00)
--- NOTE | 2025-09-17 20:23 | DVHHPRES ---
History of Present Illness Resident Creating Document: DIONE PLASCENCIA RESIDENT History of Present Illness Patient is a 60-year-old male with a history of heart failure with reduced ejection fraction, dilated cardiomyopathy, tobacco use presented to the ED for a chief complaint of worsening shortness of breath for the last week. Patient reports to be noncompliant with his heart failure medication. He also reported of some cough which has been chronic but in the last week reports of having very mild phlegm which is whitish to yellow in color. Patient denied any fever or chills. He reports shortness of breath worsened on lying down. Denied any chest pain. In the ED patient was seen to be tachycardic, D-dimer elevated and CT angio chest was done which did not show any definite emboli, limited evaluation of distal segmental and subsegmental emboli, trace right and small left pleural effusion seen, no consolidation was seen. Past medical history as per HPI Past surgical history: Denies Social history: Smokes about 1-2 cigarettes per day, denies alcohol or any other drug use Home medications: Lasix 40 mg daily, spironolactone 25 mg daily, carvedilol 3.125 mg b.i.d., aspirin, Entresto but is not compliant with the medication Review of Systems Review of Systems Reports shortness of breath Denies chest pain, nausea or vomiting No other acute complaints Allergies: Coded Allergies: Morphine (Verified Allergy, Unknown, 01/26/25) Medications Current Medications Medications Dose Ordered Sig/Marifer Route Start Time Stop Time Status Last Admin Dose Admin Nitroglycerin 0.4 mg Q5MINP PRN SL 09/17/25 17:15 Morphine Sulfate 2 mg Q30M PRN IV 09/17/25 17:15 Hold Furosemide 40 mg DAILY IV 09/18/25 10:00 Carvedilol 3.125 mg Q12HR PO 09/17/25 22:00 Losartan Potassium 25 mg DAILY PO 09/18/25 10:00 Ondansetron HCl 4 mg Q6HPRN PRN IV 09/17/25 18:00 Acetaminophen 650 mg Q6HP PRN PO 09/17/25 18:00 Enoxaparin Sodium 40 mg DAILY SC 09/18/25 10:00 Aspirin 81 mg DAILY PO 09/18/25 10:00 Exam Vital Signs Vital Signs Date Time Temp Pulse Resp B/P (MAP) Pulse Ox O2 Delivery O2 Flow Rate FiO2 09/17/25 17:45 108/79 09/17/25 17:33 97.7 106 18 96 97.7 09/17/25 11:38 Room Air* 0 21 Exam Skin - Patients skin is warm and dry. 2+ edema in the bilateral lower extremity HEENT - normocephalic, atraumatic, moist mucous membranes, no pallor, no icterus Neck - full ROM, no LAD, JVP could not be assessed with the patient was sitting in a chair Pulmonary - B/L clear breath sounds with a minimal basilar rales, decreased breath sounds in the lower left cardiovascular - regular S1,S2 heard, no added sounds, no murmurs heard. GI - soft, nontender abdomen. no hepatospleenomegaly. Bowel sounds normoactive Neurological - Patient is A/O X 4 . Bilateral upper extremity strength 5/5, bilateral lower extremity strength 5/5, no facial droop, normal speech, no tremor, no sensory deficiets. Labs/Xrays Labs Test 09/17/25 13:40 09/17/25 10:47 Range/Units Troponin I High Sensitivity 24 </=54 ng/L White Blood Count 5.9 4.4-10.8 10^3/uL Red Blood Count 4.63 4.5-5.90 10^6/uL Hemoglobin 13.6 13.5-17.5 g/dL Hematocrit 42.9 41.0-53.0 % Mean Corpuscular Volume 92.8 80.0-100.0 fL Mean Corpuscular Hemoglobin 29.5 28.0-32.0 pg Mean Corpuscular Hemoglobin Concent 31.8 L 32.0-36.0 g/dL Red Cell Distribution Width 16.4 H 11.8-14.3 % Platelet Count 236 140-450 10^3/uL Mean Platelet Volume 8.8 6.9-10.8 fL Neutrophils (%) (Auto) 71.3 37.0-80.0 % Lymphocytes (%) (Auto) 19.1 10.0-50.0 % Monocytes (%) (Auto) 6.8 0.0-12.0 % Eosinophils (%) (Auto) 2.4 0.0-7.0 % Basophils (%) (Auto) 0.4 0.0-2.0 % Neutrophils # (Auto) 4.2 1.6-8.6 10 ^3/uL Lymphocytes # (Auto) 1.1 0.4-5.4 10 ^3/uL Monocytes # (Auto) 0.4 0-1.3 10 ^3/uL Eosinophils # (Auto) 0.1 0-0.8 10 ^3/uL Basophils # (Auto) 0 0-0.2 10 ^3/uL Nucleated Red Blood Cells 0.1 % D-Dimer, Quantitative 1.88 H 0.0-0.49 mg/L FEU Sodium Level 148 H 136-145 mmol/L Potassium Level 3.6 3.5-5.1 mmol/L Chloride Level 109 H 98-107 mmol/L Carbon Dioxide Level 28 20-31 mmol/L Anion Gap 11 5-15 Blood Urea Nitrogen 8 L 9-23 mg/dL Creatinine 0.99 0.700-1.30 mg/dL Glomerular Filtration Rate Calc 88 >90 mL/min BUN/Creatinine Ratio 8.1 L 10.0-20.0 Serum Glucose 107 H 74-106 mg/dL Calcium Level 9.3 8.7-10.4 mg/dL Magnesium Level 2.1 1.6-2.6 mg/dL Total Bilirubin 1.7 H 0.2-1.0 mg/dL Aspartate Amino Transferase (AST) 30 13-40 U/L Alanine Aminotransferase (ALT) 13 7-40 U/L Alkaline Phosphatase 137 H 46-116 U/L B-Type Natriuretic Peptide 1074.53 0-100 pg/mL Total Protein 7.3 5.7-8.2 g/dL Albumin 4.2 3.2-4.8 g/dL SEPSIS Sepsis Screen Date sepsis recognized/suspect: Sep 17, 2025 Time Sepsis recognized/suspect: 1011 Recent Procedure: No On Antibiotic Therapy: No Respiratory Rate >20: No Heart Rate >90: Yes Temp<36 C (96.8 F) or >38.3 C: No SBP <90 or MAP <65 mmHG: No New Acute Mental Status Change: No Is the patient on CPAP, BIPAP,: No Physician Orders Ct Angio Chest Contrast (09/17/25 14:19) Admit (09/17/25 17:14) Nitroglycerin Sublingual (Ntrostat Subli (09/17/25 17:15) Morphine Sulfate Injection (09/17/25 17:15) Oxygen By Nasal Cannula (09/17/25 17:14) Stat Ekg For Chest Pain (09/17/25 17:14) Notify Of Changes From Base (09/17/25 17:14) Security Rep For 24 Hours (09/17/25 17:14) Emergency Dysrhythmia Protocol (09/17/25 17:14) Pharmacy Clarification: (09/17/25 17:44) Cardiac Diet-2gna,Lofat,Lochol (09/17/25 Dinner) Furosemide Injection (Lasix Injection) (09/18/25 10:00) Covid19 Antigen Torrie (09/17/25 ) Rapid Influenza A&B (09/17/25 18:00) Carvedilol Tablet (Coreg Tablet) (09/17/25 22:00) Losartan Tablet (Cozaar Tablet) (09/18/25 10:00) Ondansetron Hcl (Zofran) (09/17/25 18:00) Acetaminophen Tablet (Tylenol Tablet) (09/17/25 18:00) Enoxaparin Sodium (Lovenox) (09/18/25 10:00) Aspirin Enteric Coated Tablet (Ecotrin E (09/18/25 10:00) Vital Signs Date Time Temp Pulse Resp B/P (MAP) Pulse Ox O2 Delivery O2 Flow Rate FiO2 09/17/25 17:45 108/79 09/17/25 17:33 97.7 106 18 108/79 (89) 96 97.7 09/17/25 13:23 98.7 105 18 109/67 (81) 98 98.7 Laboratory Tests Test 09/17/25 10:47 White Blood Count 5.9 10^3/uL (4.4-10.8) Medications Medications Dose Ordered Sig/Marifer Route Start Time Stop Time Status Last Admin Dose Admin Furosemide 40 mg ONCE ONCE IV 09/17/25 16:30 09/17/25 16:31 DC 09/17/25 17:45 40 MG Spironolactone 50 mg ONCE ONCE PO 09/17/25 16:30 09/17/25 16:31 DC 09/17/25 17:45 50 MG Assessment/Plan Assessment/Plan Acute on chronic heart failure with a reduced ejection fraction Dilated cardiomyopathy Possible pneumonia likely viral/bacterial - IV Lasix 40 mg daily - continued on carvedilol 3.125 b.i.d - losartan 25 mg daily - doxycycline 100 mg b.i.d. - COVID and influenza pending - strict I&Os PUD prophylaxis: Protonix DVT prophylaxis: Enoxaparin Goals of care discussed with the patient for over 18 minutes. Full code Time spent: 31 minutes Plan discussed with Dr. Steele Plan discussed with: Patient, Other (RN) My Orders Orders - DIONE PLASCENCIA RESIDENT Procedure Category Date Status Time Admit ADMIT 09/17/25 Transmitted 17:14 Nitroglycerin PHA 09/17/25 In Process Sublingual (Ntrostat 17:15 Morphine Sulfate PHA 09/17/25 In Process Injection 17:15 Oxygen By Nasal RT 09/17/25 Transmitted Cannula 17:14 Stat Ekg For Chest [facility] 09/17/25 In Process Pain 17:14 Notify Md Of Changes [facility] 09/17/25 In Process From Base 17:14 Security Rep For [facility] 09/17/25 In Process 24 Hours 17:14 Emergency Dysrhythmia [facility] 09/17/25 In Process Protocol 17:14 Pharmacy [facility] 09/17/25 In Process Clarification: 17:44 Cardiac DIET 09/17/25 Transmitted Diet-2gna,Lofat,Lochol Dinner Furosemide Injection PHA 09/18/25 In Process (Lasix Injection) 10:00 Covid19 Antigen [facility] 09/17/25 Logged Rapid Influenza A&B LAB 09/17/25 Logged 18:00 Carvedilol Tablet PHA 09/17/25 In Process (Coreg Tablet) 22:00 Losartan Tablet PHA 09/18/25 In Process (Cozaar Tablet) 10:00 Ondansetron Hcl PHA 09/17/25 In Process (Zofran) 18:00 Acetaminophen Tablet PHA 09/17/25 In Process (Tylenol Tablet) 18:00 Enoxaparin Sodium PHA 09/18/25 In Process (Lovenox) 10:00 Aspirin Enteric PHA 09/18/25 In Process Coated Tablet 10:00 Date of Service: Sep 17, 2025 Billing Provider: SHANTE STEELE MD Common Visit Codes: 73545-[id number] INP/OBS CARE (HIGH) Secondary Visit Codes: [id number]-[id number] CARE PLAN 30 MINUTES DIONE PLASCENCIA RESIDENT Sep 17, 2025 20:23 SHANTE STEELE MD Sep 18, 2025 22:40
[2025-09-17 20:49] VITALS: BP 98/51; PULSE 103; RESP 18; TEMP 98.3; O2SAT 98
[2025-09-17 21:00] VITALS: BP 98/51; PULSE 103; RESP 18; TEMP 98.3; O2SAT 98
[2025-09-17 21:50] VITALS: BP 88/60; PULSE 98; RESP 18; TEMP 98; O2SAT 96
[2025-09-17] MEDS: CARVEDILOL 3.125 MG TAB PO SCH (21:53)
[2025-09-17] MEDS: DOXYCYCLINE 100 MG TAB/CAP PO SCH (22:02)
[2025-09-17 23:03] LABS: COVID19 ANTIGEN SOFIA FIA NEGATIVE (NEGATIVE)
[2025-09-17 23:05] VITALS: PULSE 96; RESP 19; O2SAT 98
[2025-09-18] VITALS (8 sets, daily range): BP systolic 91–102; BP diastolic 51–71; PULSE 75–111; RESP 17–19; TEMP 97.9–98.4; O2SAT 92–98
[2025-09-18 06:09] LABS: Hematocrit 37.7 % (41.0-53.0); Hemoglobin 12.6 g/dL (13.5-17.5); Mean Corpuscular Hemoglobin 30.0 pg (28.0-32.0); Mean Corpuscular Volume 89.9 fL (80.0-100.0); Nucleated Red Blood Cells % 0.2 %
[2025-09-18 06:20] LABS: Sodium 144 mmol/L (136-145)
[2025-09-18 06:21] LABS: Anion Gap 12 (5-15); Carbon Dioxide 25 mmol/L (20-31)
[2025-09-18 06:27] LABS: BUN/Creatinine Ratio 8.9 (10.0-20.0); Glucose 77 mg/dL (74-106)
[2025-09-18 06:28] LABS: Blood Urea Nitrogen 7 mg/dL (9-23); Calcium 8.6 mg/dL (8.7-10.4); Chloride 107 mmol/L (98-107); Potassium 3.5 mmol/L (3.5-5.1)
[2025-09-18] MEDS: ASPirin-EC 81 mg tab PO SCH (09:56)
[2025-09-18] MEDS: PANTOPRAZOLE 40 MG TAB PO SCH (09:56)
[2025-09-18] MEDS: FUROSEMIDE 40 MG/4 ML VIAL IV SCH (09:57)
[2025-09-18] MEDS: ENOXAPARIN SOD 40 MG/0.4 ML SYRINGE SC SCH (10:03)
[2025-09-18] MEDS: LOSARTAN POTASSIUM 25 MG TAB PO SCH (12:38)
--- NOTE | 2025-09-18 13:12 | ECG ---
[facility] Test Date: 2025-09-18 Test Time: 11:59:02 Pat Name: ANISA COMER Department: Respiratoy Room: 0212T B Gender: M Investment Director: VALENTINA : 1965 Requested By: BAKARI PAGAN Order Number: [id number] Reading MD: Kevyn Finnegan Measurements Intervals [place] Rate: 109 P: 44 LA: 150 QRS: -19 QRSD: 75 T: 243 QT: 381 QTc: 514 Interpretive Statements Sinus tachycardia Probable left atrial enlargement Borderline left axis deviation Anterior infarct, old Nonspecific T abnormalities, lateral leads Prolonged QT interval Electronically Signed On 09-19-2025 17:37:56 PST by Kevyn Finnegan Please click the below link to view image of tracing.
--- NOTE | 2025-09-18 16:43 | DVHPNRES ---
Progress Note Date Seen: Sep 18, 2025 Resident Creating Document: SUSHILA RATLIFF RESIDENT Medical Necessity Reason Pt with a Central, PICC or Fol: No Subjective Review of Systems Karl Carey is a 60-year-old male with past medical history of heart failure with reduced ejection fraction 20-25%, dilated cardiomyopathy, tobacco use who presented to the ED with a chief complaint of worsening shortness of breath since 1 month. The patient mentions he has not had shortness of breadth with routine activities and feels more exhausted than usual. He mentions shortness of breath improves on sitting up and he has to sit up from lying down position sometimes to get some air. He has also had a dry cough along with it. He denied any chest pain or tightness in the chest. Patient had echo in November 2024 has revealed ejection fraction of 20-25% with global hypokinesis. The patient was started on GDMT, but has been noncompliant with it, as he mentions medication makes him feel more exhausted. D-dimer on admission was 1.88, BNP was 1074.53. CT angio revealed no definitive emboli but limited evaluation of distal segments, cardiomegaly with right heart failure, small pleural effusion and small volume ascites. Patient was started on spironolactone 50 mg p.o. daily. Past medical history: HFrEF 20-25%, dilated cardiomyopathy Past surgical history: Right nephrectomy 20 years back Home medications: Lasix 40 mg daily, spironolactone 25 mg daily, carvedilol 3.125 mg b.i.d., aspirin, Entresto but is not compliant with the medication Social & Personal history: Lives at home with family, smokes 1-2 cigarettes per day, denies alcohol or drug use Allergies: Morphine Patient seen and examined at bedside. Patient is alert and oriented to time, place person and responding to all questions. Eyes: No Pain, No Vision change, No Conjunctivae inflammation, No Eyelid inflammation, No Other, No Redness ENT: No Ear pain, No Ear discharge, No Nose pain, No Nose discharge, No Nose congestion, No Mouth pain, No Mouth swelling, No Throat pain, No Throat swelling, No Other Cardiovascular: No Chest Pain, No Palpitations, No Orthopnea, No Paroxysmal No Dyspnea, No Edema, No Lt Headedness, No Other Respiratory: No Cough, No Dry, no Shortness of breath, SOB with exertion, No Wheezing, No Hemoptysis, No Pleuritic Pain, No Sputum, No Other Gastrointestinal: No Nausea, No Vomiting, No Abdominal Pain, No Diarrhea, No Constipation, No Melena, No Hematochezia, No Other Genitourinary: No Dysuria, No Frequency, No Incontinence, No Hematuria, No Retention, No Other Objective vital signs Vital Sign Date Time Temp Pulse Resp B/P (MAP) Pulse Ox O2 Delivery O2 Flow Rate FiO2 09/18/25 13:00 98.0 111 18 99/69 (79) 92 98.0 09/18/25 08:00 Room Air* 0 21 Total Intake and Output 09/17/25 09/17/25 09/18/25 15:00 23:00 07:00 Intake Total 200 ml Output Total 200 ml Balance 0 ml medications Current Medications Medications Dose Ordered Sig/Marifer Route Start Time Stop Time Status Last Admin Dose Admin Nitroglycerin 0.4 mg Q5MINP PRN SL 09/17/25 17:15 Morphine Sulfate 2 mg Q30M PRN IV 09/17/25 17:15 Hold Furosemide 40 mg DAILY IV 09/18/25 10:00 09/18/25 09:57 40 MG Carvedilol 3.125 mg Q12HR PO 09/17/25 22:00 Losartan Potassium 25 mg DAILY PO 09/18/25 10:00 Ondansetron HCl 4 mg Q6HPRN PRN IV 09/17/25 18:00 Acetaminophen 650 mg Q6HP PRN PO 09/17/25 18:00 Enoxaparin Sodium 40 mg DAILY SC 09/18/25 10:00 09/18/25 10:03 40 MG Aspirin 81 mg DAILY PO 09/18/25 10:00 09/18/25 09:56 81 MG Doxycycline Monohydrate 100 mg Q12HR PO 09/17/25 22:00 09/18/25 12:44 100 MG Pantoprazole Sodium 40 mg DAILY@0600 PO 09/18/25 06:00 09/18/25 09:56 40 MG Spironolactone 50 mg DAILY PO 09/19/25 10:00 Examination General Appearance: Cooperative. Well developed. Well nourished. NAD Head Exam: Normal inspection Neck Exam: Normal inspection. Non-tender. Normal alignment Pulmonary/Respiratory: Chest non-tender. mildly reduced bilateral breath sounds, no crackles, no wheezing. Cardiovascular/Chest: Regular rate and rhythm. No murmurs. No JVD. Peripheral Pulses: 2+ Radial (R). 2+ Radial (L). 2+ Pedal (R). 2+ Pedal (L) Abdominal Exam: Normal bowel sounds. Soft. normal abdomen, no visible veins, Nontender. No hepatospenomegaly. No masses Ankle Exam: Negative ankle edema Lower extremities: 1+ bilateral lower extremity edema Neuro/Mental Status: A&O x4. Coherent. Thoughts/Psych: Normal thought pattern. Appropriate mood and affect. Good judgement and insight Skin Exam: Normal inspection. Normal color. Warm. Dry laboratory and microbiology Laboratory Tests 09/18/25 05:29 Test 09/18/25 05:29 Range/Units Serum Glucose 77 74-106 mg/dL Microbiology Date/Time Source Procedure Growth Status 09/17/25 21:50 Nose MRSA Screen - Final Complete Labs and/or images reviewed: Labs reviewed by me, Image(s) reviewed by me Problem List/Assessment/Plan Problem List/Assessment/Plan # Acute on chronic heart failure with reduced ejection fraction, EF 20-25% # Biventricular failure # Dilated cardiomyopathy # Possible pneumonia likely viral/bacterial # Ruled out PE - D-dimer 1.88 - CT angio- Limited evaluation of the distal segmental and subsegmental emboli due to motion degradation, No definite emboli, Cardiomegaly with reflux of contrast into the hepatic veins suggestive of right heart failure,Small volume ascites and Trace right and small left pleural effusions. -CXR- cardiomegaly with mild chf - Echo done on 12/08/24- Biatrial enlargement with LV enlargement, EF of 20-25% with severe global hypokinesis. - IV Lasix 40 mg daily - continued on carvedilol 3.125 b.i.d - losartan 25 mg daily - doxycycline 100 mg b.i.d. - strict I&Os - aspirin 81 mg daily p.o. - spironolactone 50 mg daily p.o. PUD prophylaxis: Protonix DVT prophylaxis: Enoxaparin 40 mg daily SC Goals of care discussed with the patient for over 18 minutes,Full code Plan discussed with Dr. Steele Plan discussed with: Patient My Orders My Orders Orders - SUSHILA RATLIFF RESIDENT Procedure Category Date Status Time Spironolactone PHA 09/19/25 In Process (Aldactone) 10:00 Date of Service: Sep 18, 2025 Billing Provider: SHANTE STEELE MD Common Visit Codes: [id number] INP/OBS CARE(HIGH) SUSHILA RATLIFF RESIDENT Sep 18, 2025 16:43 SHANTE STEELE MD Sep 18, 2025 22:42
[2025-09-19 01:00] VITALS: BP 85/58; PULSE 107; RESP 18; TEMP 97.7; O2SAT 98
[2025-09-19] MEDS: ACETAMINOPHEN 325 MG TAB PO PRN (02:31)
[2025-09-19 05:00] VITALS: BP 101/80; PULSE 102; RESP 18; TEMP 97.9; O2SAT 92
[2025-09-19 06:01] LABS: Hematocrit 36.1 % (41.0-53.0); Hemoglobin 11.9 g/dL (13.5-17.5)
[2025-09-19 06:16] LABS: Chloride 106 mmol/L (98-107); Sodium 144 mmol/L (136-145)
[2025-09-19 06:17] LABS: Anion Gap 9 (5-15); Carbon Dioxide 29 mmol/L (20-31)
[2025-09-19 06:18] LABS: Calcium 8.8 mg/dL (8.7-10.4); Potassium 3.5 mmol/L (3.5-5.1)
[2025-09-19 06:22] LABS: BUN/Creatinine Ratio 14.0 (10.0-20.0); Blood Urea Nitrogen 14 mg/dL (9-23); Glucose 88 mg/dL (74-106)
[2025-09-19 08:00] VITALS: PULSE 101; PULSE 64; RESP 19; O2SAT 94
[2025-09-19 09:07] VITALS: BP 99/65; PULSE 64; RESP 19; TEMP 98.4; O2SAT 94
[2025-09-19] MEDS: SPIRONOLACTONE 25 MG TAB PO SCH (09:51)
[2025-09-19 13:04] VITALS: BP 100/79; PULSE 105; RESP 18; TEMP 98.3; O2SAT 98
[2025-09-19 13:20] VITALS: BP 99/65; PULSE 64; RESP 19; TEMP 98.6; O2SAT 94
--- NOTE | 2025-09-19 14:43 | CONS ---
Pharmacy Clinical Information: From Heart Failure Fallout Report on CQM Application, Karl Carey is a 60 year old male with PMH of heart failure with reduced ejection fraction, dilated cardiomyopathy, tobacco use He took empagliflozin 10mg at home. He does not have UTI and his renal clearance is fine. Please consider adding empagliflozin 10mg if clinically appropriate [facility] Sep 19, 2025 14:43
[2025-09-19] MEDS ORDERED: FURO1TAB33 PO (15:09)
--- NOTE | 2025-09-19 17:37 | DVHDSRES ---
Discharge Summary Date of Admission Resident Creating Document: SUSHILA RATLIFF RESIDENT Sep 17, 2025 at 17:14 Date of Discharge: Sep 19, 2025 Labs/Diagnostic Data: Laboratory Results Test 09/19/25 04:41 09/18/25 05:29 09/17/25 21:50 09/17/25 13:40 Hemoglobin 11.9 g/dL (13.5-17.5) Hematocrit 36.1 % (41.0-53.0) Sodium Level 144 mmol/L (136-145) Potassium Level 3.5 mmol/L (3.5-5.1) Chloride Level 106 mmol/L (98-107) Carbon Dioxide Level 29 mmol/L (20-31) Anion Gap 9 (5-15) Blood Urea Nitrogen 14 mg/dL (9-23) Creatinine 1.00 mg/dL (0.700-1.30) Glomerular Filtration Rate Calc 87 mL/min (>90) BUN/Creatinine Ratio 14.0 (10.0-20.0) Serum Glucose 88 mg/dL (74-106) Calcium Level 8.8 mg/dL (8.7-10.4) White Blood Count 5.4 10^3/uL (4.4-10.8) Red Blood Count 4.19 10^6/uL (4.5-5.90) Mean Corpuscular Volume 89.9 fL (80.0-100.0) Mean Corpuscular Hemoglobin 30.0 pg (28.0-32.0) Mean Corpuscular Hemoglobin Concent 33.4 g/dL (32.0-36.0) Red Cell Distribution Width 15.8 % (11.8-14.3) Platelet Count 245 10^3/uL (140-450) Mean Platelet Volume 8.6 fL (6.9-10.8) Neutrophils (%) (Auto) 62.7 % (37.0-80.0) Lymphocytes (%) (Auto) 21.9 % (10.0-50.0) Monocytes (%) (Auto) 11.0 % (0.0-12.0) Eosinophils (%) (Auto) 3.9 % (0.0-7.0) Basophils (%) (Auto) 0.5 % (0.0-2.0) Neutrophils # (Auto) 3.4 10 ^3/uL (1.6-8.6) Lymphocytes # (Auto) 1.2 10 ^3/uL (0.4-5.4) Monocytes # (Auto) 0.6 10 ^3/uL (0-1.3) Eosinophils # (Auto) 0.2 10 ^3/uL (0-0.8) Basophils # (Auto) 0 10 ^3/uL (0-0.2) Nucleated Red Blood Cells 0.2 % Influenza Type A Antigen Negative (Negative) Influenza Type B Antigen Negative (Negative) SARS-CoV-2 Antigen (Rapid) Negative (NEGATIVE) Troponin I High Sensitivity 24 ng/L (</=54) Test 09/17/25 10:47 D-Dimer, Quantitative 1.88 mg/L FEU (0.0-0.49) Magnesium Level 2.1 mg/dL (1.6-2.6) Total Bilirubin 1.7 mg/dL (0.2-1.0) Aspartate Amino Transferase (AST) 30 U/L (13-40) Alanine Aminotransferase (ALT) 13 U/L (7-40) Alkaline Phosphatase 137 U/L (46-116) B-Type Natriuretic Peptide 1074.53 pg/mL (0-100) Total Protein 7.3 g/dL (5.7-8.2) Albumin 4.2 g/dL (3.2-4.8) Other Laboratory Tests 09/19/25 04:41 09/18/25 05:29 Brief Hx & Hospital Course: Karl Carey is a 60-year-old male with past medical history of heart failure with reduced ejection fraction 20-25%, dilated cardiomyopathy, tobacco use who presented to the ED with a chief complaint of worsening shortness of breath since 1 month. The patient mentioned he has had shortness of breath with routine activities and feels more exhausted than usual. He mentions shortness of breath improves on sitting up and he has to sit up from lying down position sometimes to get some air. He has also had a dry cough along with it. He denied any chest pain or tightness in the chest. Patient had echo in November 2024 has revealed ejection fraction of 20-25% with global hypokinesis. The patient was started on GDMT, but has been noncompliant with it, as he mentions medication makes him feel more exhausted. D-dimer on admission was 1.88, BNP was 1074.53. CT angio revealed no definitive emboli but limited evaluation of distal segments, cardiomegaly with right heart failure, small pleural effusion and small volume ascites. Patient was started on spironolactone 50 mg p.o. daily. He continued to breathe comfortably on room air, and mentioned improvement in symptoms. professional services consultant consult for home health for safety and medication management was requested. He was discharged in a stable condition. All medications and recommendations were thoroughly explained to the patient and he demonstrated understanding of the same. He was explained that since he has been noncompliant with his medications, he does not qualify for an AICD placement. He was explained the risk of sudden cardiac given his condition. He was recommended to be compliant with the medication for at least 3 months to be able to qualify for an AICD. He was recommended to follow up in [place] clinic in 1 week, with PCP in 1-2 weeks and with Cardiology in 1-2 weeks with a blood pressure log. Past medical history: HFrEF 20-25%, dilated cardiomyopathy Past surgical history: Right nephrectomy 20 years back Home medications: Lasix 40 mg daily, spironolactone 25 mg daily, carvedilol 3.125 mg b.i.d., aspirin, Entresto but is not compliant with the medication Social & Personal history: Lives at home with family, smokes 1-2 cigarettes per day, denies alcohol or drug use Allergies: Morphine Physical examination on the day of discharge: General Appearance: Cooperative. Well developed. Well nourished. NAD Head Exam: Normal inspection Neck Exam: Normal inspection. Non-tender. Normal alignment Pulmonary/Respiratory: Chest non-tender. mildly reduced bilateral breath sounds, no crackles, no wheezing. Cardiovascular/Chest: Regular rate and rhythm. No murmurs. No JVD. Peripheral Pulses: 2+ Radial (R). 2+ Radial (L). 2+ Pedal (R). 2+ Pedal (L) Abdominal Exam: Normal bowel sounds. Soft. normal abdomen, no visible veins, Nontender. No hepatospenomegaly. No masses Ankle Exam: Negative ankle edema Lower extremities: No edema Neuro/Mental Status: A&O x4. Coherent. Thoughts/Psych: Normal thought pattern. Appropriate mood and affect. Good judgement and insight Skin Exam: Normal inspection. Normal color. Warm. Dry Operations or Procedures 1.PROCEDURE(s): CXR2 - CHEST TWO VIEWS ROUTINE REASON: sob ORDER NUMBER(s): [id number], ACCESSION NUMBER(s): [id number] XY CHEST TWO VIEWS ROUTINE CLINICAL HISTORY: sob COMPARISON: XY CHEST PORTABLE on DOS: 04/08/25, XY CHEST TWO VIEWS ROUTINE on DOS: 01/26/25, XY CHEST PORTABLE on DOS: 11/25/24, CT CT ANGIO CHEST CONTRAST on DOS: 10/19/24, XY CHEST TWO VIEWS ROUTINE on DOS: 10/19/24 TECHNIQUE: Frontal and lateral view of the chest was obtained FINDINGS: Lines and Tubes: None Lungs: No focal consolidation. Pleura: No effusion. No pneumothorax. Cardiomediastinal contours:Cardiomegaly Bones: No acute osseous abnormality. IMPRESSION: cardiomegaly with mild chf 2.PROCEDURE(s): CTACH - CT ANGIO CHEST CONTRAST REASON: Shortness of breath pulmonary embolism ORDER NUMBER(s): [id number], ACCESSION NUMBER(s): [id number] Exam: CT CT ANGIO CHEST CONTRAST Reason for study/ Clinical History: Shortness of breath pulmonary embolism Comparison Study: XY CHEST TWO VIEWS ROUTINE on DOS: 09/17/25 Exam Date: 09/17/2025 02:48 PM Radiation Dose Information: CT Dose: CTDI volume is 31 mGy. Dose-length product is 423 mGy*cm TECHNIQUE: Multidetector CTA of the chest was performed of the chest with intravenous contrast. PULMONARY ANGIOGRAPHY PROTOCOL was utilized using a bolus- tracking technique centered on the main pulmonary artery. Axial, coronal and sagittal multiplanar and MIP reformats were performed. Findings: Lower neck: Unremarkable. Lungs and Pleura: No consolidation or suspicious pulmonary nodules. Trace right and small left pleural effusions. Lymph nodes: No mediastinal, hilar, or axillary lymphadenopathy. Cardiovascular and Mediastinum: Cardiomegaly with reflux of contrast into the hepatic veins. No significant pericardial effusion. No significant coronary calcifications. Pulmonary arteries: Limited evaluation of the distal segmental and subsegmental emboli due to motion degradation. No definite emboli. Osseous and soft tissues: No suspicious osseous lesions. Mild body wall anasarca. Upper abdomen: Small volume ascites. IMPRESSION: Limited evaluation of the distal segmental and subsegmental emboli due to motion degradation. No definite emboli. Cardiomegaly with reflux of contrast into the hepatic veins suggestive of right heart failure. Small volume ascites. Trace right and small left pleural effusions. Condition at Discharge: Fair Final Diagnosis/Problems List Acute on chronic heart failure with reduced ejection fraction, EF 20-25% Biventricular failure Dilated cardiomyopathy Possible pneumonia likely viral/bacterial, ruled out Ruled out PE Discharge Disposition: Home Discharge Instruct/Medications Diet: Cardiac 2g Na,low cholest Activity: No Restrictions, As Tolerated Follow Up/Referral: follow up in dc clinic in 1 week follow up with pcp in 1-2 weeks Scheduled Aspirin (Aspirin Low Dose), 81 MG PO DAILY Carvedilol (Coreg), 3.125 MG PO BID Carvedilol (Coreg), 3.125 MG PO BID Empagliflozin (Jardiance), 10 MG PO DAILY Furosemide (Furosemide), 1 TAB PO DAILY Furosemide (Lasix), 40 MG PO QAM Furosemide (Lasix), 1 TAB PO DAILY Potassium Chloride (Potassium Chloride ER), 20 MEQ PO QAM Sacubitril-Valsartan (Entresto 24-26 mg), 1 TAB PO BID Spironolactone (Aldactone), 25 MG PO DAILY Spironolactone (Aldactone), 25 MG PO DAILY Scheduled PRN Acetaminophen (Acetaminophen), 650 MG PO Q6HP PRN Discharge Statement: "Patient was advised to return to the ER or call 911 if any headaches, dizziness, shortness of breath, chest pain, abdominal pain, bleeding, fevers, or worsening of medical condition. Patient was counseled about treatment plan, medications, possible side effects, patientverbalized understanding. All questions were answered to the best of my ability. This discharge took greater then 30 minutes in planning, reviewing documentation, counseling the patient, and discussing with other team members." ASSESSMENT ASSESSMENT Assessment acute CHF exacerbation Date of Service: Sep 19, 2025 Billing Provider: SHANTE BEDOYA MD Common Visit Codes: [id number] DISCH DAY >30min SUSHILA RATLIFF RESIDENT Sep 19, 2025 17:37
== END 2025-09-19 15:34 | disposition home or self-care (01) | DRG 194 ==
LOC: ER 10:07 → OVERFLOW 17:14 → TELE-CENTR 21:35
PROVIDERS: ADMIT Internal Medicine; ATTEND Internal Medicine
DX: I50.23 Acute on chronic systolic (congestive) heart failure (principal); I42.0 Dilated cardiomyopathy; I50.82 Biventricular heart failure; N18.9 Chronic kidney disease, unspecified; F17.210 Nicotine dependence, cigarettes, uncomplicated; Z20.822 Contact with and (suspected) exposure to COVID-19; Z88.5 Allergy status to narcotic agent; Z91.199 Patient's noncompliance with other medical treatment and regimen due to unspecified reason
CPT/HCPCS: 36415; 71046; 71275; 80048; 80053; 83735; 83880; 84484; 85014; 85018; 85025; 85379; 87081; 87426; 87804; 93005; 96374; G0378